=== PATIENT | male | born 1955 | race Caucasian/White ===

== ENCOUNTER 2019-10-18 07:51 | Outpatient (CLI) | payer OTHER, SELFPAY ==
--- NOTE | 2019-10-18 08:14 | CT_ITS ---
WS: [id number] CT CHEST TECHNIQUE: Contrast enhanced CT of the chest with coronal and sagittal reformatted images. CLINICAL INFORMATION: RIGHT UPPER LOBE NEOPLASM COMPARISON: Outside CT report August 28, 2019. Images not currently available DLP: 908.[address] scans at [facility] use at least one of these dose optimization techniques: automat ed exposure control; mA and/or kV adjustment per patient size (includes targeted exams where dose is matched to clinical indication); or iterative reconstruction. FINDINGS: Moderate chronic emphysematous changes. No acute pulmonary infiltrates. Slightly spiculated pulmonary nodule in the right upper lobe anteriorly measuring 12 x x 6 x 12 mm not significantly changed from the outside report. 4 mm noncalcified pulmonary nodule right upper lobe increased in size since the p rior report. No other visualized nodules. Advanced calcified atheromatous disease involving the aortic arch and great vessels. Ulcerated athero matous disease involving the aortic arch. Left subclavian artery is occluded at just distal to the or igin and reconstitutes proximally at the level of the vertebral artery. Recommend ultrasound to evalu ate for subclavian steal. Moderate narrowing left common carotid artery which remains patent. Coronary calcification. No medias tinal or hilar lymphadenopathy. No axillary lymphadenopathy. Adrenal glands are normal. CT/CT chest w con* [id number] IMPRESSION: 1. Spiculated right upper lobe anterior nodule is stable in size compared to t he prior report. Recommend 6 month follow-up 2. 4 mm noncalcified nodule right upper lobe increased in size compared to the prior report. Recommend 6 month follow-up. 3. Left subclavian artery is occluded just distal to the origin with reconstit ution at the level of the vertebral artery. Recommend ultrasound to evaluate fo r subclavian steal. 4. Advanced atheromatous disease with coronary calcification.
[2019-10-18] MEDS: iohexol 300 mg/mL 100 mL Btl IV (08:41)
== END 2019-10-18 07:52 | disposition home or self-care (01) ==
PROVIDERS: Family Provider Internal Medicine; PCP Internal Medicine; Visit Provider Internal Medicine
DX: D49.1 Neoplasm of unspecified behavior of respiratory system (principal); R91.8 Other nonspecific abnormal finding of lung field; I77.1 Stricture of artery; I25.10 Atherosclerotic heart disease of native coronary artery without angina pectoris
CPT/HCPCS: 71260; Q9967

== ENCOUNTER 2020-01-27 19:57 | Emergency (ER) | payer OTHER, SELFPAY ==
[2020-01-27 20:04] VITALS: BP 177/84; PULSE 91; RESP 20; TEMP 36.6; O2SAT 92; BMI 24.9
[2020-01-27 20:14] VITALS: BMI 21.7
--- NOTE | 2020-01-27 20:17 | ED_ITS ---
HPI - Wound/Laceration General: Chief Complaint: Wound/Laceration Stated Complaint: hand lac Time Seen by Provider: 01/27/20 20:06 History of Present Illness: HPI narrative: Patient is a 64-year-old male who comes to the ED with a laceration on his left hand. An injury occurred just prior to arrival. Patient says he was opening a wine bottle and he used his pocket knife and accidentally cut his left hand. Laceration is in the webspace between thumb and index finger. Initially said there is a lot of bleeding but he was able to put pressure and place a bandage and bleeding stopped. Patient's last tetanus was a year ago. Associated symptoms: Denies chills, fever(s), nausea or vomiting Review of Systems Const: Denies: fever, chills or fatigue Eyes: Denies: change in vision or eye discomfort ENMT: Denies: throat pain, painful swallowing, nasal discharge or nasal congestion Card: Denies: chest pain, palpitations, edema, swelling of feet/ankles, shortness of breath on exertion or shortness of breath when lying down Resp: Denies: shortness of breath, productive cough or non-productive cough GI: Denies: abdominal pain, nausea, vomiting, diarrhea, constipation or blood in stool : Denies: flank pain, difficulty urinating, painful urination or blood in urine Musc: Denies: neck pain, back pain or extremity swelling Skin/Breast: Reports: new lesion (laceration on left hand.); Denies: rash Neuro: Denies: headache, numbness in extremities or weakness in extremities [facility] ED PFSH: Social History Smoking and tobacco status: unknown if ever smoked Physical Exam Const: COMMON NORMALS: no apparent distress, oriented x3 and alert GENERAL APPEARANCE: cooperative and comfortable HENMT: COMMON NORMALS: normocephalic HEAD & SCALP: normocephalic MOUTH: oral and palatal mucosa normal THROAT: posterior oropharynx normal and uvula midline Eye: COMMON NORMALS: PERRL PUPIL: Yes PERRL Neck/C-Spine: COMMON NORMALS: supple GENERAL: Yes normal visual inspection Resp: COMMON NORMALS: normal respiratory effort, no retractions, no use of accessory muscles and clear to auscultation bilaterally AUSCULTATION: clear to auscultation bilaterally Cardio: COMMON NORMALS: regular rate, regular rhythm, S1 normal heart sound, S2 normal heart sound, no gallops, no clicks, no murmurs and peripheral pulses 2+ throughout RATE: regular rate RHYTHM: regular rhythm HEART SOUNDS: S1 normal and S2 normal PERIPHERAL PULSES: pulses 2+ throughout GI: COMMON NORMALS: normal to inspection, nondistended, normoactive bowel sounds, soft to palpation, non-tender and no masses PALPATION: Yes soft : COMMON NORMALS: Yes no CVA tenderness BLADDER/KIDNEY EXAM: Yes no CVA tenderness Back/Pelvis: COMMON NORMALS: no CVA tenderness Extremity: COMMON NORMALS: normal capillary refill GENERAL: Yes normal exam except as noted LEFT UPPER EXTREMITY: Yes hand & digits (Laceration is in the webspace between index and thumb.) Left hand and digits: Yes inspection (1 cm linear laceration, no active bleeding. No erythema, swelling or warmth.), Yes palpation (mild tenderness over laceration), Yes ROM (Full), Yes neurovascular exam (intact) and Yes tendon exam (intact) Neuro: COMMON NORMALS: oriented x3 and moves all extremities SENSORIUM/OR IENTATION: Yes alert Skin: TRAUMA: laceration (1 cm linear laceration on webspace between thumb and index finger left hand.) linear, motor nerve function intact and sensation intact; not actively bleeding Procedures Laceration Laceration 1: Site: hand (web space between thumb and index) Side (If applicable): left Size (cm): 1 Description: linear and clean Depth: simple, single layer Local Anesthetic: other anesthetic (pt refused local anesthetic--he stated he doesn't need.) Pre-repair: irrigated extensively (with NS and peroxide) Skin layer closed with: nylon Size (cm): 4-0 Number of sutures: 3 Technique: simple, interrupted Course Vital Signs: Vital signs: Vital Signs Temperature 98.1 F 01/27/20 20:20 Pulse Rate 88 01/27/20 21:22 Respiratory Rate 16 01/27/20 21:22 Blood Pressure 200/87 01/27/20 21:22 Pulse Oximetry 93 01/27/20 21:22 MDM - Wound/Laceration MDM Narrative: Medical decision making narrative: Patient is a 64-year-old male who comes to the ED with a laceration on left hand. Patient said last tetanus shot was a year ago. Laceration was closed with 3 sutures (see procedure notes). Patient was instructed to follow-up with PCP or ED to have sutures removed in 7 to 10 days. Patient was put on a prophylactic dose of cephalexin. He was told to keep laceration site dry and clean for the next 48 hours and then after that he can clean site and apply new dressing daily. Patient told to look for signs of infection, such as warmth, erythema, drainage and tenderness around the laceration site and if he sees signs of infection to return to the ED for reevaluation. Patient understood and agreed with plan. Discharge Plan Discharge Patient Disposition: Home, Self-Care Clinical Impression: Laceration Condition: Stable Prescriptions: New cephalexin 500 mg capsule 500 mg PO BID 5 Days Qty: 10 RF: 0 No Action Unable to Assess RF: 0 Discharge Orders: Discharge Order (Routine); Ordered 01/27/20 Ordered By: Ezra Liz Referrals: Florentino Tamayo [Primary Care Provider] - Discharge Diet: Regular Discharge Activity: Resume usual activity Patient Instructions: Laceration Activity Restrictions/Additional Instructions: Follow-up with your PCP to have sutures removed in 7 to 10 days. Take full course of antibiotics as prescribed. Keep laceration clean and dry for the next 48 hours. After 48 hours you can clean and re-bandage daily. Look for signs of infection such as warmth, redness, drainage and tenderness around laceration site. If you notice any of those symptoms you can return to the ED for reevaluation. Discharge Date/Time: 01/27/20 21:20 Coding Level of Care Code ED Principal Ios Developer for Brianda Paul Exam Comprehensive
[2020-01-27 20:20] VITALS: BP 190/88; PULSE 68; RESP 18; TEMP 36.7; O2SAT 97
--- NOTE | 2020-01-27 20:25 | PC.NURSE ---
Triage entered in by Britney, RN was entered in by error
[2020-01-27] MEDS: cephALEXin 500 mg Capsule PO (21:09)
[2020-01-27 21:22] VITALS: BP 200/87; PULSE 88; RESP 16; O2SAT 93
== END 2020-01-27 21:20 | disposition home or self-care (01) ==
PROVIDERS: Emergency Provider Physician Assistant; Family Provider Internal Medicine; PCP Internal Medicine
DX: S61.412A Laceration without foreign body of left hand, initial encounter (principal); W26.0XXA Contact with knife, initial encounter
CPT/HCPCS: 12001; 12345; 99283

== ENCOUNTER → 2020-09-28 13:06 | Outpatient (BNVA) | payer OTHER, SELFPAY | PROVIDERS: Family Provider Internal Medicine; PCP Internal Medicine; Visit Provider Internal Medicine | DX: Z11.59 Encounter for screening for other viral diseases (principal) | CPT/HCPCS: 87635 ==

== ENCOUNTER 2021-01-08 07:48 | Outpatient (CLI) | payer OTHER, SELFPAY ==
--- NOTE | 2021-01-08 08:05 | CT_ITS ---
WS: [id number] CTA HEAD AND NECK TECHNIQUE: Contrast enhanced CTA of the head and neck with coronal and sagittal reformatted images an d maximum intensity projection (MIP) images. NASCET criteria utilized. CLINICAL INFORMATION: CAROTID STENOSIS, BILATERAL COMPARISON: December 27, 2018 DLP: 2233.[address] scans at [facility] use at least one of these dose optimization techniques: automat ed exposure control; mA and/or kV adjustment per patient size (includes targeted exams where dose is matched to clinical indication); or iterative reconstruction. FINDINGS: Noncontrast CT demonstrates no evidence of intracranial hemorrhage or mass effect. Moderate small vessel changes with moderate parenchymal volume loss. Chronic lacunar infarcts right caudate. Opacification left maxillary sinus consistent with sinusitis. Mastoid air cells well aerated. RIGHT: Stenosis right common carotid artery origin measuring approximately 50%. Right internal caroti d artery is occluded at the origin. Right ECA is patent. Right ICA remains occluded to the skull base . Dense vascular calcification are not bulb. This appears new from previous. LEFT: Moderate stenosis left common carotid artery origin measuring 69%. Stenosis left proximal commo n carotid artery measuring approximately 60%. Mild atheromatous plaque left carotid bulb. Less than 5 0% left ICA stenosis. Left ICA is patent to the skull base. Tortuous left ICA. Left subclavian artery is occluded at the origin. Left subclavian steal with filling of the left subc lavian artery. Right vertebral artery is patent. Proximal basilar artery is patent. INTRACRANIAL CTA: Proximal basilar artery is patent. Normal vascularity to the WEB DEVELOPMENT DIRECTOR territory bilatera lly. Right ICA is occluded at the skull base. Tortuous left ICA at the skull base which remains patent. Mo derate to severe stenosis left proximal cavernous carotid artery which remains patent. Patent anterio r communicating artery. Azygos ALEXIS with normal filling of the ALEXIS and MCA territories bilaterally. No evidence of high-grade proximal stenosis or aneurysm. Chronic emphysematous changes in the lung apic es. Aortic arch calcification. CT/CT angio headneck* [id number] IMPRESSION: 1. Right ICA is occluded at the origin and remains occluded to the skull base. This is new since 2019. 2. Left common carotid artery stenosis at the origin measuring approximately 6 9%. Less than 50% left ICA stenosis at the bifurcation. Left ICA remains patent to the skull base. 3. Moderate to severe stenosis intracranial ICA proximal cavernous carotid art yoli. Cavernous carotid artery remains patent. 4. Left subclavian artery is occluded with subclavian steal and filling via th e left vertebral artery. 5. Right vertebral artery is patent. 6. Normal vascularity to the ALEXIS MCA territory bilaterally part. Patent anteri or connecting artery. 7. Basilar artery is patent with normal vascularity to the WEB DEVELOPMENT DIRECTOR territory makayla vaca. 8. Left maxillary sinusitis..
[2021-01-08 08:31] LABS: Blood Urea Nitrogen 7 mg/dL (8-23); Glomerular Filtration Rate 136.1 mL/min (90-130)
[2021-01-08] MEDS: iohexol 350 mg/mL 100 mL Btl IV (08:45)
== END 2021-01-08 07:49 | disposition home or self-care (01) ==
PROVIDERS: PCP Family Medicine; Visit Provider Surgery
DX: I65.23 Occlusion and stenosis of bilateral carotid arteries (principal)
CPT/HCPCS: 70496; 70498; 82565; 84520; Q9967

== ENCOUNTER 2021-03-17 07:47 | Outpatient (CLI) | payer OTHER, SELFPAY ==
--- NOTE | 2021-03-17 08:04 | CT_ITS ---
WS: [id number] CTA ABDOMEN TECHNIQUE: Noncontrast plus contrast enhanced CTA of the abdominal aorta with coronal and sagittal re formatted images and additional MIP Images. CLINICAL INFORMATION: ABDOMINAL AORTIC ANEURYSM WITHOUT RUPTURE COMPARISON: None. DLP: 1493.[address] scans at [facility] use at least one of these dose optimization techniques: automat ed exposure control; mA and/or kV adjustment per patient size (includes targeted exams where dose is matched to clinical indication); or iterative reconstruction. FINDINGS: Moderate aortic atheromatous disease. Infrarenal abdominal aortic aneurysm measuring 2.9 x 3.5 cm AP by transverse. Densely calcified atheromatous disease. Celiac is patent. SMA is patent. Mild stenosis at the SMA origin. Mild stenosis at the left renal artery origin. 2 small right renal arteries which are patent. Densely calcified common iliac arteries. 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 Recommend correlation for recent vascular access. This can be further sally luated with ultrasound. This originates from the right common femoral artery and appears to communica te with the common femoral vein compatible with pseudoaneurysm. Lung bases are well aerated. Mild hepatomegaly. Diffuse fatty infiltration liver. Normal spleen. Norm al GE junction. Adrenal glands are normal. Normal renal parenchymal enhancement. No hydronephrosis. M ild prominence of the common bile duct. Normal sigmoid colon. No evidence of small or large bowel obstruction. Tiny fat-containing umbilical hernia. CT/CT angio abdomen pelvis [id number] IMPRESSION: 1. Small infrarenal abdominal aortic aneurysm measuring 2.9 x 3.5 cm AP by tra nsverse. 2. 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 Recommend correlation with recent endovascu lar intervention. This can be further evaluated with ultrasound. Recommend vas ular surgery/endovascular surgery consultation. 3. Celiac and SMA are patent with calcified atheromatous disease at the origin s. 4. Single left and 2 right renal arteries are patent with mild calcification o f the origins. 5. Other nonvascular findings described above.
[2021-03-17 08:31] LABS: Blood Urea Nitrogen 10 mg/dL (8-23); Glomerular Filtration Rate 97.6 mL/min (90-130)
[2021-03-17] MEDS: iohexol 350 mg/mL 100 mL Btl IV (08:53)
== END 2021-03-17 07:48 | disposition home or self-care (01) ==
PROVIDERS: Radiology Neuroradiology; PCP Family Medicine; Visit Provider Surgery Vascular Surgery
DX: I71.4 Abdominal aortic aneurysm, without rupture (principal)
CPT/HCPCS: 74174; 82565; 84520; Q9967

== ENCOUNTER 2022-06-17 22:14 | Inpatient (IN) | payer OTHER, SELFPAY ==
[2022-06-17 22:15] VITALS: BP 198/98; PULSE 69; RESP 24; TEMP 36.4; O2SAT 92; BMI 22.4
--- NOTE | 2022-06-17 22:25 | XRR_ITS ---
PROCEDURE INFORMATION: Exam: XR Chest Exam date and time: 06/17/2022 10:38 PM Age: 66 years old Clinical indication: Shortness of breath; Patient HX: SOB with diaphoresis and hypertension TECHNIQUE: Imaging protocol: Radiologic exam of the chest. Views: 1 view. COMPARISON: CT chest w con* [id number] 10/18/2019 8:30 AM FINDINGS: Lungs: Right lower lobe developing pneumonia suspected. Emphysematous changes. Pleural spaces: Unremarkable. No pleural effusion. No pneumothorax. Heart/Mediastinum: Cardiomegaly. Bones/joints: Unremarkable. XR/XR chest 1V portable [id number] IMPRESSION: 1. Right lower lobe developing pneumonia suspected. 2. Cardiomegaly. 3. Emphysematous changes.
--- NOTE | 2022-06-17 22:25 | ECG_ITS ---
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 Measurements Intervals [place] Rate: 67 P: 69 MN: 197 QRS: -49 QRSD: 153 T: 81 QT: 478 QTc: 508 Interpretive Statements SINUS RHYTHM WITH OCCASIONAL SUPRAVENTRICULAR PREMATURE COMPLEXES RIGHT BUNDLE BRANCH BLOCK [120+ ms QRS DURATION, UPRIGHT V1, 40+ ms S IN I/aVL/V4/V5/V6] LEFT ANTERIOR FASCICULAR BLOCK [QRS AXIS <= -45, QR IN I, RS IN II] Compared to ECG 12/27/2018 20:38:48 Left anterior fascicular block now present Electronically Signed On 06-18-2022 16:25:50 CDT by Elidia Simpson M.D. [id number] f
[2022-06-17 22:39] LABS: Basophils # 0.1 10^3/uL (0.0-0.1); Basophils % 0.6 %; Eosinophils # 0.2 10^3/uL (0.0-0.8); Eosinophils % 1.8 %; Hematocrit 44.8 % (42.0-52.0); Hemoglobin 14.5 g/dL (11.7-16.6); Lymphocytes # 1.7 10^3/uL (0.8-4.8); Lymphocytes % 18.4 %; Mean Corpuscular HGB Conc 32.4 g/dL (30.0-36.0); Mean Corpuscular Hemoglobin 29.5 pg (28.0-34.0); Mean Corpuscular Volume 91.1 fl (80-94); Mean Platelet Volume 10.9 fL (7.4-10.4); Monocytes # 0.5 10^3/uL (0.2-0.9); Monocytes % 5.6 %; Neutrophils # 6.82 10^3/uL (1.8-7.7); Neutrophils % 73.2 %; Nucleated Red Blood Cells % 0 %; Platelet Count 320 10^3/cmm (130-400); Red Blood Count 4.92 10^6/uL (4.1-5.3); Red Cell Distribution Width 13.9 % (12.1-15.1); White Blood Count 9.3 10^3/uL (4.0-10.0)
--- NOTE | 2022-06-17 22:40 | CTR_ITS ---
PROCEDURE INFORMATION: Exam: CTA Chest With Contrast Exam date and time: 06/17/2022 11:31 PM Age: 66 years old Clinical indication: Abnormal findings; Abnormal diagnostic tests; Elevated d-dimer; Cough and shortness of breath; Prior surgery; Surgery type: Subclavian stent. Aaa endograft. Patient HX: Cough with SOB. Elevated d dimer. History of lung cancer and prior pe. ; Additional info: SOB, history or pe, cancer TECHNIQUE: Imaging protocol: Computed tomographic angiography of the chest with contrast. 3D rendering (Not supervised by radiologist): MIP and/or 3D reconstructed images were created by the technologist. Radiation optimization: All CT scans at this facility use at least one of these dose optimization techniques: automated exposure control; mA and/or kV adjustment per patient size (includes targeted exams where dose is matched to clinical indication); or iterative reconstruction. Contrast material: OMNI 350; Contrast volume: 95 ml; Contrast route: INTRAVENOUS (IV); COMPARISON: CT chest w con* [id number] 10/18/2019 8:30 AM RADIATION DOSE METRICS: Total DLP (mGy-cm): 410.31 FINDINGS: Pulmonary arteries: Normal. No pulmonary emboli. Aorta: Unremarkable. No aortic aneurysm. No aortic dissection. Lungs: Emphysematous changes suspected. Pleural spaces: Small bilateral pleural effusions. Right middle to upper lobe 4 cm mass contacting the anterior pleura of the lung and mediastinum, concerning for underlying malignancy as in provided history. Heart: Coronary artery atherosclerotic calcifications. Cardiomegaly. Lymph nodes: Scattered prominent mediastinal lymph nodes measuring up to 18 mm, nonspecific. Bones/joints: Unremarkable. No acute fracture. Soft tissues: Unremarkable. CT/CT angio chest PE protcl [id number] IMPRESSION: 1. Negative for pulmonary embolus. 2. Scattered prominent mediastinal lymph nodes measuring up to 18 mm, nonspecific. 3. Coronary artery atherosclerotic calcifications. 4. Cardiomegaly. 5. Small bilateral pleural effusions. 6. Emphysematous changes suspected. 7. Right middle to upper lobe 4 cm mass contacting the anterior pleura of the lung and mediastinum, concerning for underlying malignancy as in provided history.
[2022-06-17 22:48] VITALS: PULSE 62; RESP 20; O2SAT 93
[2022-06-17] MEDS: ipratropium-albuterol 3 mL Neb INHALATION (22:48)
[2022-06-17 22:49] VITALS: BP 194/101; PULSE 64; RESP 25; O2SAT 92
[2022-06-17 22:51] VITALS: PULSE 61
[2022-06-17 22:52] LABS: D Dimer 1.91 ug/mIFEU (0-0.59)
[2022-06-17 23:00] LABS: Alanine Aminotransferase 17 U/L (0-41); Albumin Level 3.4 g/dL (3.5-5.2); Alkaline Phosphatase 95 U/L (40-130); Anion Gap 17.1 (5-19); Aspartate Amino Transferase 24 U/L (0-40); Blood Urea Nitrogen 17 mg/dL (8-23); Calcium 8.9 mg/dL (8.5-10.5); Carbon Dioxide 23 mmol/L (22-29); Chloride 102 mmol/L (98-107); Globulin 3.8 g/dL (1.3-4.6); Glomerular Filtration Rate 55.6 mL/min (90-130); Glucose 202 mg/dL (65-115); Osmolality Calculated 293 mOsm/kg (285-295); Potassium 4.1 mmol/L (3.5-5.1); Sodium 138 mmol/L (136-145); Total Bilirubin 0.2 mg/dL (0.15-1.2); Total Protein 7.2 g/dL (6.6-8.7)
--- NOTE | 2022-06-17 23:01 | ED_ITS ---
HPI - Dizziness General: Chief Complaint: Dizziness Stated Complaint: HTN URGENCY Time Seen by Provider: 06/17/22 22:15 History of Present Illness: HPI Narrative: . 66-year-old male presenting today with shortness of breath. Patient is a poor historian. But appears to have had shortness of breath for least 3 days. Shortness of breath is getting gradually worse. Has a distant history of COPD and lung cancer. Has not had any evaluation or treatment for his lung cancer. Told he was supposed to have a biopsy. Which he never received. He denies fevers. He denies pain or swelling in his lower extremities. He does have a history of blood clots. Review of Systems General: Reports: 10 or more systems reviewed and unremarkable except in HPI and below PFSH ED PFSH: Medical History (Updated 06/18/22 @ 03:54 by David Welsh MD) GERD (gastroesophageal reflux disease) History of aortic aneurysm History of blood clots History of COPD History of CVA (cerebrovascular accident) History of lung cancer Hypertension Surgical History (Updated 06/18/22 @ 03:53 by David Welsh MD) History of heart artery stent Social History (Updated 07/21/21 @ 10:36 by Corinna Castaneda) Smoking and tobacco status: current every day smoker service: Yes History of recent travel: No Course Vital Signs: Vital signs: Vital Signs Temperature 97.8 F 06/18/22 04:41 Pulse Rate 63 06/18/22 04:53 Respiratory Rate 18 06/18/22 04:53 Blood Pressure 162/94 06/18/22 04:41 Pulse Oximetry 93 06/18/22 04:53 Oxygen Delivery Dc thod 06/18/22 04:53 Oxygen Flow Rate 2 06/18/22 04:53 MDM - Dizziness Medical Decision Making 66-year-old male presenting today with shortness of breath. Diffuse expiratory wheezing in all earl. Chest x-ray with evidence of right lower lobe pneumonia. Patient started on ceftriaxone azithromycin blood cultures drawn. In addition patient was given Solu-Medrol, duo nebs. For suspected COPD. CTA without significant other abnormality. Does have a lung cancer. Which is known to the patient. Given increased work of breathing, pneumonia, and COPD with new oxygen requirement will admit to the hospital for further observation and management. Lab Data : 06/17/22 22:06/17/22: Radiology Impressions Chest X-Ray 06/17/22 22:25 IMPRESSION: 1. Right lower lobe developing pneumonia suspected. 2. Cardiomegaly. 3. Emphysematous changes. Chest CTA 06/17/22 22:40 IMPRESSION: 1. Negative for pulmonary embolus. 2. Scattered prominent mediastinal lymph nodes measuring up to 18 mm, nonspecific. 3. Coronary artery atherosclerotic calcifications. 4. Cardiomegaly. 5. Small bilateral pleural effusions. 6. Emphysematous changes suspected. 7. Right middle to upper lobe 4 cm mass contacting the anterior pleura of the lung and mediastinum, concerning for underlying malignancy as in provided history. Laboratory Results WBC 9.3 10^3/uL (4.0-10.0) 06/17/22: RBC 4.92 10^6/uL (4.1-5.3) 06/17/22: Hgb 14.5 g/dL (11.7-16.6) 06/17/22: Hct 44.8 % (42.0-52.0) 06/17/22: MCV 91.1 fl (80-94) 06/17/22: MCH 29.5 pg (28.0-34.0) 06/17/22: MCHC 32.4 g/dL (30.0-36.0) 06/17/22: RDW 13.9 % (12.1-15.1) 06/17/22: Plt Count 320 10^3/cmm (130-400) 06/17/22: MPV 10.9 fL (7.4-10.4) H 06/17/22: Neut % (Auto) 73.2 % 06/17/22: Lymph % (Auto) 18.4 % 06/17/22: Sequoyah % (Auto) 5.6 % 06/17/22 Eos % (Auto) 1.8 % 06/17/22 Baso % (Auto) 0.6 % 06/17/22 Neut # (Auto) 6.82 10^3/uL (1.8-7.7) 09/22/22 22:29 Lymph # (Auto) 1.7 10^3/uL (0.8-4.8) 06/17/22 22:29 Sequoyah # (Auto) 0.5 10^3/uL (0.2-0.9) 06/17/22 22:29 Eos # (Auto) 0.2 10^3/uL (0.0-0.8) 06/17/22 22:29 Baso # (Auto) 0.1 10^3/uL (0.0-0.1) 06/17/22 22: Nucleated RBC % (auto) 0 % 06/17/22 22: Nucleated RBCs # 0.0 /100WBC 06/17/22 22: D-Dimer 1.91 ug/mIFEU (0-0.59) H 06/17/22 22:29 Specimen Type Venous 06/18/22 01:15 Sample Site Not specified 06/18/22 01:15 Josh Test N/a 06/18/22 01:15 VBG pH 7.38 (7.32-7.42) 06/18/22 01:15 VBG pCO2 42.5 mmHg (41-51) 06/18/22 01:15 VBG pO2 < 30.1 mmHg (25-40) 06/18/22 01:15 VBG HCO3 25.0 mmol/L (24-28) 06/18/22 01:15 VBG Base Excess -0.3 mmol/L (-3.0-3.0) 06/18/22 01:15 VBG Hematocrit 41.1 % (42-52) L 06/18/22 01:15 O2 Delivery Device None 06/18/22 01:15 Brickmason Apprentice ID [place] 06/18/22 01:15 Sodium 138 mmol/L (136-145) 06/17/22 22:29 Potassium 4.1 mmol/L (3.5-5.1) 06/17/22 22: Chloride 102 mmol/L (98-107) 06/17/22 22: Carbon Dioxide 23 mmol/L (22-29) 06/17/22 22:29 Anion Gap 17.1 (5-19) 06/17/22 22:29 BUN 17 mg/dL (8-23) 06/17/22 22:29 Creatinine 1.3 mg/dL (0.7-1.2) H 06/17/22 22:29 GFR Calculation 55.6 mL/min (90-130) L 06/17/22 22:29 Glucose 202 mg/dL (65-115) H 06/17/22 22:29 Calculated Osmolality 293 mOsm/kg (285-295) 06/17/22 22:29 Calcium 8.9 mg/dL (8.5-10.5) 06/17/22 22:29 Total Bilirubin 0.2 mg/dL (0.15-1.2) 06/17/22 22:29 AST 24 U/L (0-40) 06/17/22 22:29 ALT 17 U/L (0-41) 06/17/22 22:29 Alkaline Phosphatase 95 U/L (40-130) 06/17/22 22:29 Troponin T Baseline 69 ng/L (0-15) H 06/17/22 22:29 Troponin T 120 Minute 86.23 ng/L (0-15) H 06/18/22 01:00 Delta Troponin T 17.23 ABS# (0-10) H* 06/18/22 01:00 Total Protein 7.2 g/dL (6.6-8.7) 06/17/22 22: Albumin 3.4 g/dL (3.5-5.2) L 06/17/22 22: Globulin 3.8 g/dL (1.3-4.6) 06/17/22 22:29 Discharge Plan Discharge Patient Disposition: Admitted As Inpatient Admit Provider: David Welsh Clinical Impression: Pneumonia, COPD (chronic obstructive pulmonary disease), Lung cancer Condition: Stable Coding Level of Care Code ED French Folder for Brianda Paul
[2022-06-17 23:03] LABS: Troponin(5th) Baseline 69 ng/L (0-15)
[2022-06-17 23:04] VITALS: BP 187/90; PULSE 61; RESP 18; O2SAT 91
[2022-06-17 23:19] VITALS: BP 183/84; PULSE 60; RESP 22; O2SAT 91
[2022-06-17] MEDS: iohexol 350 mg/mL 100 mL Btl IV (23:43)
[2022-06-18] VITALS (17 sets, daily range): BP systolic 146–185; BP diastolic 83–103; PULSE 61–73; RESP 16–28; TEMP 36.6; O2SAT 91–93
[2022-06-18] MEDS: cefTRIAXone 2,000 MG in sodium chloride 0.9% (plus) 50 ML 100 MG IV (00:20)
[2022-06-18] MEDS: azithromycin 500 MG in sodium chloride 0.9% 250 ML 250 MG IV (00:20)
--- NOTE | 2022-06-18 00:25 | ECG_ITS ---
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 Measurements Intervals [place] Rate: 62 P: 48 [place]: 194 QRS: -38 QRSD: 150 T: 94 QT: 487 QTc: 498 Interpretive Statements SINUS RHYTHM LEFT AXIS DEVIATION [QRS AXIS < -30] RIGHT BUNDLE BRANCH BLOCK [120+ ms QRS DURATION, UPRIGHT V1, 40+ ms S IN I/aVL/V4/V5/V6] Compared to ECG 06/17/2022 22:28:57 Left-axis deviation now present Left anterior fascicular block no longer present Electronically Signed On 06-18-2022 16:31:40 CDT by Elidia Simpson M.D. [email or web address] Mediaparkwood behavioral health [email or web address] Cloudmiami valley [email or web address].[id number]
[2022-06-18 01:31] LABS: Troponin 5 2HR 86.23 ng/L (0-15)
[2022-06-18 01:54] LABS: Troponin 5 2HR Delta 17.23 ABS# (0-10)
[2022-06-18 03:38] LABS: Base Excess VBG -0.3 mmol/L (-3.0-3.0); Blood Gas Operator Identificat WALCI; Blood Gas Sample Site Not specified; Blood Gas Sample Type Venous; PCO2 VBG 42.5 mmHg (41-51); PO2 VBG < 30.1 mmHg (25-40); Venous Blood Gas Hematocrit 41.1 % (42-52); pH VBG 7.38 (7.32-7.42)
--- NOTE | 2022-06-18 03:45 | P.HP_ITS ---
Providers/Chief Complaint Admitting Physician: David Welsh MD Primary Care Provider: Cathy Trevizo MD Chief Complaint: HTN URGENCY History of Present Illness Randolph Salomon is a 66 year old male with a past medical history of CVA status post tPA, history of type 2 diabetes mellitus, history of GERD, history of hypertension history of left subclavian artery occlusion, mild pulm hy pertension, grade 1 diastolic dysfunction, aortic valve calcification, history of pulmonary embolism, history of aortic aneurysm history of hypertension, GERD, history of known for centimeter mass contacting the anterior pleura of the lung in the mediastinum, concerning for malignancy, lost to follow-up emphysema, COPD who presents [facility] for concerns for shortness of breath. Patie nt tells me that he has been feeling short of breath for the last few days, shortness of breath with exertion, reports smoking, history of COPD, denies any calf pain or calf swelling, no hemoptysis. He does report a history of blood clots in the past, sounds a lot like pulmonary embolism from what he describes. He he denies any chest pain, denies any palpitations. He is not exactly sure why he is on aspirin and Plavix, [facility] In terms of his lung mass, he followed up with a lung physician that comes to [facility] every month or so, he was supposed to have a lung biopsy of the mass, but it never got scheduled and he never saw the physician again the commodity specialist. He is hyper tensive blood pressure at 185/103, does not take any blood pressure medications at home. Currently on 3 L, does not use oxygen at home Review of Systems Const: Denies: fever(s) Card: Denies: chest pain Resp: Reports: dyspnea and non-productive cough GI: Denies: abdominal pain Neuro: Denies: headache(s), numbness in extremities or weakness in extremities Medications/Allergies Home Medications Medication Instructions Recorded Confirmed Last Taken Type aspirin 81 mg tablet,delayed 81 mg PO DAILY 07/21/21 07/21/21 Unknown History release cholecalciferol (vitamin D3) 50 50 mcg PO BID 07/21/21 07/21/21 Unknown History mcg (2,000 unit) capsule clopidogrel 75 mg tablet (Plavix) 75 mg PO DAILY 07/21/21 07/21/21 Unknown History multivitamin 1 tab PO DAILY 07/21/21 07/21/21 Unknown History omega-3 fatty acids 1,000 mg 1,000 mg PO BID 07/21/21 07/21/21 Unknown History capsule (Fish Oil Concentrate) pantoprazole 40 mg tablet,delayed 40 mg PO DAILY 07/21/21 07/21/21 Unknown History release Allergies Allergy/AdvReac Type Severity Reaction Status Date / Time No Known Allergies Allergy Verified 07/21/21 10:18 PFSH Acute PFSH: Medical History (Updated 06/18/22 @ 03:54 by David Welsh MD) GERD (gastroesophageal reflux disease) History of aortic aneurysm History of blood clots History of COPD History of CVA (cerebrovascular accident) History of lung cancer Hypertension Surgical History (Updated 06/18/22 @ 03:53 by David Welsh MD) History of heart artery stent Social History (Updated 07/21/21 @ 10:36 by Corinna Castaneda) Smoking and tobacco status: current every day smoker service: Yes History of recent travel: No Vitals/I&O/Wt Last Vital Signs Temp 97.5 F L 06/17/22 22:15 Pulse 64 06/18/22 03:00 Resp 27 H 06/18/22 03:00 BP 185/103 06/18/22 03:00 Pulse Ox 93 06/18/22 03:00 O2 Del Method 06/18/22 03:00 O2 Flow Rate 2.5 06/18/22 03:00 06/17/22 06/17/22 06/18/22 14:59 22:59 06:59 Intake Total 300 / 300 Balance 300 / 300 Weight last 48 hrs Weight 79.379 kg Physical Exam Const: COMMON NORMALS: no acute distress and patient oriented x3 HENMT: COMMON NORMALS: normocephalic HEAD & SCALP: normocephalic Eye: COMMON NORMALS: Equal, round and reactive pupils present and EOMs intact bilaterally Neck/C-Spine: COMMON NORMALS: no JVD Resp: COMMON NORMALS: normal respiratory effort, No retractions, No use of accessory muscles and clear to auscultation bilaterally AUSCULTATION: clear to auscultation bilaterally Cardio: COMMON NORMALS: no JVD, regular rate, regular rhythm, S1 normal heart sound present and S2 normal heart sound present RATE: regular rate RHYTHM: regular rhythm HEART SOUNDS: S1 normal heart sound present and S2 normal heart sound present GI: COMMON NORMALS: Normal to inspection, nondistended, normoactive bowel sounds present, Soft to palpation, non-tender, No hepatosplenomegaly present, no masses and no bruits PALPATION: Yes Soft to palpation and Yes No hepatosplenomegaly present Extremity: COMMON NORMALS: no pedal edema Neuro: COMMON NORMALS: patient oriented x3, CN's II-XII intact bilaterally, moves all extremities and no focal motor deficits Psych: COMMON NORMALS: mental status grossly normal Data : 06/17/22 22:29 06/17/22 22:29 Micro: Microbiology 06/18/22 00:15 Blood Culture - Preliminary Blood SPECIMEN COLLECTED 06/18/22 00:15 Blood Culture - Preliminary Blood SPECIMEN COLLECTED A&P Assessment and plan (1) Acute respiratory failure with hypoxia: Status: Acute (2) Pneumonia: Status: Acute (3) COPD (chronic obstructive pulmonary disease): Status: Acute (4) Lung cancer: Status: Acute (5) Hypertensive urgency: Status: Acute (6) NSTEMI (non-ST elevated myocardial infarction): Status: Acute Plan Randolph Salomon is a 66 year old male with a past medical history of CVA status post tPA, history of type 2 diabetes mellitus, history of GERD, history of hypertension history of left subclavian artery occlusion, mild pulm hypertension, grade 1 diastolic dysfunction, aortic valve calcification, history of pulmonary embolism, history of aortic aneurysm history of hypertension, GERD, history of known for centimeter mass contacting the anterior pleura of the lung in the mediastinum, concerning for malignancy, lost to follow-up emphysema, COPD who presents [facility] for concerns for shortness of breath. Acute hypoxic respiratory failure -Concerning for acute COPD exacerbation -Possibly pneumonia, continue Rocephin and azithromycin follow blood cultures -Continue Solu-Medrol, budesonide, ipratropium -We will obtain a BNP -Obtain cardiac echo, venous ultrasound for DVT -Full code -Lovenox for DVT prophylaxis History of right middle to upper lobe 4 cm lung mass -?Right middle to upper lobe 4 cm mass contacting the anterior pleura of the lung and mediastinum, concerning for underlying malignancy as in provided history. -We will need to follow-up with pulmonary for bronchoscopy or biopsy NSTEMI -EKG shows ST depressions in anterior leads, 120-minute 86.2, delta 17.23 -Serial EKGs serial troponins telemetry monitoring -Aspirin, statin, Plavix, Coreg -No chest pain complaints -Cardiac echo Type 2 diabetes mellitus, not on insulin, not on any diabetic medication, check A1c Hypertensive urgency -Coreg 3.125 twice daily History of CVA History of pulmonary hypertension History of COPD, emphysema Attestations Medical Necessity Statement*: Patient requires hospitalization, inpatient, greater than 2 midnights for acute respiratory failure, NSTEMI, hypertensive urgency, Coding Level of Care Code 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
--- NOTE | 2022-06-18 04:25 | ECG_ITS ---
[facility] Test Date: 2022-06-18 Pat Name: Randolph Salomon Department: Room: 262 Gender: Male Second Operator: : 1955 Requested By: Shimon Servin Order Number: [id number] Mikki MD: Elidia Simpson M.D. Measurements Intervals [place] Rate: 64 P: 47 MD: 194 QRS: -33 QRSD: 148 T: 67 QT: 477 QTc: 494 Interpretive Statements SINUS RHYTHM LEFT AXIS DEVIATION [QRS AXIS < -30] RIGHT BUNDLE BRANCH BLOCK [120+ ms QRS DURATION, UPRIGHT V1, 40+ ms S IN I/aVL/V4/V5/V6] Compared to ECG 06/18/2022 00:35:06 No significant changes Electronically Signed On 06-18-2022 16:31:02 CDT by Elidia Simpson M.D. [email or web address]
--- NOTE | 2022-06-18 04:41 | USCV_ITS ---
Randolph Salomon Age: 66 Gender: M : 1955 Exam Date: 06/18/2022 08:05 Ordering Phys: David Welsh MD Technologist: Tl Betancourt Exam Location: [facility] [place] Indication: nstemi BP: 185 / 103 HR: 67 Rhythm: Sinus Technical Quality: Adequate MEASUREMENTS (Male / Female) Normal Values 2D ECHO LV Diastolic Diameter PLAX 5.3 cm 4.2 - 5.9 / 3.9 - 5.3 cm LV Systolic Diameter PLAX 3.3 cm IVS Diastolic Thickness 1.1 cm 0.6 - 1.0 / 0.6 - 0.9 cm IVS Systolic Thickness 1.4 cm LVPW Diastolic Thickness 1.2 cm 0.6 - 1.0 / 0.6 - 0.9 cm LVPW Systolic Thickness 1.4 cm LVOT Diameter 2.0 cm LV Ejection Fraction 2D Teich 67.3 % LV Ejection Fraction MOD 2C 56.5 % LV Ejection Fraction 2C AL 60.1 % LA Diameter 4.6 cm Aorta at Sinotubular Diameter 4.0 cm IVC Diameter 2.1 cm DOPPLER AV Peak Velocity 120.0 cm/s LVOT Peak Velocity 111.0 cm/s AV Area Cont Eq vti 2.8 cm squared AV Area Cont Eq pk 3.0 cm squared MV Area PHT 5.0 cm squared Mitral E to A Ratio 1.3 MV E' Velocity 39.0 cm/s Mitral E to MV E' Ratio 7.5 Mitral E to LV E' Lateral Ratio 5.4 Mitral E to LV E' Septal Ratio 12.7 TR Peak Velocity 272.3 cm/s TR Peak Gradient 29.6 mmHg TV Peak E Velocity 64.0 cm/s Right Atrial Pressure 8.0 mmHg Pulmonary Artery Systolic Pressu 37.6 mmHg FINDINGS Left Ventricle Mild biatrial enlargement normal left ventricular size and systolic function, EF 61 %. No regional wall motion abnormalities. Right Ventricle The right ventricle is normal in size and function. Right Atrium Mildly increased right atrial size. Left Atrium Mildly increased left atrial size. Mitral Valve Thickened mitral valve. Aortic Valve Thickened aortic valve. Moderate aortic valve calcification. Tricuspid Valve Trace tricuspid valve regurgitation. Estimated pulmonary artery peak systolic pressure 38 mmHg Pulmonic Valve Pulmonic valve not well visualized. Pericardium Normal pericardium without effusion. Aorta Normal ascending aorta dimension. IVC Dilated IVC with normal respiratory variation. CONCLUSIONS Normal left ventricular size and systolic function, EF 61 %. No regional wall motion abnormalities. Mild biatrial enlargement Thickened aortic and mitral valves. Moderate calcification of the aortic valve Trace tricuspid valve regurgitation. Estimated pulmonary artery peak systolic pressure 38 mmHg. There is no pericardial effusion. There are no intracardiac masses. Compared to the study from 12/28/2018, there may not be a significant change Dr Lela Ramirez MD FAC (Electronically Signed) Final Date: 18 June 2022 19:50 S
--- NOTE | 2022-06-18 04:41 | USCV_ITS ---
Randolph Salomon Age: 66 Gender: M : 1955 Exam Date: 06/18/2022 08:21 Ordering Phys: David Welsh MD Technologist: Tl Betancourt [place] [facility] [place]: rt leg swelling PROCEDURES: The venous duplex Doppler examination of both lower extremities was performed in the standard fashion. The following venous structures were evaluated: common femoral vein, profunda vein, proximal portion of the greater saphenous vein, superficial femoral vein, and the popliteal vein. In addition, the posterior tibial and peroneal trunk were evaluated. Bilaterally, the common femoral, superficial femoral, profunda femoral, popliteal, posterior tibial, greater saphenous veins, and the peroneal trunk were identified and interrogated in the standard fashion. These veins were found to be easily compressible with spontaneous blood flow. No evidence of insufficiency or thrombus noted. FINDINGS: Normal 2-D Doppler and augmentation and compressibility throughout the lower extremity venous structures. Additional imaging through the proximal calf veins also reveals no thrombus. Limited evaluation of the greater saphenous vein is patent with no thrombus.. CONCLUSIONS No evidence of right lower extremity DVT. No evidence of left lower extremity DVT. Adis Mares MD (Electronically Signed) Final Date: 18 June 2022 11:52 S
[2022-06-18 05:08] LABS: NT Pro B Type Natriuretic Pept 21140 pg/mL (0-125); Procalcitonin 0.03 ng/mL (0-0.5); Thyroid Stimulating Hormone 3.39 uIU/mL (0.27-4.20)
[2022-06-18 05:19] LABS: Chol HDL Ratio 4.68 mg/dL (1.0-5.00); Cholesterol 178 mg/dL (0-200); HDL Cholesterol 38 mg/dL (60-100); LDL Cholesterol Calculated 127 mg/dL (50-129); LDL HDL Ratio 3.34 RATIO (0.00-3.22); Triglycerides 63 mg/dL (0-150)
[2022-06-18] MEDS: enoxaparin 40 mg/0.4 mL Syringe SUBCUT (05:39)
[2022-06-18] MEDS: carvedilol 3.125 mg Tablet PO (05:39)
[2022-06-18] MEDS: spironolactone 25 mg Tablet PO (05:39)
[2022-06-18 05:49] LABS: Troponin 5 6HR 85.71 ng/L (0-15)
[2022-06-18 05:54] LABS: Lactic Sepsis W/Reflex 1.2 mmol/L (0.5-2.2)
[2022-06-18] MEDS: FUROsemide 10 mg/mL SDV 4mL 40 MG IVP (05:55)
[2022-06-18 05:59] LABS: Adenovirus Not Detected (NOT DETECT); Chlamydia Pneumoniae Not Detected (NOT DETECT); Coronavirus 229E,HKU1,NL63,OC4 Not Detected (NOT DETECT); Human Metapneumovirus Not Detected (NOT DETECT); Human Rhinovirus/Enterovirus Not Detected (NOT DETECT); Influenza A Not Detected (NOT DETECT); Influenza A H1 Not Detected (NOT DETECT); Influenza A H1-2009 Not Detected (NOT DETECT); Influenza A H3 Not Detected (NOT DETECT); Influenza B Not Detected (NOT DETECT); Mycoplasma Pneumoniae Not Detected (NOT DETECT); Parainfluenza Virus Type 1 Not Detected (NOT DETECT); Parainfluenza Virus Type 2 Not Detected (NOT DETECT); Parainfluenza Virus Type 3 Not Detected (NOT DETECT); Parainfluenza Virus Type 4 Not Detected (NOT DETECT); Respiratory Syncytial Virus A Not Detected (NOT DETECT); Respiratory Syncytial Virus B Not Detected (NOT DETECT); SARS-COV-2 Not Detected (NOT DETECT)
[2022-06-18 06:03] LABS: Estmated Average Glucose 134; Hemoglobin A1C 6.3 % (4.0-6.0)
[2022-06-18 06:42] LABS: Troponin 5 6HR Delta 16.71 ng/L (0-12)
[2022-06-18] MEDS: ipratropium-albuterol 3 mL Neb INHALATION ×2 (07:49→11:22)
[2022-06-18] MEDS: budesonide 0.5 mg/2 mL Neb INHALATION (07:49)
--- NOTE | 2022-06-18 09:41 | PC.PHAR ---
[facility] CON[facility] AMLODIPINE 10MG PO DAILY AND LOSARTAN 25MG PO DAILY - PT STS HE STOPPED TAKING THESE MEDICATIONS BECAUSE THEY MAKE HIM DIZZY.
[2022-06-18] MEDS: aspirin 81 mg EC Tablet PO (09:59)
[2022-06-18] MEDS: clopidogrel 75 mg Tablet PO (10:00)
--- NOTE | 2022-06-18 10:46 | PC.CHAP ---
Pastoral Care Encounter/Spiritual Assessment Type of Contact [] Declined surgical instrument mechanic visit [] Patient/Family/Request visit [] Outpatient visit [] Follow-up visit [] Physician referral [] Code/Alert [x] Routine visit [] Staff referral [] Actively dying [] Patient sleeping [] Family support [] [] Out of room [] Palliative care [] [] Receiving care in room [] Pre-surgical visit [] Trauma [] Long length of stay [] ICU visit [] Other: Relational/Emotional Strength [] Patient feels connected with others/family/visitors/staff [] Distress [] Loneliness/isolation [] Abandonment Spirituality of Patient [x] Person of Mary [] Attends Roman Catholic of their Mary [] Believes in Prayer [] Reads Bible or Scientology materials [] There are Spiritual issues to be addressed Uptwister Tender Interventions [x] Prayer [] Active listening [x] Non-anxious presence [] Spiritual/emotional support [] Crisis/trauma care [] Spiritual counseling [] Bereavement support [] Provided bereavement packet [] Provided Bible/devotional materials [] Provided toy/stuffed animal, coloring book to patient or family member [] Provided Communion [] Anointing/[place] [] Salvation [] Completed spiritual assessment [] Other: Impact on Illness or Injury [] Angry [] Fearful [] Anxious [] Often cries [] Exhaustion [] Unable to work [] Unable to attend denominational [] Unable to walk/stand [] Unable to read [] Unable to drive [] Unable to eat/drink [] Unable to sleep [] Unable to be with family [] Patient intubated [] Other: Summary Time spent with patient 5 min
== END 2022-06-18 15:19 | disposition left against medical advice (07) | DRG 193 ==
LOC: ER 06-18 03:06 → MEDSURG 06-18 03:30
PROVIDERS: Admitting Provider Family Medicine; Emergency Provider Emergency Medicine; PCP Family Medicine; Visit Provider Student in an Organized Health Care Education/Training Program
DX: J18.9 Pneumonia, unspecified organism (principal); I21.4 Non-ST elevation (NSTEMI) myocardial infarction; J96.01 Acute respiratory failure with hypoxia; C34.90 Malignant neoplasm of unspecified part of unspecified bronchus or lung; I50.30 Unspecified diastolic (congestive) heart failure; J43.9 Emphysema, unspecified; K21.9 Gastro-esophageal reflux disease without esophagitis; Z86.73 Personal history of transient ischemic attack (TIA), and cerebral infarction without residual deficits; I11.0 Hypertensive heart disease with heart failure; I25.10 Atherosclerotic heart disease of native coronary artery without angina pectoris; Z95.5 Presence of coronary angioplasty implant and graft; F17.200 Nicotine dependence, unspecified, uncomplicated; E11.9 Type 2 diabetes mellitus without complications; I27.20 Pulmonary hypertension, unspecified; Z86.711 Personal history of pulmonary embolism; I16.0 Hypertensive urgency; Z53.29 Procedure and treatment not carried out because of patient's decision for other reasons
CPT/HCPCS: 36415; 71045; 71275; 80053; 80061; 82803; 83036; 83605; 83880; 84145; 84443; 84484; 85025; 85378; 87040; 87635; 93005; 93306; 93970; 94640; 94664; 96365; 96367; 96372; 96375; 99285; J0456; J0696; J1650; J1940; J2920; J2930; J7050; J7626; Q9967

== ENCOUNTER 2022-11-11 10:16 | Day surgery (SDC) | payer OTHER, SELFPAY ==
[2022-11-10 13:11] VITALS: BMI 22.9
[2022-11-11 11:03] VITALS: BP 143/87; PULSE 59; RESP 18; TEMP 36.7; O2SAT 97
--- NOTE | 2022-11-11 11:27 | W.PM.OPSUD ---
Surgery/Procedure H&P Update DATE OF PROCEDURE: November 11, 2022 DATE H&P PERFORMED: 11/03/22 H&P UPDATE INFORMATION: I have reviewed H&P completed within last 30 days, I have examined patient prior to procedure and No changes to prior documentation PREOP DIAGNOSIS: Squamous cell carcinoma right lung PLANNED PROCEDURE: Operation Date: 11/11/22 12:15 Proposed Procedures p [id number] port placement C34.11(Not Applicable) - Sim Johnson DO
[2022-11-11] MEDS: sodium chloride 0.9% 1,000 ML 30 ML IV (11:45)
--- NOTE | 2022-11-11 12:29 | SC_ITS ---
WS: [id number] C-arm fluoroscopy of the chest for port insertion, 11/11/2022 Clinical Data: Mediport insertion Comparison: None. Findings: There is a left port which is been inserted through the left subclavian vein and ends in the midporti on of the superior vena cava. SC/C-arm FL for CVA [id number] Impression: Insertion of left infusion port.
[2022-11-11] MEDS: ceFAZolin 2,000 MG in sodium chloride 0.9% (plus) 50 ML 100 MG IV (12:58)
[2022-11-11] MEDS: heparin, porcine 1,000 unit/mL INJ 10 mL 10000 UNIT IRRIGATION (13:00)
--- NOTE | 2022-11-11 13:13 | P.ANESASSM_ITS ---
Pre-Anesthetic Assessment Height/Weight: Height 1.88 m Weight 81.193 kg Temp Pulse Resp BP Pulse Ox O2 Del Method 98.0 F 59 L 18 143/87 97 11/11/22 11:03 11/11/22 11:03 11/11/22 11:03 11/11/22 11:03 11/11/22 11:03 11/11/22 11:03 Preop Diagnosis: Squamous cell carcinoma right lung Operation Date: 11/11/22 12:15 Proposed Procedures p [id number] port placement C34.11(Not Applicable) - Sim Johnson DO Familial anesthetic complications: none Was Beta Josy taken within 24 hours: N/A Was Clonidine taken within 24 hours: N/A Last intake: Intake Last Liquid Date 11/10/22 Last Liquid Time 20:00 Last Solid Date 11/10/22 Last Solid Time 17:00 Social No alcohol and No tobacco Exam alert, oriented x 3, clear to auscultation bilaterally and regular rate & rhythm Airway Submandibular: within normal limits Cervical ROM: within normal limits Mallampati: Class II Dentition: chipped Pulmonary Chronic Obstructive Pulmonary Disease Lung CA CV/HEM Coronary Artery Disease and Myocardial Infarction anticoagulated GI Gastroesophageal Reflux Disease Anesthetic Plan ASA status: 3 Anesthesia: Choice Medications/Allergies Home Medications Medication Instructions Recorded Confirmed Last Taken Type aspirin 81 mg tablet,delayed 81 mg PO DAILY 07/21/21 11/11/22 11/10/22 History release clopidogrel 75 mg tablet (Plavix) 75 mg PO DAILY 07/21/21 11/11/22 11/05/22 History multivitamin 1 tab PO EVERY OTHER DAY 07/21/21 11/11/22 11/09/22 History pantoprazole 40 mg tablet,delayed 40 mg PO DAILY 07/21/21 11/11/22 11/10/22 History release acetaminophen 325 mg capsule 325 mg PO QID PRN Pain 06/18/22 11/11/22 11/10/22 History (Tylenol) carboxymethylcellulose sodium 1 % 2 drp ophthalmic (eye) BID 06/18/22 11/11/22 11/09/22 History eye drops (Artificial Tears (carboxymethylcellulose)) omega [id number]-[id number]-fish oil 300 1 cap PO BID 06/18/22 11/11/22 11/10/22 History mg-1,000 mg capsule (Fish Oil) cholecalciferol (vitamin D3) 50 50 mcg PO DAILY 11/03/22 11/11/22 11/10/22 History mcg (2,000 unit) capsule Allergies Allergy/AdvReac Type Severity Reaction Status Date / Time loratadine Allergy Unknown Verified 11/11/22 11:01 rosuvastatin [From Crestor] Allergy Unknown Verified 11/11/22 11:01 simvastatin Allergy Unknown Verified 11/11/22 11:01 [facility] Anesthesia Medical History GERD (gastroesophageal reflux disease) History of aortic aneurysm History of blood clots History of COPD History of CVA (cerebrovascular accident) History of lung cancer Hx of cataract bilateral Hypertension 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 Surgical History History of esophagogastroduodenoscopy (EGD) History of heart artery stent Hx of colonoscopy with polypectomy Family History Other CAD (coronary artery disease) Cancer Clotting disorder Dementia Diabetes Hypertension Lung disease Stroke Denies family history of Hyperlipidemia Psychiatric illness Chronic kidney disease (CKD) Suicide Anesthesia complication Bleeding disorder Social History Smoking and tobacco status: former smoker Quit status (tobacco): has quit using tobacco Year quit tobacco: 2021 Former quit date comment: smoked x 15 service: Yes History of recent travel: No Data Anesthesia Cardiac Studies: Echocardiogram 06/18/22
--- NOTE | 2022-11-11 13:29 | P.OP_ITS ---
Operative Report Date of procedure: November 11, 2022 Pre-op diagnosis: Preop Diagnosis Squamous cell carcinoma right lung Post-op diagnosis: same Procedure done: Mediport insertion Implants: PowerPort Specimens removed/disposition: None Surgeon: Dr. Sim Johnson, DO Anesthesia: MAC Estimated blood loss (mL): 5 Complications: None apparent Brief History: This very pleasant 67-year-old gentleman with squamous cell carcinoma of his right lung. Mediport insertion is appropriate for chemotherapy. The risks and benefits were explained and documented. Procedure: They put another order I will do right now things the patient was taken to the operating room and placed supine on the operating room table. All bony prominences were padded. She was given IV sedation and monitored throughout the case by the anesthesia personnel. SCDs were placed and turned on. The arms were tucked to the side. Patient received Ancef 2 g preoperatively IV. The bilateral chest wall was prepped and draped in usual sterile fashion using chlorhexidine base prep. Sterile drapes were applied. We did procedure pause prior to beginning. An 18 gauge needle was placed in the left subclavian vein. Dark, nonpulsatile blood was aspirated. A guidewire was placed through the needle centrally toward the atrial/vena caval junction. Fluoroscopy visualized good placement. The needle was removed and the guidewire was clipped to the drape with a hemostat. Further local anesthetic was infiltrated in the soft tissues of the left chest wall and a #15 blade was used to make a horizontal skin incision. A subcutaneous Mediport pocket was created using Bovie cautery, dissecting down through the skin and subcutaneous tissues. Meticulous hemostasis was achieved. The Mediport was sutured in position using 3-0 vicryl suture x2 stitches. A #15 blade was used to make a small skin jay jay around the guidewire insertion area. The Mediport tubing was tunneled through the subcutaneous tissues up to the needle insertion location. A dilator with a peel-away sheath was placed over the guidewire and placed centrally. After measuring the Mediport tubing was cut to length so that the tip would end at the atrial/vena caval junction. The inner cannula and the guidewire were removed, leaving the dilator sheath in place. The Mediport was flushed. The tip of the catheter was inserted through the peel-away sheath and the peel-away sheath removed in the standard fashion. The Mediport was accessed with a straight Kraft needle and dark, nonpulsatile blood was aspirated and flushed us ing heparinized saline to hep-lock the Mediport. Final fluoroscopy visualization showed no kink in the catheter and the tip of the Mediport tubing near the atrial/vena caval junction. Both skin incisions were thoroughly irrigated and suctioned dry. Meticulous hemostasis noted. The dermis was approximated with 3-0 Vicryl in an interrupted fashion. Skin was closed with Dermabond. Patient was awakened from anesthesia and transferred via her cart to the recovery room in stable condition. All needle, sponge, and instrument counts were correct per the operating personnel x2 counts.
[2022-11-11 13:36] VITALS: BP 128/72; PULSE 56; RESP 14; TEMP 36.3; O2SAT 95
[2022-11-11 13:47] VITALS: BP 119/70; PULSE 54; RESP 14; TEMP 36.1; O2SAT 94
[2022-11-11 14:17] VITALS: BP 165/85; PULSE 96; RESP 16; TEMP 36.6; O2SAT 96
--- NOTE | 2022-11-11 18:08 | ANE.PACU2 ---
Inpatient post-anesthesia follow up: Airway intact: Yes Vital signs: Temperature 97.9 F Pulse Rate 96 Respiratory Rate 16 Blood Pressure 165/85 Pulse Oximetry 96 Oxygen Delivery Me thod Room Air Oxygen Flow Rate Fraction of Inspir ed Oxygen Hydration adequate: Yes Nausea and vomiting: No Pain level: 2 Mental status: Baseline
== END 2022-11-11 14:25 | disposition home or self-care (01) ==
PROVIDERS: Visit Provider Surgery
PROC: (CPT 36561; principal; 2022-11-11 12:15)
DX: C34.91 Malignant neoplasm of unspecified part of right bronchus or lung (principal); J44.9 Chronic obstructive pulmonary disease, unspecified; I25.10 Atherosclerotic heart disease of native coronary artery without angina pectoris; I25.2 Old myocardial infarction; Z79.01 Long term (current) use of anticoagulants; K21.9 Gastro-esophageal reflux disease without esophagitis; Z79.82 Long term (current) use of aspirin; Z87.891 Personal history of nicotine dependence
CPT/HCPCS: 36561; 76000; 77001; C1788; J0690; J1644; J2704; J3010; J7030

== ENCOUNTER → 2022-11-22 09:30 | Outpatient (BNVA) | payer OTHER, SELFPAY | PROVIDERS: PCP Family Medicine; Visit Provider Nurse Practitioner | DX: C34.11 Malignant neoplasm of upper lobe, right bronchus or lung (principal) | CPT/HCPCS: 99214 ==

== ENCOUNTER 2022-11-23 10:35 | Oncology outpatient (recurring) (ONCR) | payer OTHER, SELFPAY ==
--- NOTE | 2022-11-17 | CT_ITS ---
Radiation Therapy Planning CT images; total exam DLP: 480.40 mGy-cm MTDD
--- NOTE | 2022-11-17 15:13 | N.ONRAD NP_ITS ---
Radiation Oncology New Patient Visit Patient: Randolph Salomon MR#: [id number] : 1955> Age: 67> Sex: Male> Dictated by: Yosef Duron Date of Service: 11/17/2022 Referring Physician(s) : Jak Rodriguez Diagnosis: Lung, right, squamous cell carcinoma, stage T4N2M0, 3B Radiotherapy to date: Summary > 3 treatments at [facility] utilizing VMAT with 1 course of concomitant chemotherapy. Chief Complaint / History of Present Illness: Mr. Salomon is a 67-year-old man who states that he has known of a mass in his right lung for the past 4 to 5 years. However, he does not provide any details of that when questioned. His record indicates that he had a CT of the chest 04/21/2022 that showed a 4 cm right upper lobe mass and possible mild mediastinal lymphadenopathy. Further imaging showed progression and he subsequently underwent endoscopy with the pulmonary mass biopsy showing moderately differentiated squamous cell carcinoma. EBUS revealed suspicious nodes but all biopsies were negative. He has had further imaging including 2 PET scans and an MRI of the chest. The MRI of the chest showed the mass to invade the anterior mediastinum and the anterior pulmonary pleura. Also had a very suspicious precarinal node on the study. His first PET scan revealed questionable mediastinal and bilateral lymphadenopathy. However, he had had pneumonia and the findings were nonspecific. A second PET scan showed uptake in the known primary cancer and a precarinal node, consistent with the findings on MRI of the chest. His case was discussed at [facility] tumor board. Because of the anterior mediastinal invasion and the enlarged 1.3 cm precarinal lymph node, he was not considered a good surgical candidate. It was recommended that he undergo concomitant chemotherapy and radiation. He started that process in [place]. However, he found the bed in the [facility] to be unacceptable. He decided to transfer his care to [place] so that he can live in his own home while undergoing treatment. He is referred for evaluation and the initiation of the treatment planning process. His treatment plan has been transferred electronically. It appears to be a VMAT plan targeting the known primary cancer and a suspicious precarinal lymph node. He has had 3 radiation treatments and 1 course of chemotherapy. Pulmonary function studies were reviewed at the [facility] tumor board and the FEV1 was noted to be 78% and the DLCO 47%, suboptimal but satisfactory for chemo RT, utilizing a conservative RT volume. Current Medications: Medications listed to 823 acetaminophen, 81 mg aspirin, artificial tears, vitamin D3, Plavix, multivitamin, omega-3 fish oil, and pantoprazole. Allergies: Loratadine, Crestor, simvastatin, pneumonia shot according to the patient. Medical History: No history of collagen vascular disease. No previous radiation therapy. Coronary artery disease with 35% ejection fraction stroke with some difficulty ambulating since that event about 5 years ago. He has also had some dizziness for several years. Also a history of hypertension, diabetes, dementia, and clotting disorder. Surgical History: Coronary stent, polypectomy of the colon Family History: Social History: Lives alone with a small dog. Prior [employer] service. 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 Current Complaints / Review of Systems: . He has chronic dizziness and some instability of gait following a stroke 5 years ago. However he does not appear to be a significant fall risk. He has no troublesome pulmonary symptoms such as dyspnea, cough, sputum production, or hemoptysis. Though he has a history of heart disease, he does not admit to having any dyspnea on exertion or chest pain. He feels his nutrition is good. He has lost 15 pounds or so over the past several months but has gained most of that back. No dysphagia. He does have reflux. No change in bowel habits, bleeding, or or unusual constipation. He has a slow urinary stream. No urgency, dysuria, pyuria, hematuria. He has no new bone pain. He has chronic aches in joints that are suggestive of generalized arthritis. Vital Signs: Performed on 11/17/2022 1:02 PM BMI - 22.726 kg/m2, Height - 74 in, Weight - 177 lbs, Temperature - 97.1 f, Pulse - 53 /min (low), Respiration - 18 /min, O2 Sat - 96 %, Pain - 0, Fatigue - 0 and BP - 174/ 84 mm(hg)(high/). Physical Exam: Alert, oriented, no acute distress. He appears healthy. He ambulates slowly due to the sequelae of a previous stroke. No one symmetrical weakness. No cervical or supraclavicular lymphadenopathy. Lungs clear to percussion. On auscultation no rales rhonchi or wheezes. Heart rhythm regular. No murmur, gallop, or rub. Abdomen is without distention. No organomegaly or mass or tenderness. Bowel sounds normal. His musculoskeletal exam reveals no bone tenderness. Performance Status: ECOG 2 Pathology: Moderately differentiated squamous cell carcinoma Lab: Imaging: See HPI Impression: 67-year-old man with squamous cell carcinoma of the right lung. He is a poor candidate for surgical resection based on mediastinal invasion and a very suspicious precarinal lymph node. He had started chemoRT at [facility], receiving 3 radiation treatments and 1 chemotherapy session. He decided to get treatment closer to home and discontinued his treatments in [place]. I reviewed the potential side effects and long-term complications of radiation with Salomon. He acknowledged understanding the discussion and recalled having a similar discussion with Dr. Salazar. He wishes to proceed with treatment planning so that he can continue to continue on with radiation. I have reviewed the treatment plan which appears to treat a conservative volume which includes the known primary cancer and the suspicious precarinal node. I will plan to proceed with a similar plan. Plan: Simulation performed. Signed by: 11/17/2022 3:12:48 PM <<Signature on File>> Time spent with patient: CPT Code: CPT Code:
[2022-11-22 10:05] LABS: Basophils # 0.1 10^3/uL (0.0-0.1); Basophils % 0.9 %; Eosinophils # 0.2 10^3/uL (0.0-0.8); Eosinophils % 2.1 %; Hematocrit 39.8 % (42.0-52.0); Hemoglobin 13.2 g/dL (11.7-16.6); Lymphocytes # 1.6 10^3/uL (0.8-4.8); Lymphocytes % 20.8 %; Mean Corpuscular HGB Conc 33.2 g/dL (30.0-36.0); Mean Corpuscular Hemoglobin 29.1 pg (28.0-34.0); Mean Corpuscular Volume 87.9 fl (80-94); Mean Platelet Volume 10.3 fL (7.4-10.4); Monocytes # 0.5 10^3/uL (0.2-0.9); Neutrophils # 5.33 10^3/uL (1.8-7.7); Neutrophils % 68.7 %; Nucleated Red Blood Cells % 0 %; Platelet Count 262 10^3/cmm (130-400); Red Blood Count 4.53 10^6/uL (4.1-5.3); Red Cell Distribution Width 13.1 % (12.1-15.1); White Blood Count 7.8 10^3/uL (4.0-10.0)
[2022-11-22 10:28] LABS: Alanine Aminotransferase 7 U/L (0-41); Albumin Level 3.5 g/dL (3.5-5.2); Alkaline Phosphatase 107 U/L (40-130); Anion Gap 14.2 (5-19); Aspartate Amino Transferase 9 U/L (0-40); Blood Urea Nitrogen 21 mg/dL (8-23); Carbon Dioxide 24 mmol/L (22-29); Chloride 101 mmol/L (98-107); Globulin 3.5 g/dL (1.3-4.6); Glomerular Filtration Rate 67.2 mL/min (90-130); Glucose 92 mg/dL (65-115); Osmolality Calculated 283 mOsm/kg (285-295); Potassium 4.2 mmol/L (3.5-5.1); Sodium 135 mmol/L (136-145); Total Bilirubin 0.3 mg/dL (0.15-1.2)
[2022-11-22] MEDS: sodium chloride 0.9% 250 ML 100 ML IV (12:26)
[2022-11-22] MEDS: diphenhydrAMINE 50 mg/mL SDV 1mL 25 MG IVP (12:27)
[2022-11-22] MEDS: acetaminophen 325 mg Tablet 650 MG PO (12:27)
[2022-11-22] MEDS: palonosetron 0.25 mg/5 mL SDV IVP (12:28)
[2022-11-22] MEDS: famotidine 20 mg/2 mL INJ IVP (12:28)
[2022-11-22] MEDS: dexamethasone 20 MG in sodium chloride 0.9% 50 ML 188 MG IV (12:46)
[2022-11-22] MEDS: PACLitaxeL 100 MG in sodium chloride 0.9%(non-DEHP) 250 ML 266.67 MG IV (13:12)
[2022-11-22 13:26] VITALS: BP 212/89; PULSE 60; TEMP 37.5; O2SAT 95
[2022-11-22 13:28] VITALS: BP 215/94; PULSE 56; TEMP 37.3
[2022-11-22] MEDS: CARBOplatin 200 MG in sodium chloride 0.9% 500 ML 520 MG IV (14:27)
[2022-11-22 15:49] VITALS: BP 193/83; PULSE 63; TEMP 37.3; O2SAT 97
--- NOTE | 2022-11-23 11:07 | ONCRAD TMN_ITS ---
Radiation Oncology Treatment Management Note Patient Name: Randolph Salomon Date of : 1955 Date of Service: 11/23/2022 Attending Physician: Estevan Agrawal M.D. Randolph Salomon is a 67 year-old white male recently diagnosed with a clinical stage IIIA (T4N0) vs stage IIIB (T4N2) non-small cell lung cancer. A CT angiogram completed on June 20, 2022 described a 3.2 cm x 4.2 cm x 3.6 cm mass in the medial aspect of the right upper-lobe of the lung and a pretracheal lymph node measuring 1.5 cm. A bronchoscopy with endobronchial ultrasound-guided biopsy performed on June 25, 2022 diagnosed a moderately differentiated squamous cell carcinoma from the right upper-lobe mass. Biopsies of lymph node stations 4L, 7, 11, and 12 did not identify lymphoid tissue. A PET scan ordered on July 17, 2022 confirmed hypermetabolic mass with central necrosis in the right upper lobe (SUV 15.1) and hypermetabolic mediastinal and bilateral hilar lymph nodes which were indeterminate. An MRI of the brain did not reveal metastatic disease. He was evaluated by cardiothoracic surgery at [facility] in [place], [place]. A thoracic MRI obtained on August 26, 2022 reported a 4.6 cm x 3 cm right upper-lobe mass that extended pleura involved the anterior mediastinal fat and a 1.3 cm precarinal lymph node. A restaging PET scan completed on October 14, 2022 not show evidence of disease progression nor metastatic disease. He was prescribed concurrent chemoradiotherapy at [facility]. The first cycle of carboplatin and paclitaxel was administered on October 25, 2022 in conjunction with daily radiotherapy (3 fractions). He has been prescribed carboplatin (AUC 2) and paclitaxel (50 mg/m???) weekly during therapy. The patient has received 4 Gy of a prescribed 54 Hernandez with an intensity modulated radiotherapy plan utilizing a step and shoot treatment technique. Upon review of systems, he denied any new pulmonary symptoms. On physical examination, the patient weighed 180 lbs. His temperature was 97.9 ???F and the blood pressure was 163/78 mmHg. The pulse was 57 bpm and his respiratory rate was 16. Oxygen saturation while breathing room air was 95%. Continue thoracic radiotherapy as prescribed. Signed by: Estevan Agrawal 11/23/2022 11:05:33 AM
== END 2022-11-23 23:59 | disposition home or self-care (01) ==
PROVIDERS: Nurse Practitioner; PCP Family Medicine; Visit Provider Radiology Radiation Oncology
DX: Z51.0 Encounter for antineoplastic radiation therapy (principal); C34.01 Malignant neoplasm of right main bronchus; C78.1 Secondary malignant neoplasm of mediastinum; C77.2 Secondary and unspecified malignant neoplasm of intra-abdominal lymph nodes; Z79.899 Other long term (current) drug therapy; Z87.891 Personal history of nicotine dependence
CPT/HCPCS: 77300; 77301; 77334; 77338; 77386; 77470; 80053; 85025; 96360; 96375; 96413; 96417; 99024; 99203; 99204; 99205; J1100; J1200; J2469; J3490; J7040; J7050; J9045; J9267

== ENCOUNTER → 2022-12-13 09:13 | Outpatient (BNVA) | payer OTHER, SELFPAY | PROVIDERS: PCP Family Medicine; Visit Provider Internal Medicine Hematology & Oncology | DX: Z51.0 Encounter for antineoplastic radiation therapy (principal); C34.11 Malignant neoplasm of upper lobe, right bronchus or lung; J43.9 Emphysema, unspecified; R59.0 Localized enlarged lymph nodes; Z79.899 Other long term (current) drug therapy; Z87.891 Personal history of nicotine dependence | CPT/HCPCS: 77014; 77386; 99214 ==

== ENCOUNTER → 2022-12-22 08:57 | Outpatient (BNVA) | payer OTHER, SELFPAY | PROVIDERS: PCP Family Medicine; Visit Provider Internal Medicine Hematology & Oncology | DX: C34.11 Malignant neoplasm of upper lobe, right bronchus or lung (principal) | CPT/HCPCS: 99214 ==

== ENCOUNTER 2022-12-24 09:14 | Oncology outpatient (recurring) (ONCR) | payer OTHER, SELFPAY ==
[2022-11-29 10:39] LABS: Basophils # 0.1 10^3/uL (0.0-0.1); Basophils % 0.9 %; Eosinophils # 0.2 10^3/uL (0.0-0.8); Eosinophils % 3.3 %; Hematocrit 38.6 % (42.0-52.0); Hemoglobin 12.7 g/dL (11.7-16.6); Lymphocytes % 18.5 %; Mean Corpuscular HGB Conc 32.9 g/dL (30.0-36.0); Mean Corpuscular Hemoglobin 28.3 pg (28.0-34.0); Mean Corpuscular Volume 86.2 fl (80-94); Mean Platelet Volume 10.4 fL (7.4-10.4); Monocytes # 0.4 10^3/uL (0.2-0.9); Monocytes % 6.4 %; Neutrophils # 3.84 10^3/uL (1.8-7.7); Neutrophils % 70.4 %; Nucleated Red Blood Cells % 0 %; Platelet Count 269 10^3/cmm (130-400); Red Blood Count 4.48 10^6/uL (4.1-5.3); Red Cell Distribution Width 13.2 % (12.1-15.1); White Blood Count 5.5 10^3/uL (4.0-10.0)
[2022-11-29 10:56] LABS: Alanine Aminotransferase 8 U/L (0-41); Albumin Level 3.5 g/dL (3.5-5.2); Alkaline Phosphatase 97 U/L (40-130); Anion Gap 14.9 (5-19); Aspartate Amino Transferase 10 U/L (0-40); Blood Urea Nitrogen 19 mg/dL (8-23); Calcium 8.8 mg/dL (8.5-10.5); Carbon Dioxide 25 mmol/L (22-29); Chloride 101 mmol/L (98-107); Globulin 3.4 g/dL (1.3-4.6); Glomerular Filtration Rate 67.2 mL/min (90-130); Glucose 83 mg/dL (65-115); Osmolality Calculated 285 mOsm/kg (285-295); Potassium 3.9 mmol/L (3.5-5.1); Sodium 137 mmol/L (136-145); Total Bilirubin 0.4 mg/dL (0.15-1.2); Total Protein 6.9 g/dL (6.6-8.7)
--- NOTE | 2022-11-29 11:15 | ONCRAD TMN_ITS ---
Radiation Oncology Treatment Management Note Patient Name: Randolph Salomon Date of : 1955 Date of Service: 11/29/2022 Attending Physician: Estevan Agrawal M.D. Randolph Salomon is a 67 year-old white male recently diagnosed with a clinical stage IIIA (T4N0) vs stage IIIB (T4N2) non-small cell lung cancer. A CT angiogram completed on June 20, 2022 described a 3.2 cm x 4.2 cm x 3.6 cm mass in the medial aspect of the right upper-lobe of the lung and a pretracheal lymph node measuring 1.5 cm. A bronchoscopy with endobronchial ultrasound-guided biopsy performed on June 25, 2022 diagnosed a moderately differentiated squamous cell carcinoma from the right upper-lobe mass. Biopsies of lymph node stations 4L, 7, 11, and 12 did not identify lymphoid tissue. A PET scan ordered on July 17, 2022 confirmed hypermetabolic mass with central necrosis in the right upper lobe (SUV 15.1) and hypermetabolic mediastinal and bilateral hilar lymph nodes which were indeterminate. An MRI of the brain did not reveal metastatic disease. He was evaluated by cardiothoracic surgery at [facility] in [place], [place]. A thoracic MRI obtained on August 26, 2022 reported a 4.6 cm x 3 cm right upper-lobe mass that extended pleura involved the anterior mediastinal fat and a 1.3 cm precarinal lymph node. A restaging PET scan completed on October 14, 2022 not show evidence of disease progression nor metastatic disease. He was prescribed concurrent chemoradiotherapy at [facility]. The first cycle of carboplatin and paclitaxel was administered on October 25, 2022 in conjunction with daily radiotherapy (3 fractions). He has been prescribed carboplatin (AUC 2) and paclitaxel (50 mg/m???) weekly during therapy. The patient has received 12 Gy of a prescribed 54 Hernandez with an intensity modulated radiotherapy plan utilizing a step and shoot treatment technique. Upon review of systems, he denied any new pulmonary symptoms. On physical examination, the patient weighed 176 lbs. His temperature was 98 ???F and the blood pressure was 139/82 mmHg. The pulse was 62 bpm and his respiratory rate was 16. Oxygen saturation while breathing room air was 95%. Intermittent rales were present upon auscultation. Continue thoracic radiotherapy as planned. Signed by: Estevan Agrawal 11/29/2022 11:14:32 AM
[2022-11-29] MEDS: acetaminophen 325 mg Tablet PO (11:24)
[2022-11-29] MEDS: sodium chloride 0.9% 250 ML 75 ML IV (12:24)
[2022-11-29] MEDS: palonosetron 0.25 mg/5 mL SDV IVP (12:25)
[2022-11-29] MEDS: diphenhydrAMINE 50 mg/mL SDV 1mL 25 MG IVP (12:29)
[2022-11-29] MEDS: famotidine 20 mg/2 mL INJ IVP (12:31)
[2022-11-29] MEDS: dexamethasone 20 MG in sodium chloride 0.9% 50 ML 188 MG IV (12:32)
--- NOTE | 2022-11-29 12:41 | PC.PHAR ---
PATIENT REQUESTED ONLY 325MG OF TYLENOL TODAY. UPDATED THE ORDER PER TELEPHONE ORDER CHANNING.
[2022-11-29] MEDS: PACLitaxeL 100 MG in sodium chloride 0.9%(non-DEHP) 250 ML 266.67 MG IV (12:54)
[2022-11-29] MEDS: CARBOplatin 200 MG in sodium chloride 0.9% 500 ML 520 MG IV (13:56)
[2022-11-29 15:08] VITALS: BP 167/78; PULSE 59; RESP 16; TEMP 37.3; O2SAT 94
[2022-12-06 10:25] LABS: Basophils # 0.1 10^3/uL (0.0-0.1); Eosinophils # 0.1 10^3/uL (0.0-0.8); Eosinophils % 2.4 %; Hematocrit 37.4 % (42.0-52.0); Hemoglobin 12.3 g/dL (11.7-16.6); Lymphocytes # 0.8 10^3/uL (0.8-4.8); Lymphocytes % 16.6 %; Mean Corpuscular HGB Conc 32.9 g/dL (30.0-36.0); Mean Corpuscular Hemoglobin 28.8 pg (28.0-34.0); Mean Corpuscular Volume 87.6 fl (80-94); Mean Platelet Volume 10.1 fL (7.4-10.4); Monocytes # 0.4 10^3/uL (0.2-0.9); Neutrophils # 3.62 10^3/uL (1.8-7.7); Neutrophils % 72.6 %; Nucleated Red Blood Cells % 0 %; Platelet Count 311 10^3/cmm (130-400); Red Blood Count 4.27 10^6/uL (4.1-5.3); Red Cell Distribution Width 14.3 % (12.1-15.1)
[2022-12-06 10:49] LABS: Alanine Aminotransferase 8 U/L (0-41); Albumin Level 3.5 g/dL (3.5-5.2); Alkaline Phosphatase 96 U/L (40-130); Anion Gap 16.3 (5-19); Aspartate Amino Transferase 9 U/L (0-40); Blood Urea Nitrogen 18 mg/dL (8-23); Calcium 8.6 mg/dL (8.5-10.5); Carbon Dioxide 23 mmol/L (22-29); Chloride 103 mmol/L (98-107); Globulin 3.3 g/dL (1.3-4.6); Glucose 86 mg/dL (65-115); Osmolality Calculated 287 mOsm/kg (285-295); Potassium 4.3 mmol/L (3.5-5.1); Sodium 138 mmol/L (136-145); Total Bilirubin 0.4 mg/dL (0.15-1.2); Total Protein 6.8 g/dL (6.6-8.7)
[2022-12-06] MEDS: sodium chloride 0.9% 250 ML 75 ML IV (12:14)
[2022-12-06] MEDS: acetaminophen 325 mg Tablet 650 MG PO (12:15)
[2022-12-06] MEDS: palonosetron 0.25 mg/5 mL SDV IVP (12:18)
[2022-12-06] MEDS: famotidine 20 mg/2 mL INJ IVP (12:19)
[2022-12-06] MEDS: diphenhydrAMINE 50 mg/mL SDV 1mL 25 MG IVP (12:20)
[2022-12-06] MEDS: dexamethasone 20 MG in sodium chloride 0.9% 50 ML 188 MG IV (12:26)
[2022-12-06] MEDS: PACLitaxeL 100 MG in sodium chloride 0.9%(non-DEHP) 250 ML 266.67 MG IV (12:53)
[2022-12-06] MEDS: CARBOplatin 220 MG in sodium chloride 0.9% 500 ML 522 MG IV (13:53)
[2022-12-06 15:00] VITALS: BP 143/87; PULSE 76; RESP 16; TEMP 36.7; O2SAT 98
--- NOTE | 2022-12-07 11:16 | ONCRAD TMN_ITS ---
Radiation Oncology Weekly Treatment Management Patient: Aime Dickson> MR#: [id number] : 1955> Attending Physician: Donnie Wu DO Date of Service: 12/07/2022 Referring Physician(s) : Jak Rodriguez Diagnosis: Radiotherapy to date: Course: SCL Lung Ca R, Treatment Site: SCL Lung Ca R, Ref. ID: [id number], Energy: 6X, Dose/Fx (cGy): 200, #Fx: , Dose Correction (cGy): 0, Total Dose (cGy): 2,400, Start Date: 11/22/2022, Elapsed Days: 15 Reason for visit: The patient is being seen today as part of their regularly scheduled weekly on treatment visits to assess for acute toxicities from radiotherapy. Review of Systems: Patient denies hemoptysis, productive cough, or sputum. He reports he has no difficulty swallowing and is eating well. He denies excessive fatigue. Vital Signs: Performed on 12/07/2022 10:22 AM BMI - 23.239 kg/m2 (high), Height - 74 in, Weight - 181 lbs, Temperature - 98.1 f, Pulse - 69 /min, Respiration - 18 /min, O2 Sat - 95 % (low), Pain - 5, Fatigue - 2 and BP - 152/ 86 mm(hg)(high/). Physical Exam: Patient is alert and oriented male appearing his stated age. Speech intact. Skin in the treatment area is intact without erythema or desquamation. Lungs clear to auscultation bilaterally. Patient ambulatory without assistance. Imaging: Radiation therapy imaging related to accurate target localization (i.e. KV, MV and CBCT) was reviewed. Appropriate changes, if any, were made to ensure treatment accuracy. Plan: Continue prescribed radiation therapy to the thorax for treatment of his lung carcinoma. Signed by: Donnie Wu DO 12/07/2022 11:15:30 AM
--- NOTE | 2022-12-13 10:02 | ONCRAD TMN_ITS ---
Radiation Oncology Treatment Management Note Patient Name: Randolph Salomon Date of : 1955 Date of Service: 12/13/2022 Attending Physician: Estevan Agrawal M.D. Randolph Salomon is a 67 year-old white male recently diagnosed with a clinical stage IIIA (T4N0) vs stage IIIB (T4N2) non-small cell lung cancer. A CT angiogram completed on June 20, 2022 described a 3.2 cm x 4.2 cm x 3.6 cm mass in the medial aspect of the right upper-lobe of the lung and a pretracheal lymph node measuring 1.5 cm. A bronchoscopy with endobronchial ultrasound-guided biopsy performed on June 25, 2022 diagnosed a moderately differentiated squamous cell carcinoma from the right upper-lobe mass. Biopsies of lymph node stations 4L, 7, 11, and 12 did not identify lymphoid tissue. A PET scan ordered on July 17, 2022 confirmed hypermetabolic mass with central necrosis in the right upper lobe (SUV 15.1) and hypermetabolic mediastinal and bilateral hilar lymph nodes which were indeterminate. An MRI of the brain did not reveal metastatic disease. He was evaluated by cardiothoracic surgery at [facility] in [place], [place]. A thoracic MRI obtained on August 26, 2022 reported a 4.6 cm x 3 cm right upper-lobe mass that extended pleura involved the anterior mediastinal fat and a 1.3 cm precarinal lymph node. A restaging PET scan completed on October 14, 2022 not show evidence of disease progression nor metastatic disease. He was prescribed concurrent chemoradiotherapy at [facility]. The first cycle of carboplatin and paclitaxel was administered on October 25, 2022 in conjunction with daily radiotherapy (3 fractions). He has been prescribed carboplatin (AUC 2) and paclitaxel (50 mg/m???) weekly during therapy. The patient has received 30 Gy of a prescribed 54 Hernandez with an intensity modulated radiotherapy plan utilizing a step and shoot treatment technique. Upon review of systems, he denied any new pulmonary symptoms. On physical examination, the patient weighed 179 lbs. His temperature was 97.9 ???F and the blood pressure was 166/82 mmHg. The pulse was 70 bpm and his respiratory rate was 18. Oxygen saturation while breathing room air was 97%. rales were present upon auscultation. Continue thoracic radiotherapy as prescribed. Signed by: Estevan Agrawal 12/13/2022 10:00:57 AM
[2022-12-13 10:06] LABS: Basophils # 0.1 10^3/uL (0.0-0.1); Basophils % 1.4 %; Eosinophils # 0.1 10^3/uL (0.0-0.8); Eosinophils % 1.2 %; Hematocrit 35.8 % (42.0-52.0); Hemoglobin 11.9 g/dL (11.7-16.6); Lymphocytes # 0.8 10^3/uL (0.8-4.8); Lymphocytes % 15.1 %; Mean Corpuscular HGB Conc 33.2 g/dL (30.0-36.0); Mean Corpuscular Volume 87.1 fl (80-94); Mean Platelet Volume 10.4 fL (7.4-10.4); Monocytes # 0.5 10^3/uL (0.2-0.9); Monocytes % 9.7 %; Neutrophils # 3.64 10^3/uL (1.8-7.7); Neutrophils % 72.2 %; Nucleated Red Blood Cells % 0 %; Platelet Count 288 10^3/cmm (130-400); Red Blood Count 4.11 10^6/uL (4.1-5.3)
[2022-12-13 10:25] LABS: Alanine Aminotransferase 10 U/L (0-41); Albumin Level 3.5 g/dL (3.5-5.2); Alkaline Phosphatase 72 U/L (40-130); Anion Gap 13.3 (5-19); Aspartate Amino Transferase 10 U/L (0-40); Blood Urea Nitrogen 16 mg/dL (8-23); Calcium 8.6 mg/dL (8.5-10.5); Carbon Dioxide 24 mmol/L (22-29); Chloride 108 mmol/L (98-107); Globulin 3.3 g/dL (1.3-4.6); Glucose 86 mg/dL (65-115); Osmolality Calculated 292 mOsm/kg (285-295); Potassium 4.3 mmol/L (3.5-5.1); Sodium 141 mmol/L (136-145); Total Bilirubin 0.4 mg/dL (0.15-1.2); Total Protein 6.8 g/dL (6.6-8.7)
[2022-12-13] MEDS: sodium chloride 0.9% 250 ML 75 ML IV (11:41)
[2022-12-13] MEDS: acetaminophen 325 mg Tablet 650 MG PO (11:42)
[2022-12-13] MEDS: palonosetron 0.25 mg/5 mL SDV IVP (11:43)
[2022-12-13] MEDS: famotidine 20 mg/2 mL INJ IVP (11:44)
[2022-12-13] MEDS: diphenhydrAMINE 50 mg/mL SDV 1mL 25 MG IVP (11:48)
[2022-12-13] MEDS: dexamethasone 20 MG in sodium chloride 0.9% 50 ML 188 MG IV (11:50)
[2022-12-13] MEDS: PACLitaxeL 100 MG in sodium chloride 0.9%(non-DEHP) 250 ML 266.67 MG IV (12:20)
[2022-12-13] MEDS: loperamide 2 mg Capsule PO (12:26)
[2022-12-13] MEDS: CARBOplatin 220 MG in sodium chloride 0.9% 500 ML 522 MG IV (13:22)
[2022-12-13 14:37] VITALS: BP 169/81; PULSE 59; RESP 16; TEMP 36.9; O2SAT 92
--- NOTE | 2022-12-20 10:15 | ONCRAD TMN_ITS ---
Radiation Oncology Treatment Management Note Patient Name: Randolph Salomon Date of : 1955 Date of Service: 12/20/2022 Attending Physician: Estevan Agrawal M.D. Randolph Salomon is a 67 year-old white male recently diagnosed with a clinical stage IIIA (T4N0) vs stage IIIB (T4N2) non-small cell lung cancer. A CT angiogram completed on June 20, 2022 described a 3.2 cm x 4.2 cm x 3.6 cm mass in the medial aspect of the right upper-lobe of the lung and a pretracheal lymph node measuring 1.5 cm. A bronchoscopy with endobronchial ultrasound-guided biopsy performed on June 25, 2022 diagnosed a moderately differentiated squamous cell carcinoma from the right upper-lobe mass. Biopsies of lymph node stations 4L, 7, 11, and 12 did not identify lymphoid tissue. A PET scan ordered on July 17, 2022 confirmed hypermetabolic mass with central necrosis in the right upper lobe (SUV 15.1) and hypermetabolic mediastinal and bilateral hilar lymph nodes which were indeterminate. An MRI of the brain did not reveal metastatic disease. He was evaluated by cardiothoracic surgery at [facility] in [place], [place]. A thoracic MRI obtained on August 26, 2022 reported a 4.6 cm x 3 cm right upper-lobe mass that extended pleura involved the anterior mediastinal fat and a 1.3 cm precarinal lymph node. A restaging PET scan completed on October 14, 2022 not show evidence of disease progression nor metastatic disease. He was prescribed concurrent chemoradiotherapy at [facility]. The first cycle of carboplatin and paclitaxel was administered on October 25, 2022 in conjunction with daily radiotherapy (3 fractions). He has been prescribed carboplatin (AUC 2) and paclitaxel (50 mg/m???) weekly during therapy. The patient has received 40 Gy of a prescribed 54 Hernandez with an intensity modulated radiotherapy plan utilizing a step and shoot treatment technique. Upon review of systems, he denied any new pulmonary symptoms. On physical examination, the patient weighed 180 lbs. His temperature was 98.4 ???F and the blood pressure was 141/78 mmHg. The pulse was 63 bpm and his respiratory rate was 18. Oxygen saturation while breathing room air was 97%. Course breath sounds were auscultated. Continue thoracic radiotherapy as planned. Signed by: Estevan Agrawal 12/20/2022 10:13:52 AM
[2022-12-22 10:00] LABS: Basophils % 0.9 %; Eosinophils % 0.7 %; Hematocrit 33.2 % (42.0-52.0); Hemoglobin 11.1 g/dL (11.7-16.6); Lymphocytes # 0.5 10^3/uL (0.8-4.8); Lymphocytes % 11.9 %; Mean Corpuscular HGB Conc 33.4 g/dL (30.0-36.0); Mean Corpuscular Hemoglobin 29.1 pg (28.0-34.0); Mean Corpuscular Volume 87.1 fl (80-94); Mean Platelet Volume 9.7 fL (7.4-10.4); Monocytes # 0.5 10^3/uL (0.2-0.9); Monocytes % 10.3 %; Neutrophils # 3.28 10^3/uL (1.8-7.7); Neutrophils % 75.3 %; Nucleated Red Blood Cells % 0 %; Platelet Count 191 10^3/cmm (130-400); Red Blood Count 3.81 10^6/uL (4.1-5.3); Red Cell Distribution Width 16.3 % (12.1-15.1); White Blood Count 4.4 10^3/uL (4.0-10.0)
[2022-12-22 10:15] LABS: Alanine Aminotransferase 9 U/L (0-41); Albumin Level 3.6 g/dL (3.5-5.2); Alkaline Phosphatase 83 U/L (40-130); Aspartate Amino Transferase 9 U/L (0-40); Blood Urea Nitrogen 17 mg/dL (8-23); Calcium 8.4 mg/dL (8.5-10.5); Carbon Dioxide 24 mmol/L (22-29); Chloride 99 mmol/L (98-107); Globulin 3.1 g/dL (1.3-4.6); Glucose 99 mg/dL (65-115); Osmolality Calculated 280 mOsm/kg (285-295); Sodium 134 mmol/L (136-145); Total Bilirubin 0.3 mg/dL (0.15-1.2); Total Protein 6.7 g/dL (6.6-8.7)
[2022-12-22] MEDS: sodium chloride 0.9% 250 ML 75 ML IV (12:00)
[2022-12-22] MEDS: acetaminophen 325 mg Tablet 650 MG PO (12:03)
[2022-12-22] MEDS: famotidine 20 mg/2 mL INJ IVP (12:04)
[2022-12-22] MEDS: diphenhydrAMINE 50 mg/mL SDV 1mL 25 MG IVP (12:06)
[2022-12-22] MEDS: palonosetron 0.25 mg/5 mL SDV IVP (12:12)
[2022-12-22] MEDS: dexamethasone 20 MG in sodium chloride 0.9% 50 ML 188 MG IV (12:13)
[2022-12-22] MEDS: PACLitaxeL 100 MG in sodium chloride 0.9%(non-DEHP) 250 ML 266.67 MG IV (12:38)
[2022-12-22] MEDS: CARBOplatin 220 MG in sodium chloride 0.9% 500 ML 522 MG IV (13:42)
[2022-12-22 15:20] VITALS: BP 112/78; BP 149/81; PULSE 67; PULSE 78; RESP 18; TEMP 36.4; TEMP 36.8; O2SAT 94; O2SAT 98
== END 2022-12-24 23:59 | disposition home or self-care (01) ==
PROVIDERS: Internal Medicine Hematology & Oncology; Nurse Practitioner; PCP Family Medicine; Visit Provider Radiology Radiation Oncology
DX: Z51.0 Encounter for antineoplastic radiation therapy (principal); C34.11 Malignant neoplasm of upper lobe, right bronchus or lung; J43.9 Emphysema, unspecified; Z79.899 Other long term (current) drug therapy; Z87.891 Personal history of nicotine dependence
CPT/HCPCS: 77014; 77336; 77386; 80053; 85025; 96361; 96367; 96375; 96413; 96417; 99024; 99213; 99214; J1100; J1200; J2469; J3490; J7040; J7050; J9045; J9267

== ENCOUNTER 2022-12-29 08:25 | Oncology outpatient (recurring) (ONCR) | payer OTHER, SELFPAY ==
--- NOTE | 2022-12-27 10:02 | ONCRAD TMN_ITS ---
Radiation Oncology Treatment Management Note Patient Name: Randolph Salomon Date of : 1955 Date of Service: 12/27/2022 Attending Physician: Estevan Agrawal M.D. Randolph Salomon is a 67 year-old white male recently diagnosed with a clinical stage IIIA (T4N0) vs stage IIIB (T4N2) non-small cell lung cancer. A CT angiogram completed on June 20, 2022 described a 3.2 cm x 4.2 cm x 3.6 cm mass in the medial aspect of the right upper-lobe of the lung and a pre-tracheal lymph node measuring 1.5 cm. A bronchoscopy with endobronchial ultrasound-guided biopsy performed on June 25, 2022 diagnosed a moderately differentiated squamous cell carcinoma from the right upper-lobe mass. Biopsies of lymph node stations 4L, 7, 11, and 12 did not identify lymphoid tissue. A PET scan ordered on July 17, 2022 confirmed hypermetabolic mass with central necrosis in the right upper lobe (SUV 15.1) and hypermetabolic mediastinal and bilateral hilar lymph nodes which were indeterminate. An MRI of the brain did not reveal metastatic disease. He was evaluated by cardiothoracic surgery at [facility] in [place], [place]. A thoracic MRI obtained on August 26, 2022 reported a 4.6 cm x 3 cm right upper-lobe mass that extended pleura involved the anterior mediastinal fat and a 1.3 cm precarinal lymph node. A restaging PET scan completed on October 14, 2022 not show evidence of disease progression nor metastatic disease. He was prescribed concurrent chemoradiotherapy at [facility]. The first cycle of carboplatin and paclitaxel was administered on October 25, 2022 in conjunction with daily radiotherapy (3 fractions). He has been prescribed carboplatin (AUC 2) and paclitaxel (50 mg/m???) weekly during therapy. The patient has received 50 Gy of a prescribed 54 Hernandez with an intensity modulated radiotherapy plan utilizing a step and shoot treatment technique. Upon review of systems, he denied any new pulmonary symptoms. On physical examination, the patient weighed 177 lbs. His temperature was 97.2 ???F and the blood pressure was 128/90 mmHg. The pulse was 66 bpm and his respiratory rate was 16. Oxygen saturation while breathing room air was 96%. Continue thoracic radiotherapy as planned. Signed by: Estevan Agrawal 12/27/2022 10:00:57 AM
[2022-12-29 08:34] VITALS: BP 148/86; PULSE 71; RESP 16; TEMP 37.1; O2SAT 96
[2022-12-29 08:52] LABS: Basophils # 0.1 10^3/uL (0.0-0.1); Basophils % 1.5 %; Eosinophils # 0.1 10^3/uL (0.0-0.8); Eosinophils % 2.4 %; Hematocrit 34.6 % (42.0-52.0); Hemoglobin 11.7 g/dL (11.7-16.6); Lymphocytes # 0.6 10^3/uL (0.8-4.8); Mean Corpuscular HGB Conc 33.8 g/dL (30.0-36.0); Mean Corpuscular Hemoglobin 29.6 pg (28.0-34.0); Mean Corpuscular Volume 87.6 fl (80-94); Mean Platelet Volume 9.9 fL (7.4-10.4); Monocytes # 0.2 10^3/uL (0.2-0.9); Neutrophils # 2.35 10^3/uL (1.8-7.7); Neutrophils % 70.8 %; Nucleated Red Blood Cells % 0 %; Platelet Count 206 10^3/cmm (130-400); Red Blood Count 3.95 10^6/uL (4.1-5.3); Red Cell Distribution Width 17.4 % (12.1-15.1); White Blood Count 3.3 10^3/uL (4.0-10.0)
[2022-12-29 09:13] LABS: Alanine Aminotransferase 12 U/L (0-41); Albumin Level 3.7 g/dL (3.5-5.2); Alkaline Phosphatase 79 U/L (40-130); Anion Gap 13.2 (5-19); Aspartate Amino Transferase 12 U/L (0-40); Blood Urea Nitrogen 14 mg/dL (8-23); Calcium 8.8 mg/dL (8.5-10.5); Carbon Dioxide 25 mmol/L (22-29); Chloride 103 mmol/L (98-107); Globulin 3.5 g/dL (1.3-4.6); Glomerular Filtration Rate 67.2 mL/min (90-130); Glucose 98 mg/dL (65-115); Osmolality Calculated 284 mOsm/kg (285-295); Potassium 4.2 mmol/L (3.5-5.1); Sodium 137 mmol/L (136-145); Total Bilirubin 0.6 mg/dL (0.15-1.2); Total Protein 7.2 g/dL (6.6-8.7)
== END 2023-01-23 23:59 | disposition home or self-care (01) ==
PROVIDERS: Internal Medicine Hematology & Oncology; PCP Family Medicine; Visit Provider Radiology Radiation Oncology
DX: C34.11 Malignant neoplasm of upper lobe, right bronchus or lung (principal); J43.9 Emphysema, unspecified; Z79.899 Other long term (current) drug therapy; Z51.0 Encounter for antineoplastic radiation therapy; Z87.891 Personal history of nicotine dependence; Z51.11 Encounter for antineoplastic chemotherapy
CPT/HCPCS: 77336; 77386; 80053; 85025; 99024; 99214

== ENCOUNTER 2023-01-20 08:24 | Outpatient (CLI) | payer OTHER, SELFPAY ==
--- NOTE | 2023-01-20 08:00 | CT_ITS ---
WS: [id number] CT chest w con* [id number] HISTORY: post chemo/radiation, lung cancer. TECHNIQUE: Axial imaging performed through the thorax. Coronal and sagittal reformats are submitted. All CT scans at [facility] use at least one of these dose optimization techniques: automated exposure control; mA and/or kV adjustment per patient size (includes targeted exams where dose is mat ched to clinical indication); or iterative reconstruction. CONTRAST: Omnipaque 350; 100 mL IV. DLP: 302.39 mGy.cm COMPARISON: PET/CT 10/13/2022, prior chest CT 06/20/2022 Lungs and central airway: Marked centrilobular emphysema. Additional component of paraseptal emphysem a. Neoplastic mass in the medial RIGHT upper lobe extending along the fissure has nearly completely r esolved. Mass measures 2.3 x 1.3 cm and is less masslike and more scarlike in formation. No new or ad ditional nodules. Pleura: Normal. No pleural effusion. Heart and pericardium: Normal size heart. LEFT ventricular hypertrophy. Severe [place] coronary athero sclerotic disease. Mediastinum and lina: Decrease in size of the mediastinal and hilar lymph nodes. Precarinal lymph nod e that was described as FDG-positive has decreased in size now measuring less than 1 cm in diameter. No new lymph nodes. Vessels: Extensive atherosclerotic plaque within the aorta. Calcified plaque with intimal thickening. Normal size pulmonary artery. Chest wall and lower neck: LEFT subclavian Port-A-Cath. Upper abdomen: Extensive atherosclerotic plaque and intimal thickening continues into the suprarenal aorta. Heavy calcification in the mesenteric arteries. Partially visualized abdominal aortic stent gr aft. No adrenal mass. No liver lesions. Osseous structures: Increase in thoracic kyphosis. CT/CT chest w con* [id number] IMPRESSION: 1. Significant decrease in size of the medial RIGHT upper lobe neoplasm. There is residual scarlike tissue now present measuring 2.3 x 1.3 cm. Recommend cont inued serial follow-up to ensure stability. 2. Decrease in size of the precarinal lymph node. Lymph node now measures less than a centimeter. 3. No adrenal adenopathy. 4. Severe atherosclerotic disease within the aorta, great vessels and coronary arteries. 5. Chronic emphysema.
[2023-01-20] MEDS: iohexol 350 mg/mL 500 mL Btl (per mL) IV (08:51)
== END 2023-01-20 08:25 | disposition home or self-care (01) ==
PROVIDERS: PCP Family Medicine; Visit Provider Nurse Practitioner Family
DX: C34.11 Malignant neoplasm of upper lobe, right bronchus or lung (principal); I25.10 Atherosclerotic heart disease of native coronary artery without angina pectoris; J43.9 Emphysema, unspecified
CPT/HCPCS: 71260; Q9967

== ENCOUNTER 2023-02-17 08:00 | Oncology outpatient (recurring) (ONCR) | payer OTHER, SELFPAY ==
[2023-01-26 13:47] LABS: Basophils # 0.1 10^3/uL (0.0-0.1); Basophils % 1.1 %; Eosinophils # 0.2 10^3/uL (0.0-0.8); Eosinophils % 2.9 %; Hemoglobin 12.4 g/dL (11.7-16.6); Lymphocytes % 14.6 %; Mean Corpuscular HGB Conc 33.5 g/dL (30.0-36.0); Mean Corpuscular Hemoglobin 30.4 pg (28.0-34.0); Mean Corpuscular Volume 90.7 fl (80-94); Mean Platelet Volume 9.6 fL (7.4-10.4); Monocytes # 0.6 10^3/uL (0.2-0.9); Monocytes % 8.9 %; Neutrophils # 4.69 10^3/uL (1.8-7.7); Neutrophils % 71.9 %; Nucleated Red Blood Cells % 0 %; Platelet Count 330 10^3/cmm (130-400); Red Blood Count 4.08 10^6/uL (4.1-5.3); Red Cell Distribution Width 19.2 % (12.1-15.1); White Blood Count 6.5 10^3/uL (4.0-10.0)
[2023-01-26 14:08] LABS: Alanine Aminotransferase 9 U/L (0-41); Albumin Level 3.7 g/dL (3.5-5.2); Alkaline Phosphatase 96 U/L (40-130); Blood Urea Nitrogen 15 mg/dL (8-23); Calcium 8.7 mg/dL (8.5-10.5); Carbon Dioxide 23 mmol/L (22-29); Chloride 103 mmol/L (98-107); Globulin 3.3 g/dL (1.3-4.6); Glomerular Filtration Rate 67.2 mL/min (90-130); Glucose 111 mg/dL (65-115); Osmolality Calculated 286 mOsm/kg (285-295); Sodium 137 mmol/L (136-145); Total Bilirubin 0.2 mg/dL (0.15-1.2)
[2023-01-26 14:13] LABS: Anion Gap 14.8 (5-19); Aspartate Amino Transferase 12 U/L (0-40); Potassium 3.8 mmol/L (3.5-5.1)
[2023-02-01 09:48] VITALS: BMI 22.6
[2023-02-01 10:00] VITALS: BP 169/76; PULSE 62; RESP 18; TEMP 36.4; O2SAT 96
[2023-02-01] MEDS: sodium chloride 0.9% 250 ML 75 ML IV (11:52)
[2023-02-01 13:16] VITALS: BP 144/87; PULSE 18; RESP 64; TEMP 529.4; TEMP 985; O2SAT 96
[2023-02-17 10:25] VITALS: BP 117/67; PULSE 67; RESP 18; TEMP 36.1; O2SAT 99
[2023-02-17 10:38] LABS: Basophils # 0.1 10^3/uL (0.0-0.1); Basophils % 1.1 %; Eosinophils # 0.3 10^3/uL (0.0-0.8); Eosinophils % 3.7 %; Hematocrit 38.1 % (42.0-52.0); Hemoglobin 12.7 g/dL (11.7-16.6); Lymphocytes % 14.5 %; Mean Corpuscular HGB Conc 33.3 g/dL (30.0-36.0); Mean Corpuscular Hemoglobin 30.8 pg (28.0-34.0); Mean Corpuscular Volume 92.5 fl (80-94); Mean Platelet Volume 10.2 fL (7.4-10.4); Monocytes # 0.7 10^3/uL (0.2-0.9); Monocytes % 9.7 %; Neutrophils # 4.98 10^3/uL (1.8-7.7); Neutrophils % 70.7 %; Nucleated Red Blood Cells % 0 %; Platelet Count 263 10^3/cmm (130-400); Red Blood Count 4.12 10^6/uL (4.1-5.3); Red Cell Distribution Width 16.2 % (12.1-15.1)
[2023-02-17 11:12] LABS: Alanine Aminotransferase 8 U/L (0-41); Albumin Level 3.7 g/dL (3.5-5.2); Alkaline Phosphatase 87 U/L (40-130); Anion Gap 13.2 (5-19); Aspartate Amino Transferase 11 U/L (0-40); Blood Urea Nitrogen 18 mg/dL (8-23); Calcium 9.2 mg/dL (8.5-10.5); Carbon Dioxide 25 mmol/L (22-29); Chloride 103 mmol/L (98-107); Creatinine Clr Calc Pharmacy 70.8469; Globulin 3.3 g/dL (1.3-4.6); Glomerular Filtration Rate 60.8 mL/min (90-130); Glucose 93 mg/dL (65-115); Osmolality Calculated 286 mOsm/kg (285-295); Potassium 4.2 mmol/L (3.5-5.1); Sodium 137 mmol/L (136-145); Total Bilirubin 0.3 mg/dL (0.15-1.2)
[2023-02-17 12:40] VITALS: BP 133/75; PULSE 66; RESP 18; TEMP 36.6; O2SAT 98
== END 2023-02-17 23:59 | disposition home or self-care (01) ==
PROVIDERS: PCP Family Medicine; Visit Provider Internal Medicine Hematology & Oncology
DX: Z51.11 Encounter for antineoplastic chemotherapy; C34.11 Malignant neoplasm of upper lobe, right bronchus or lung; J43.9 Emphysema, unspecified; Z79.899 Other long term (current) drug therapy; C77.8 Secondary and unspecified malignant neoplasm of lymph nodes of multiple regions; F17.210 Nicotine dependence, cigarettes, uncomplicated; I25.10 Atherosclerotic heart disease of native coronary artery without angina pectoris; R19.7 Diarrhea, unspecified
CPT/HCPCS: 80053; 84443; 85025; 96413; 99214; J1642; J7050; J9173

== ENCOUNTER 2023-03-17 10:00 | Oncology outpatient (recurring) (ONCR) | payer OTHER, SELFPAY ==
[2023-03-03 08:04] VITALS: BP 160/73; PULSE 58; RESP 16; TEMP 36.5; O2SAT 95; BMI 22.6
[2023-03-03 08:18] LABS: Basophils # 0.1 10^3/uL (0.0-0.1); Basophils % 0.9 %; Eosinophils # 0.2 10^3/uL (0.0-0.8); Eosinophils % 3.1 %; Hematocrit 39.1 % (42.0-52.0); Hemoglobin 12.8 g/dL (11.7-16.6); Lymphocytes % 14.9 %; Mean Corpuscular HGB Conc 32.7 g/dL (30.0-36.0); Mean Corpuscular Hemoglobin 30.6 pg (28.0-34.0); Mean Corpuscular Volume 93.5 fl (80-94); Mean Platelet Volume 9.8 fL (7.4-10.4); Monocytes # 0.6 10^3/uL (0.2-0.9); Monocytes % 8.6 %; Neutrophils # 4.68 10^3/uL (1.8-7.7); Neutrophils % 71.9 %; Nucleated Red Blood Cells % 0 %; Platelet Count 262 10^3/cmm (130-400); Red Blood Count 4.18 10^6/uL (4.1-5.3); Red Cell Distribution Width 14.5 % (12.1-15.1); White Blood Count 6.5 10^3/uL (4.0-10.0)
[2023-03-03 08:54] LABS: Alanine Aminotransferase 11 U/L (0-41); Albumin Level 3.8 g/dL (3.5-5.2); Alkaline Phosphatase 91 U/L (40-130); Anion Gap 14.1 (5-19); Aspartate Amino Transferase 12 U/L (0-40); Blood Urea Nitrogen 17 mg/dL (8-23); Carbon Dioxide 25 mmol/L (22-29); Chloride 103 mmol/L (98-107); Globulin 3.3 g/dL (1.3-4.6); Glomerular Filtration Rate 60.8 mL/min (90-130); Glucose 111 mg/dL (65-115); Osmolality Calculated 288 mOsm/kg (285-295); Potassium 4.1 mmol/L (3.5-5.1); Sodium 138 mmol/L (136-145); Thyroid Stimulating Hormone 1.47 uIU/mL (0.27-4.20); Total Bilirubin 0.3 mg/dL (0.15-1.2); Total Protein 7.1 g/dL (6.6-8.7)
[2023-03-03 10:57] VITALS: BP 128/74; PULSE 53; RESP 18; TEMP 36.9; O2SAT 96
[2023-03-17 10:14] VITALS: BP 123/78; PULSE 55; RESP 16; TEMP 36.9; O2SAT 97
[2023-03-17 10:26] LABS: Basophils # 0.1 10^3/uL (0.0-0.1); Basophils % 0.9 %; Eosinophils # 0.1 10^3/uL (0.0-0.8); Eosinophils % 1.7 %; Hematocrit 39.5 % (42.0-52.0); Hemoglobin 13.1 g/dL (11.7-16.6); Lymphocytes # 1.2 10^3/uL (0.8-4.8); Lymphocytes % 14.1 %; Mean Corpuscular HGB Conc 33.2 g/dL (30.0-36.0); Mean Corpuscular Hemoglobin 31.2 pg (28.0-34.0); Mean Platelet Volume 9.8 fL (7.4-10.4); Monocytes # 0.7 10^3/uL (0.2-0.9); Monocytes % 8.5 %; Neutrophils # 6.08 10^3/uL (1.8-7.7); Neutrophils % 74.6 %; Nucleated Red Blood Cells % 0 %; Platelet Count 247 10^3/cmm (130-400); Red Cell Distribution Width 13.4 % (12.1-15.1); White Blood Count 8.2 10^3/uL (4.0-10.0)
[2023-03-17 11:41] LABS: Alanine Aminotransferase 9 U/L (0-41); Albumin Level 3.7 g/dL (3.5-5.2); Alkaline Phosphatase 95 U/L (40-130); Anion Gap 16.3 (5-19); Aspartate Amino Transferase 12 U/L (0-40); Blood Urea Nitrogen 15 mg/dL (8-23); Calcium 8.8 mg/dL (8.5-10.5); Carbon Dioxide 23 mmol/L (22-29); Chloride 99 mmol/L (98-107); Globulin 3.3 g/dL (1.3-4.6); Glomerular Filtration Rate 60.8 mL/min (90-130); Glucose 90 mg/dL (65-115); Osmolality Calculated 278 mOsm/kg (285-295); Potassium 4.3 mmol/L (3.5-5.1); Sodium 134 mmol/L (136-145); Thyroid Stimulating Hormone 1.68 uIU/mL (0.27-4.20); Total Bilirubin 0.3 mg/dL (0.15-1.2)
[2023-03-17] MEDS: sodium chloride 0.9% 250 ML 75 ML IV (11:47)
[2023-03-17 13:25] VITALS: BP 189/77; PULSE 61; RESP 16; TEMP 36.5; O2SAT 94
== END 2023-03-17 23:59 | disposition home or self-care (01) ==
PROVIDERS: Nurse Practitioner Family; PCP Family Medicine; Visit Provider Internal Medicine Hematology & Oncology
DX: Z51.11 Encounter for antineoplastic chemotherapy; C34.11 Malignant neoplasm of upper lobe, right bronchus or lung; J43.9 Emphysema, unspecified; Z79.899 Other long term (current) drug therapy; Z87.891 Personal history of nicotine dependence
CPT/HCPCS: 80053; 84443; 85025; 96413; 99214; J1642; J7050; J9173

== ENCOUNTER 2023-04-14 09:30 | Oncology outpatient (recurring) (ONCR) | payer OTHER, SELFPAY ==
[2023-03-31 08:14] VITALS: BP 100/66; PULSE 62; RESP 18; TEMP 37; O2SAT 93
[2023-03-31 08:24] LABS: Basophils # 0.1 10^3/uL (0.0-0.1); Basophils % 0.9 %; Eosinophils # 0.1 10^3/uL (0.0-0.8); Eosinophils % 1.5 %; Hematocrit 40.5 % (42.0-52.0); Hemoglobin 13.5 g/dL (11.7-16.6); Lymphocytes % 11.9 %; Mean Corpuscular HGB Conc 33.3 g/dL (30.0-36.0); Mean Corpuscular Hemoglobin 30.7 pg (28.0-34.0); Mean Platelet Volume 9.9 fL (7.4-10.4); Monocytes # 0.5 10^3/uL (0.2-0.9); Monocytes % 6.6 %; Neutrophils # 6.35 10^3/uL (1.8-7.7); Neutrophils % 78.9 %; Nucleated Red Blood Cells % 0 %; Platelet Count 304 10^3/cmm (130-400); Red Cell Distribution Width 12.7 % (12.1-15.1); White Blood Count 8.1 10^3/uL (4.0-10.0)
[2023-03-31 08:52] LABS: Alanine Aminotransferase 11 U/L (0-41); Albumin Level 3.7 g/dL (3.5-5.2); Alkaline Phosphatase 85 U/L (40-130); Anion Gap 15.2 (5-19); Aspartate Amino Transferase 13 U/L (0-40); Blood Urea Nitrogen 15 mg/dL (8-23); Calcium 8.9 mg/dL (8.5-10.5); Carbon Dioxide 24 mmol/L (22-29); Chloride 101 mmol/L (98-107); Globulin 3.4 g/dL (1.3-4.6); Glomerular Filtration Rate 67.2 mL/min (90-130); Glucose 131 mg/dL (65-115); Osmolality Calculated 285 mOsm/kg (285-295); Potassium 4.2 mmol/L (3.5-5.1); Sodium 136 mmol/L (136-145); Thyroid Stimulating Hormone 1.81 uIU/mL (0.27-4.20); Total Bilirubin 0.4 mg/dL (0.15-1.2); Total Protein 7.1 g/dL (6.6-8.7)
[2023-03-31 12:25] VITALS: BP 140/84; PULSE 59; RESP 18; TEMP 35.8; O2SAT 92
[2023-04-14 08:55] VITALS: BMI 22.4
[2023-04-14 09:03] VITALS: BP 101/64; PULSE 62; RESP 18; TEMP 36.9; O2SAT 93
[2023-04-14 09:12] LABS: Basophils # 0.1 10^3/uL (0.0-0.1); Basophils % 0.7 %; Eosinophils # 0.2 10^3/uL (0.0-0.8); Eosinophils % 2.2 %; Hematocrit 39.5 % (42.0-52.0); Hemoglobin 13.1 g/dL (11.7-16.6); Lymphocytes % 12.9 %; Mean Corpuscular HGB Conc 33.2 g/dL (30.0-36.0); Mean Corpuscular Hemoglobin 30.3 pg (28.0-34.0); Mean Corpuscular Volume 91.4 fl (80-94); Mean Platelet Volume 9.6 fL (7.4-10.4); Monocytes # 0.6 10^3/uL (0.2-0.9); Monocytes % 7.7 %; Neutrophils # 5.64 10^3/uL (1.8-7.7); Neutrophils % 76.2 %; Nucleated Red Blood Cells % 0 %; Platelet Count 287 10^3/cmm (130-400); Red Blood Count 4.32 10^6/uL (4.1-5.3); Red Cell Distribution Width 12.5 % (12.1-15.1); White Blood Count 7.4 10^3/uL (4.0-10.0)
[2023-04-14 09:40] LABS: Alanine Aminotransferase 11 U/L (0-41); Albumin Level 3.5 g/dL (3.5-5.2); Alkaline Phosphatase 81 U/L (40-130); Anion Gap 13.3 (5-19); Aspartate Amino Transferase 11 U/L (0-40); Blood Urea Nitrogen 15 mg/dL (8-23); Calcium 8.7 mg/dL (8.5-10.5); Carbon Dioxide 25 mmol/L (22-29); Chloride 101 mmol/L (98-107); Globulin 3.4 g/dL (1.3-4.6); Glomerular Filtration Rate 60.8 mL/min (90-130); Glucose 108 mg/dL (65-115); Osmolality Calculated 281 mOsm/kg (285-295); Potassium 4.3 mmol/L (3.5-5.1); Sodium 135 mmol/L (136-145); Total Bilirubin 0.3 mg/dL (0.15-1.2); Total Protein 6.9 g/dL (6.6-8.7)
[2023-04-14] MEDS: sodium chloride 0.9% 250 ML 75 ML IV (11:16)
[2023-04-14 12:35] VITALS: BP 172/85; PULSE 58; RESP 18; TEMP 36.2; O2SAT 96
== END 2023-04-14 23:59 | disposition home or self-care (01) ==
PROVIDERS: Nurse Practitioner Family; PCP Family Medicine; Visit Provider Internal Medicine Hematology & Oncology
DX: Z51.11 Encounter for antineoplastic chemotherapy; C34.11 Malignant neoplasm of upper lobe, right bronchus or lung; J43.9 Emphysema, unspecified; Z79.899 Other long term (current) drug therapy; Z51.0 Encounter for antineoplastic radiation therapy
CPT/HCPCS: 80053; 83735; 84443; 85025; 96413; 99214; J1642; J7050; J9173

== ENCOUNTER 2023-04-15 09:37 | Oncology outpatient (recurring) (ONCR) | payer OTHER, SELFPAY ==
--- NOTE | 2023-04-15 12:11 | PC.NURSE ---
Pt in CTC for dressing change to port site. Pt had bleeding yesterday and did not want to change dressing himself. Bandage was removed and replaced with gauze and tegaderm. No bleeding to site noted. JW
== END 2023-04-25 23:59 | disposition home or self-care (01) ==
LOC: ONCMED 09:39
PROVIDERS: PCP Family Medicine; Visit Provider Internal Medicine Hematology & Oncology
DX: Z45.2 Encounter for adjustment and management of vascular access device (principal)

== ENCOUNTER 2023-05-16 08:15 | Oncology outpatient (recurring) (ONCR) | payer OTHER, SELFPAY ==
[2023-04-28 10:03] VITALS: BP 101/70; PULSE 57; TEMP 36.6; O2SAT 95
[2023-04-28 10:19] LABS: Basophils # 0.1 10^3/uL (0.0-0.1); Basophils % 0.7 %; Eosinophils # 0.2 10^3/uL (0.0-0.8); Eosinophils % 2.1 %; Hematocrit 37.9 % (42.0-52.0); Hemoglobin 12.7 g/dL (11.7-16.6); Lymphocytes # 1.1 10^3/uL (0.8-4.8); Lymphocytes % 14.1 %; Mean Corpuscular HGB Conc 33.5 g/dL (30.0-36.0); Mean Corpuscular Hemoglobin 30.2 pg (28.0-34.0); Mean Corpuscular Volume 90.2 fl (80-94); Mean Platelet Volume 9.6 fL (7.4-10.4); Monocytes # 0.7 10^3/uL (0.2-0.9); Neutrophils # 5.49 10^3/uL (1.8-7.7); Neutrophils % 73.7 %; Nucleated Red Blood Cells % 0 %; Platelet Count 276 10^3/cmm (130-400); Red Cell Distribution Width 12.7 % (12.1-15.1); White Blood Count 7.5 10^3/uL (4.0-10.0)
[2023-04-28 10:52] LABS: Alanine Aminotransferase 13 U/L (0-41); Albumin Level 3.5 g/dL (3.5-5.2); Alkaline Phosphatase 85 U/L (40-130); Anion Gap 13.1 (5-19); Aspartate Amino Transferase 13 U/L (0-40); Blood Urea Nitrogen 15 mg/dL (8-23); Calcium 8.4 mg/dL (8.5-10.5); Carbon Dioxide 26 mmol/L (22-29); Chloride 101 mmol/L (98-107); Globulin 3.1 g/dL (1.3-4.6); Glomerular Filtration Rate 60.8 mL/min (90-130); Glucose 143 mg/dL (65-115); Osmolality Calculated 285 mOsm/kg (285-295); Potassium 4.1 mmol/L (3.5-5.1); Sodium 136 mmol/L (136-145); Thyroid Stimulating Hormone 1.58 uIU/mL (0.27-4.20); Total Bilirubin 0.2 mg/dL (0.15-1.2); Total Protein 6.6 g/dL (6.6-8.7)
[2023-04-28 13:39] VITALS: BP 184/76; PULSE 64; RESP 18; TEMP 36.8; O2SAT 98
--- NOTE | 2023-04-28 13:40 | PC.NURSE ---
pt didnt take his bp medication, to take when he gets home.
[2023-05-16 08:16] VITALS: BMI 22.3
[2023-05-16 08:17] VITALS: BP 100/66; PULSE 61; RESP 18; TEMP 36.9; O2SAT 94
[2023-05-16 08:38] LABS: Basophils # 0.1 10^3/uL (0.0-0.1); Basophils % 0.9 %; Eosinophils # 0.2 10^3/uL (0.0-0.8); Eosinophils % 2.1 %; Hematocrit 39.6 % (42.0-52.0); Hemoglobin 13.1 g/dL (11.7-16.6); Lymphocytes # 1.1 10^3/uL (0.8-4.8); Mean Corpuscular HGB Conc 33.1 g/dL (30.0-36.0); Mean Corpuscular Hemoglobin 29.3 pg (28.0-34.0); Mean Corpuscular Volume 88.6 fl (80-94); Mean Platelet Volume 9.8 fL (7.4-10.4); Monocytes # 0.6 10^3/uL (0.2-0.9); Monocytes % 8.3 %; Neutrophils # 5.71 10^3/uL (1.8-7.7); Neutrophils % 74.4 %; Nucleated Red Blood Cells % 0 %; Platelet Count 310 10^3/cmm (130-400); Red Blood Count 4.47 10^6/uL (4.1-5.3); Red Cell Distribution Width 13.1 % (12.1-15.1); White Blood Count 7.7 10^3/uL (4.0-10.0)
[2023-05-16 08:56] LABS: Alanine Aminotransferase 10 U/L (0-41); Albumin Level 3.8 g/dL (3.5-5.2); Alkaline Phosphatase 80 U/L (40-130); Anion Gap 12.2 (5-19); Aspartate Amino Transferase 9 U/L (0-40); Blood Urea Nitrogen 17 mg/dL (8-23); Calcium 8.8 mg/dL (8.5-10.5); Carbon Dioxide 26 mmol/L (22-29); Chloride 104 mmol/L (98-107); Globulin 3.1 g/dL (1.3-4.6); Glomerular Filtration Rate 60.8 mL/min (90-130); Glucose 108 mg/dL (65-115); Osmolality Calculated 288 mOsm/kg (285-295); Potassium 4.2 mmol/L (3.5-5.1); Sodium 138 mmol/L (136-145); Thyroid Stimulating Hormone 1.28 uIU/mL (0.27-4.20); Total Bilirubin 0.3 mg/dL (0.15-1.2); Total Protein 6.9 g/dL (6.6-8.7)
[2023-05-16 12:56] VITALS: BP 145/79; PULSE 60; TEMP 36.7; O2SAT 95
== END 2023-05-16 23:59 | disposition home or self-care (01) ==
PROVIDERS: Nurse Practitioner Family; PCP Family Medicine; Visit Provider Internal Medicine Medical Oncology
DX: Z51.11 Encounter for antineoplastic chemotherapy; C34.11 Malignant neoplasm of upper lobe, right bronchus or lung; J43.9 Emphysema, unspecified; Z79.899 Other long term (current) drug therapy; Z87.891 Personal history of nicotine dependence
CPT/HCPCS: 80053; 84443; 85025; 96413; 99214; J1642; J7050; J9173

== ENCOUNTER 2023-06-10 10:35 | Outpatient (CLI) | payer OTHER, SELFPAY ==
[2023-06-10] MEDS: iohexol 350 mg/mL 500 mL Btl (per mL) PO (11:03)
[2023-06-10] MEDS: iohexol 350 mg/mL 500 mL Btl (per mL) IV (12:00)
--- NOTE | 2023-06-10 12:15 | CTR_ITS ---
PROCEDURE INFORMATION: Exam: CT Chest With Contrast; Diagnostic Exam date and time: 06/10/2023 11:58 AM Age: 67 years old Clinical indication: Condition or disease; Lung condition and disease; Cancer of the lung; Lobe, upper; Primary cancer: RT lung; Follow-up oncological assessment; Prior surgery; Surgery date: 6+ months; Surgery type: Port. Aaa endograft, subclavian stent; Patient HX: Follow up of lung cancer and aaa. 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 Radiation optimization: All CT scans at this facility use at least one of these dose optimization techniques: automated exposure control; mA and/or kV adjustment per patient size (includes targeted exams where dose is matched to clinical indication); or iterative reconstruction. Contrast material: OMNI 350; Contrast volume: 100 ml; Contrast route: INTRAVENOUS (IV); REPORTING DATA: Count of CT and Cardiac NM exams in prior 12 months: This patient has received 6 known CTs and 0 known cardiac nuclear medicine studies in the 12 months prior to the current study. COMPARISON: CT chest w con* [id number] 01/20/2023 8:36 AM RADIATION DOSE METRICS: Total DLP (mGy-cm): 818.57 FINDINGS: Tubes, catheters and devices: Left chest port terminates in the distal SVC. Lungs: Scarring again noted at the area of right upper lobe neoplasm. There is a more conspicuous nodular area of soft tissue seen in this region compared to prior study measuring 2.0 x 1.5 cm as best seen on series 3 image 33. Mild paraseptal emphysematous changes at the lung apices. No consolidation. Pleural spaces: No pneumothorax. No pleural effusion. Heart: Coronary artery calcifications noted. No cardiomegaly. No pericardial effusion. Lymph nodes: No enlarged lymph nodes. Vasculature: No aortic aneurysm. Bones/joints: No acute fracture. No aggressive lytic or blastic osseous lesions. Soft tissues: Unremarkable. COMMENTS: In the absence of a history or active diagnosis of lung cancer, it is recommended that this patient with emphysema be evaluated for enrollment in a low dose CT lung cancer screening program. PROCEDURE INFORMATION: Exam: CT Abdomen And Pelvis With Contrast Exam date and time: 06/10/2023 11:58 AM Age: 67 years old Clinical indication: Condition or disease; Lung condition and disease; Cancer of the lung; Lobe, upper; Primary cancer: RT lung; Follow-up oncological assessment; Prior surgery; Surgery date: 6+ months; Surgery type: Port. Aaa endograft, subclavian stent; Patient HX: Follow up of lung cancer and aaa. 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 Radiation optimization: All CT scans at this facility use at least one of these dose optimization techniques: automated exposure control; mA and/or kV adjustment per patient size (includes targeted exams where dose is matched to clinical indication); or iterative reconstruction. Contrast material: OMNI 350; Contrast volume: 100 ml; Contrast route: INTRAVENOUS (IV); REPORTING DATA: Count of CT and Cardiac NM exams in prior 12 months: This patient has received 6 known CTs and 0 known cardiac nuclear medicine studies in the 12 months prior to the current study. COMPARISON: CT angio abdomen pelvis [id number] 03/17/2021 8:37 AM RADIATION DOSE METRICS: Total DLP (mGy-cm): 818.57 FINDINGS: Liver: Normal. No mass. Gallbladder and bile ducts: Normal. No calcified stones. No ductal dilation. Pancreas: Normal. No ductal dilation. Spleen: Normal. No splenomegaly. Adrenal glands: Normal. No mass. Kidneys and ureters: Normal. No hydronephrosis. Stomach and bowel: Unremarkable. No obstruction. No mucosal thickening. Appendix: No evidence of appendicitis. Intraperitoneal space: Unremarkable. No free air. No significant fluid collection. Vasculature: There is a 3.5 cm abdominal aortic aneurysm with a patent aorto bi-iliac endovascular stent. No evidence of endoleak. 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 Lymph nodes: Unremarkable. No enlarged lymph nodes. Urinary bladder: Unremarkable as visualized. Reproductive: Unremarkable as visualized. Bones/joints: No acute fracture. No aggressive lytic or blastic osseous lesions. Soft tissues: Unremarkable. CT/CT chest abdpel w/*[id number] IMPRESSION: 1. There is a more conspicuous/enlarging nodular area of soft tissue in the region of the previously treated right upper lobe neoplasm measuring 2.0 x 1.5 cm compared to 01/20/2023 study. This raises concern for residual/recurrent disease and close interval follow-up is recommended. 2. No evidence of metastatic disease elsewhere within the chest. IMPRESSION: 1. No evidence of metastatic disease in the abdomen/pelvis. 2. Patent aorto bi-iliac endovascular stent with no evidence of endoleak.
== END 2023-06-10 10:36 | disposition home or self-care (01) ==
PROVIDERS: PCP Family Medicine; Visit Provider Internal Medicine Medical Oncology
DX: C34.11 Malignant neoplasm of upper lobe, right bronchus or lung (principal); Z95.828 Presence of other vascular implants and grafts
CPT/HCPCS: 71260; 74177; Q9967

== ENCOUNTER 2023-06-14 09:00 | Oncology outpatient (recurring) (ONCR) | payer OTHER, SELFPAY ==
[2023-05-31 09:21] LABS: Basophils # 0.1 10^3/uL (0.0-0.1); Basophils % 0.8 %; Eosinophils # 0.2 10^3/uL (0.0-0.8); Eosinophils % 2.2 %; Hematocrit 38.8 % (37-53); Lymphocytes # 1.1 10^3/uL (0.8-4.8); Lymphocytes % 13.7 %; Mean Corpuscular HGB Conc 33.2 g/dL (30-55); Mean Corpuscular Hemoglobin 29.5 pg (27-33); Mean Corpuscular Volume 88.6 fl (82-101); Mean Platelet Volume 9.9 fL (7.4-10.4); Monocytes # 0.6 10^3/uL (0.2-0.9); Monocytes % 8.2 %; Neutrophils # 5.79 10^3/uL (1.8-7.7); Neutrophils % 74.8 %; Nucleated Red Blood Cells % 0 %; Platelet Count 241 10^3/cmm (157-399); Red Blood Count 4.38 10^6/uL (3.85-5.65); Red Cell Distribution Width 13.4 % (12.1-15.1); White Blood Count 7.73 10^3/uL (3.29-11.43)
[2023-05-31 09:57] LABS: Alanine Aminotransferase 11 U/L (0-41); Albumin Level 3.8 g/dL (3.5-5.2); Alkaline Phosphatase 87 U/L (40-130); Anion Gap 13.2 (5-19); Aspartate Amino Transferase 11 U/L (0-40); Blood Urea Nitrogen 21 mg/dL (8-23); Calcium 8.4 mg/dL (8.5-10.5); Carbon Dioxide 25 mmol/L (22-29); Chloride 104 mmol/L (98-107); Globulin 3.1 g/dL (1.3-4.6); Glomerular Filtration Rate 50.9 mL/min (90-130); Glucose 108 mg/dL (65-115); Osmolality Calculated 290 mOsm/kg (285-295); Potassium 4.2 mmol/L (3.5-5.1); Sodium 138 mmol/L (136-145); Total Bilirubin 0.3 mg/dL (0.15-1.2); Total Protein 6.9 g/dL (6.6-8.7)
[2023-05-31] MEDS: sodium chloride 0.9% 250 ML 75 ML IV (12:04)
[2023-05-31 13:31] VITALS: BP 135/73; PULSE 63; RESP 18; TEMP 36.3; O2SAT 99
[2023-05-31 13:35] VITALS: BMI 24.0
[2023-06-14 09:13] VITALS: BP 110/69; PULSE 66; RESP 16; TEMP 36.9; O2SAT 94
[2023-06-14 09:30] LABS: Basophils # 0.1 10^3/uL (0.0-0.1); Basophils % 0.8 %; Eosinophils # 0.2 10^3/uL (0.0-0.8); Eosinophils % 2.3 %; Hematocrit 40.2 % (37-53); Lymphocytes % 11.9 %; Mean Corpuscular HGB Conc 33.1 g/dL (30-55); Mean Corpuscular Hemoglobin 29.8 pg (27-33); Mean Corpuscular Volume 90.1 fl (82-101); Mean Platelet Volume 10.1 fL (7.4-10.4); Monocytes # 0.6 10^3/uL (0.2-0.9); Monocytes % 6.9 %; Neutrophils # 6.43 10^3/uL (1.8-7.7); Neutrophils % 77.9 %; Nucleated Red Blood Cells % 0 %; Platelet Count 254 10^3/cmm (157-399); Red Blood Count 4.46 10^6/uL (3.85-5.65); Red Cell Distribution Width 14.4 % (12.1-15.1); White Blood Count 8.26 10^3/uL (3.29-11.43)
[2023-06-14 10:05] LABS: Alanine Aminotransferase 12 U/L (0-41); Albumin Level 3.7 g/dL (3.5-5.2); Alkaline Phosphatase 80 U/L (40-130); Anion Gap 13.9 (5-19); Aspartate Amino Transferase 11 U/L (0-40); Blood Urea Nitrogen 20 mg/dL (8-23); Calcium 8.7 mg/dL (8.5-10.5); Carbon Dioxide 25 mmol/L (22-29); Chloride 105 mmol/L (98-107); Globulin 3.4 g/dL (1.3-4.6); Glomerular Filtration Rate 60.8 mL/min (90-130); Glucose 149 mg/dL (65-115); Osmolality Calculated 295 mOsm/kg (285-295); Potassium 3.9 mmol/L (3.5-5.1); Sodium 140 mmol/L (136-145); Thyroid Stimulating Hormone 2.88 uIU/mL (0.27-4.20); Total Bilirubin 0.5 mg/dL (0.15-1.2); Total Protein 7.1 g/dL (6.6-8.7)
[2023-06-14] MEDS: sodium chloride 0.9% 250 ML 75 ML IV (11:51)
[2023-06-14 13:23] VITALS: BP 124/72; PULSE 57; RESP 18; TEMP 36.6; O2SAT 98
== END 2023-06-14 23:59 | disposition home or self-care (01) ==
PROVIDERS: Nurse Practitioner Family; PCP Family Medicine; Visit Provider Internal Medicine Medical Oncology
DX: Z51.0 Encounter for antineoplastic radiation therapy (principal); Z51.11 Encounter for antineoplastic chemotherapy; C34.11 Malignant neoplasm of upper lobe, right bronchus or lung; J43.9 Emphysema, unspecified; Z79.899 Other long term (current) drug therapy; Z53.9 Procedure and treatment not carried out, unspecified reason
CPT/HCPCS: 80053; 84443; 85025; 96413; 99215; J1642; J7050; J9173

== ENCOUNTER 2023-07-12 16:17 | Outpatient (CLI) | payer OTHER, SELFPAY ==
--- NOTE | 2023-07-12 13:30 | PETR_ITS ---
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 Aaa endograft, subclavian stent LABS AND CLINICAL REPORTS: Glucose: 112 mg/dl Treatment strategy for malignancy (PET staging): Restaging (PS) TECHNIQUE: Imaging protocol: Following at least four-hour fasting and following the injection of radiopharmaceutical, low dose CT images were obtained. Then, PET images were obtained. Attenuation corrected images were constructed using the CT scan. Fused images of PET and CT were reviewed. The standardized uptake values (SUV) reported below are maximum values within a region of interest, expressed in gm/ml. Exam includes orbital meatal line to mid-thigh. Radiopharmaceutical: 12.25 mCi F-18 FDG (Fluorodeoxyglucose), IV. Time of imaging post radiopharmaceutical administration: 1 hour Injection site: site COMPARISON: [facility]. [facility] [id number] 10/13/2022 2:[address] chest abdpel w/*[id number] 06/10/2023 11:58 AM FINDINGS: Tubes, catheters and devices: There is a left chest MediPort with tip near superior cavoatrial junction which is unchanged. Brain: Visualized brain has normal physiologic uptake. Paranasal sinuses: The left maxillary sinus is completely opacified without air-fluid level. There is uptake in the sinus with SUV maximum of 4.1. Pharynx: No abnormal uptake. Larynx: No abnormal uptake. Lungs, pleura and trachea: Anteromedial right upper lobe mass measures 2.0 x 1.5 cm, unchanged with the comparison CT chest. SUV maximum measures 7.5 improved from previous maximum measurement of 8.2. Heart: Stable heart size. Coronary arteries: Stable marked coronary artery atherosclerosis. Mediastinal space: No abnormal uptake. Liver: No abnormal uptake. Gallbladder and bile ducts: No abnormal uptake. Pancreas: No abnormal uptake. Spleen: No abnormal uptake. Adrenal glands: No abnormal uptake. Kidneys and ureters: Normal physiologic uptake. Stomach and bowel: No abnormal uptake. Vasculature: Stable atherosclerotic changes of the vasculature. Aneurysm of the infrarenal abdominal aorta measuring 3.5 cm status post aorto bi-iliac stent graft unchanged. Postsurgical changes right inguinal region are unchanged. Lymph nodes: Precarinal lymph node measuring 9 mm short axis is unchanged without significant uptake SUV max of 1.7 previously 2.3, further decreased. Bones/joints: No abnormal uptake in the visualized axial and appendicular skeleton. Soft tissues: See Vasculature finding. Other findings: There is uptake in the right hilum with SUV maximum of 2.9. No CT correlate. This is new since previous. Mild emphysema is unchanged. PET/[facility] [id number] IMPRESSION: 1. Stable size of the anteromedial right upper lobe mass with comparison CT 06/10/2023. The mass has persistent uptake on PET which is decreased since the prior PET suggesting a partial treatment effect. On today's study there is new mild uptake in the right hilum which is nonspecific but could be metastatic. Continued attention on follow-up recommended. 2. Uptake left maxillary sinus with opacification likely inflammatory.
== END 2023-07-12 16:18 | disposition home or self-care (01) ==
LOC: RAD 16:18
PROVIDERS: PCP Family Medicine; Visit Provider Internal Medicine Medical Oncology
DX: C34.11 Malignant neoplasm of upper lobe, right bronchus or lung (principal)
CPT/HCPCS: 78815; A9552

== ENCOUNTER 2023-07-25 12:14 | Oncology outpatient (recurring) (ONCR) | payer OTHER, SELFPAY ==
[2023-06-28 09:40] VITALS: BP 106/73; PULSE 59; RESP 16; TEMP 37.1; O2SAT 94
[2023-06-28 09:56] LABS: Basophils # 0.1 10^3/uL (0.0-0.1); Eosinophils # 0.2 10^3/uL (0.0-0.8); Eosinophils % 2.8 %; Hematocrit 38.1 % (37-53); Lymphocytes # 0.9 10^3/uL (0.8-4.8); Lymphocytes % 13.5 %; Mean Corpuscular HGB Conc 33.9 g/dL (30-55); Mean Corpuscular Hemoglobin 30.1 pg (27-33); Mean Corpuscular Volume 88.8 fl (82-101); Mean Platelet Volume 9.7 fL (7.4-10.4); Monocytes # 0.5 10^3/uL (0.2-0.9); Monocytes % 7.6 %; Neutrophils # 5.11 10^3/uL (1.8-7.7); Neutrophils % 74.7 %; Nucleated Red Blood Cells % 0 %; Platelet Count 268 10^3/cmm (157-399); Red Blood Count 4.29 10^6/uL (3.85-5.65); Red Cell Distribution Width 14.8 % (12.1-15.1); White Blood Count 6.84 10^3/uL (3.29-11.43)
[2023-06-28 10:26] LABS: Alanine Aminotransferase 10 U/L (0-41); Albumin Level 3.8 g/dL (3.5-5.2); Alkaline Phosphatase 81 U/L (40-130); Anion Gap 13.1 (5-19); Aspartate Amino Transferase 10 U/L (0-40); Blood Urea Nitrogen 20 mg/dL (8-23); Calcium 8.7 mg/dL (8.5-10.5); Carbon Dioxide 26 mmol/L (22-29); Chloride 103 mmol/L (98-107); Globulin 3.3 g/dL (1.3-4.6); Glucose 138 mg/dL (65-115); Osmolality Calculated 291 mOsm/kg (285-295); Potassium 4.1 mmol/L (3.5-5.1); Sodium 138 mmol/L (136-145); Total Bilirubin 0.3 mg/dL (0.15-1.2); Total Protein 7.1 g/dL (6.6-8.7)
[2023-06-28 12:45] VITALS: BP 188/84; PULSE 60; RESP 18; TEMP 36.9; O2SAT 94
== END 2023-07-26 23:59 | disposition home or self-care (01) ==
PROVIDERS: PCP Family Medicine; Visit Provider Internal Medicine Medical Oncology
DX: C34.11 Malignant neoplasm of upper lobe, right bronchus or lung; J43.9 Emphysema, unspecified; Z79.899 Other long term (current) drug therapy; Z87.891 Personal history of nicotine dependence; R25.2 Cramp and spasm; J44.9 Chronic obstructive pulmonary disease, unspecified
CPT/HCPCS: 80053; 84443; 85025; 96413; 99214; 99215; J1642; J7050; J9173

== ENCOUNTER 2023-08-23 08:15 | Oncology outpatient (recurring) (ONCR) | payer OTHER, SELFPAY ==
[2023-08-02 08:54] VITALS: BP 141/67; PULSE 84; RESP 16; TEMP 36.8; O2SAT 96
[2023-08-02 09:15] LABS: Basophils # 0.1 10^3/uL (0.0-0.1); Basophils % 0.9 %; Eosinophils # 0.2 10^3/uL (0.0-0.8); Eosinophils % 2.7 %; Hematocrit 39.8 % (37-53); Lymphocytes # 1.1 10^3/uL (0.8-4.8); Lymphocytes % 13.9 %; Mean Corpuscular HGB Conc 33.4 g/dL (30-55); Mean Corpuscular Hemoglobin 30.4 pg (27-33); Mean Corpuscular Volume 90.9 fl (82-101); Mean Platelet Volume 10.1 fL (7.4-10.4); Monocytes # 0.5 10^3/uL (0.2-0.9); Monocytes % 6.5 %; Neutrophils # 5.78 10^3/uL (1.8-7.7); Neutrophils % 75.6 %; Nucleated Red Blood Cells % 0 %; Platelet Count 271 10^3/cmm (157-399); Red Blood Count 4.38 10^6/uL (3.85-5.65); Red Cell Distribution Width 14.3 % (12.1-15.1); White Blood Count 7.65 10^3/uL (3.29-11.43)
[2023-08-02 09:47] LABS: Alanine Aminotransferase 13 U/L (0-41); Albumin Level 3.8 g/dL (3.5-5.2); Alkaline Phosphatase 86 U/L (40-130); Anion Gap 15.2 (5-19); Aspartate Amino Transferase 12 U/L (0-40); Blood Urea Nitrogen 19 mg/dL (8-23); Calcium 8.6 mg/dL (8.5-10.5); Carbon Dioxide 24 mmol/L (22-29); Chloride 105 mmol/L (98-107); Globulin 3.1 g/dL (1.3-4.6); Glomerular Filtration Rate 55.2 mL/min (90-130); Glucose 135 mg/dL (65-115); Osmolality Calculated 294 mOsm/kg (285-295); Potassium 4.2 mmol/L (3.5-5.1); Sodium 140 mmol/L (136-145); Thyroid Stimulating Hormone 1.44 uIU/mL (0.27-4.20); Total Bilirubin 0.4 mg/dL (0.15-1.2); Total Protein 6.9 g/dL (6.6-8.7)
[2023-08-02] MEDS: sodium chloride 0.9% 500 ML 999 ML IV (10:35)
[2023-08-02 11:45] LABS: Add Urine Microscopic? YES; Bilirubin Urine Neg (Negative); Blood Urine Neg (Negative); Glucose Urine UA Norm (Normal); Ketones Urine Negative (Negative); Leukocyte Esterase Urine Negative (Negative); Nitrate Urine Negative (Negative); Protein Urine 3+ (Negative); Specific Gravity, Urine 1.015 (1.005-1.030); Urine Appearance Clear (CLEAR); Urine Color Yellow (Yellow); Urobilinogen Urine Norm (Negative); pH Urine 6 (5-7)
[2023-08-02 11:48] LABS: Add Urine Culture? No; RBC Urine RARE /hpf (0-2); WBC Urine RARE /hpf (0-5)
[2023-08-02 11:51] VITALS: BP 148/76; PULSE 62; TEMP 36.2; O2SAT 96
[2023-08-02 11:58] LABS: Urine Creatinine 109 mg/dL (39-259)
[2023-08-02 12:10] LABS: Urine Protein Random 247 mg/dL
[2023-08-23 08:57] VITALS: BP 110/64; PULSE 65; RESP 16; TEMP 37.2; O2SAT 95
[2023-08-23 09:53] LABS: Alanine Aminotransferase 14 U/L (0-41); Albumin Level 3.8 g/dL (3.5-5.2); Alkaline Phosphatase 87 U/L (40-130); Anion Gap 14.1 (5-19); Aspartate Amino Transferase 10 U/L (0-40); Blood Urea Nitrogen 17 mg/dL (8-23); Calcium 9.1 mg/dL (8.5-10.5); Carbon Dioxide 26 mmol/L (22-29); Chloride 105 mmol/L (98-107); Globulin 3.2 g/dL (1.3-4.6); Glomerular Filtration Rate 60.6 mL/min (90-130); Glucose 102 mg/dL (65-115); Osmolality Calculated 294 mOsm/kg (285-295); Potassium 4.1 mmol/L (3.5-5.1); Sodium 141 mmol/L (136-145); Thyroid Stimulating Hormone 1.41 uIU/mL (0.27-4.20); Total Bilirubin 0.3 mg/dL (0.15-1.2)
[2023-08-23 09:57] LABS: Basophils # 0.1 10^3/uL (0.0-0.1); Eosinophils # 0.2 10^3/uL (0.0-0.8); Eosinophils % 2.6 %; Hematocrit 39.6 % (37-53); Lymphocytes % 13.8 %; Mean Corpuscular HGB Conc 33.1 g/dL (30-55); Mean Corpuscular Hemoglobin 30.4 pg (27-33); Mean Corpuscular Volume 91.9 fl (82-101); Mean Platelet Volume 10.1 fL (7.4-10.4); Monocytes # 0.5 10^3/uL (0.2-0.9); Monocytes % 7.5 %; Neutrophils # 5.22 10^3/uL (1.8-7.7); Nucleated Red Blood Cells % 0 %; Platelet Count 273 10^3/cmm (157-399); Red Blood Count 4.31 10^6/uL (3.85-5.65); Red Cell Distribution Width 13.8 % (12.1-15.1); White Blood Count 6.96 10^3/uL (3.29-11.43)
[2023-08-23 12:03] VITALS: BP 181/77; PULSE 62; TEMP 36.6; O2SAT 96
== END 2023-08-23 23:59 | disposition home or self-care (01) ==
PROVIDERS: Internal Medicine Medical Oncology; Nurse Practitioner Family; PCP Family Medicine; Visit Provider Internal Medicine Medical Oncology
DX: Z51.0 Encounter for antineoplastic radiation therapy (principal); Z51.11 Encounter for antineoplastic chemotherapy; C34.11 Malignant neoplasm of upper lobe, right bronchus or lung; J43.9 Emphysema, unspecified; Z79.899 Other long term (current) drug therapy; C34.90 Malignant neoplasm of unspecified part of unspecified bronchus or lung; Z53.9 Procedure and treatment not carried out, unspecified reason
CPT/HCPCS: 80053; 81001; 82570; 84156; 84443; 85025; 96413; 99214; J1642; J7040; J7050; J9173

== ENCOUNTER 2023-09-20 09:45 | Oncology outpatient (recurring) (ONCR) | payer OTHER, SELFPAY ==
[2023-09-06 08:55] VITALS: BP 120/73; PULSE 65; RESP 16; TEMP 37; O2SAT 95
[2023-09-06 09:08] LABS: Basophils # 0.1 10^3/uL (0.0-0.1); Basophils % 0.9 %; Eosinophils # 0.2 10^3/uL (0.0-0.8); Eosinophils % 2.4 %; Hematocrit 40.5 % (37-53); Lymphocytes # 0.9 10^3/uL (0.8-4.8); Lymphocytes % 11.5 %; Mean Corpuscular HGB Conc 33.3 g/dL (30-55); Mean Corpuscular Hemoglobin 30.8 pg (27-33); Mean Corpuscular Volume 92.5 fl (82-101); Mean Platelet Volume 9.8 fL (7.4-10.4); Monocytes # 0.6 10^3/uL (0.2-0.9); Monocytes % 8.1 %; Neutrophils # 6.08 10^3/uL (1.8-7.7); Neutrophils % 76.6 %; Nucleated Red Blood Cells % 0 %; Platelet Count 275 10^3/cmm (157-399); Red Blood Count 4.38 10^6/uL (3.85-5.65); Red Cell Distribution Width 13.3 % (12.1-15.1); White Blood Count 7.93 10^3/uL (3.29-11.43)
[2023-09-06 09:52] LABS: Alanine Aminotransferase 12 U/L (0-41); Albumin Level 3.9 g/dL (3.5-5.2); Alkaline Phosphatase 87 U/L (40-130); Anion Gap 12.8 (5-19); Aspartate Amino Transferase 11 U/L (0-40); Blood Urea Nitrogen 19 mg/dL (8-23); Carbon Dioxide 25 mmol/L (22-29); Chloride 105 mmol/L (98-107); Globulin 3.6 g/dL (1.3-4.6); Glomerular Filtration Rate 50.7 mL/min (90-130); Glucose 122 mg/dL (65-115); Osmolality Calculated 292 mOsm/kg (285-295); Potassium 3.8 mmol/L (3.5-5.1); Sodium 139 mmol/L (136-145); Thyroid Stimulating Hormone 1.63 uIU/mL (0.27-4.20); Total Bilirubin 0.3 mg/dL (0.15-1.2); Total Protein 7.5 g/dL (6.6-8.7)
[2023-09-06] MEDS: sodium chloride 0.9% 250 ML 75 ML IV (11:48)
[2023-09-06 13:20] VITALS: BP 169/79; PULSE 68; RESP 18; TEMP 36.6; O2SAT 96
[2023-09-20 09:55] VITALS: BP 123/67; PULSE 64; RESP 16; TEMP 37.1; O2SAT 94
[2023-09-20 10:08] LABS: Basophils # 0.1 10^3/uL (0.0-0.1); Basophils % 0.8 %; Eosinophils # 0.2 10^3/uL (0.0-0.8); Eosinophils % 2.4 %; Hematocrit 38.9 % (37-53); Lymphocytes % 13.5 %; Mean Corpuscular HGB Conc 33.4 g/dL (30-55); Mean Corpuscular Hemoglobin 30.6 pg (27-33); Mean Corpuscular Volume 91.5 fl (82-101); Mean Platelet Volume 9.9 fL (7.4-10.4); Monocytes # 0.6 10^3/uL (0.2-0.9); Monocytes % 8.6 %; Neutrophils # 5.27 10^3/uL (1.8-7.7); Neutrophils % 74.4 %; Nucleated Red Blood Cells % 0 %; Platelet Count 275 10^3/cmm (157-399); Red Blood Count 4.25 10^6/uL (3.85-5.65); White Blood Count 7.09 10^3/uL (3.29-11.43)
[2023-09-20 10:33] LABS: Alanine Aminotransferase 14 U/L (0-41); Alkaline Phosphatase 93 U/L (40-130); Anion Gap 14.1 (5-19); Aspartate Amino Transferase 11 U/L (0-40); Blood Urea Nitrogen 18 mg/dL (8-23); Calcium 9.2 mg/dL (8.5-10.5); Carbon Dioxide 25 mmol/L (22-29); Chloride 104 mmol/L (98-107); Globulin 3.3 g/dL (1.3-4.6); Glomerular Filtration Rate 74.8 mL/min (90-130); Glucose 137 mg/dL (65-115); Osmolality Calculated 292 mOsm/kg (285-295); Potassium 4.1 mmol/L (3.5-5.1); Sodium 139 mmol/L (136-145); Total Bilirubin 0.4 mg/dL (0.15-1.2); Total Protein 7.3 g/dL (6.6-8.7)
[2023-09-20] MEDS: sodium chloride 0.9% 250 ML 150 ML IV (12:27)
[2023-09-20 13:40] VITALS: BP 189/70; PULSE 63; RESP 16; TEMP 36.6; O2SAT 95
== END 2023-09-20 23:59 | disposition home or self-care (01) ==
PROVIDERS: Internal Medicine; Nurse Practitioner Family; PCP Family Medicine; Visit Provider Internal Medicine Medical Oncology
DX: Z51.0 Encounter for antineoplastic radiation therapy; Z51.11 Encounter for antineoplastic chemotherapy; C34.11 Malignant neoplasm of upper lobe, right bronchus or lung; J43.9 Emphysema, unspecified; Z79.899 Other long term (current) drug therapy; C34.90 Malignant neoplasm of unspecified part of unspecified bronchus or lung; Z53.9 Procedure and treatment not carried out, unspecified reason
CPT/HCPCS: 80053; 84443; 85025; 96413; 99214; 99215; J1642; J7050; J9173

== ENCOUNTER 2023-10-18 11:15 | Oncology outpatient (recurring) (ONCR) | payer OTHER, SELFPAY ==
[2023-10-04 11:15] LABS: Basophils # 0.1 10^3/uL (0.0-0.1); Basophils % 0.9 %; Eosinophils # 0.2 10^3/uL (0.0-0.8); Eosinophils % 2.4 %; Hematocrit 38.8 % (37-53); Lymphocytes % 13.3 %; Mean Corpuscular HGB Conc 34.3 g/dL (30-55); Mean Corpuscular Hemoglobin 31.1 pg (27-33); Mean Corpuscular Volume 90.7 fl (82-101); Mean Platelet Volume 10.2 fL (7.4-10.4); Monocytes # 0.5 10^3/uL (0.2-0.9); Neutrophils % 76.3 %; Nucleated Red Blood Cells % 0 %; Platelet Count 291 10^3/cmm (157-399); Red Blood Count 4.28 10^6/uL (3.85-5.65)
[2023-10-04 11:44] LABS: Alanine Aminotransferase 11 U/L (0-41); Albumin Level 3.7 g/dL (3.5-5.2); Alkaline Phosphatase 94 U/L (40-130); Anion Gap 13.3 (5-19); Aspartate Amino Transferase 11 U/L (0-40); Blood Urea Nitrogen 17 mg/dL (8-23); Calcium 9.1 mg/dL (8.5-10.5); Carbon Dioxide 26 mmol/L (22-29); Chloride 104 mmol/L (98-107); Globulin 3.7 g/dL (1.3-4.6); Glucose 121 mg/dL (65-115); Osmolality Calculated 291 mOsm/kg (285-295); Potassium 4.3 mmol/L (3.5-5.1); Sodium 139 mmol/L (136-145); Thyroid Stimulating Hormone 1.59 uIU/mL (0.27-4.20); Total Bilirubin 0.3 mg/dL (0.15-1.2); Total Protein 7.4 g/dL (6.6-8.7)
[2023-10-04] MEDS: sodium chloride 0.9% 250 ML 75 ML IV (12:23)
[2023-10-04 14:15] VITALS: BP 151/70; PULSE 65; RESP 18; TEMP 36.3; O2SAT 93
[2023-10-18 10:30] VITALS: BP 126/77; PULSE 61; RESP 17; TEMP 37; O2SAT 100; BMI 22.5
[2023-10-18 10:54] LABS: Basophils # 0.1 10^3/uL (0.0-0.1); Basophils % 0.8 %; Eosinophils # 0.2 10^3/uL (0.0-0.8); Eosinophils % 2.6 %; Hematocrit 39.1 % (37-53); Lymphocytes % 13.9 %; Mean Corpuscular Hemoglobin 30.1 pg (27-33); Mean Corpuscular Volume 91.4 fl (82-101); Mean Platelet Volume 10.5 fL (7.4-10.4); Monocytes # 0.5 10^3/uL (0.2-0.9); Monocytes % 6.2 %; Neutrophils # 5.64 10^3/uL (1.8-7.7); Neutrophils % 76.2 %; Nucleated Red Blood Cells % 0 %; Platelet Count 254 10^3/cmm (157-399); Red Blood Count 4.28 10^6/uL (3.85-5.65); Red Cell Distribution Width 13.2 % (12.1-15.1)
[2023-10-18 11:13] LABS: Alanine Aminotransferase 12 U/L (0-41); Albumin Level 3.8 g/dL (3.5-5.2); Alkaline Phosphatase 91 U/L (40-130); Anion Gap 11.8 (5-19); Aspartate Amino Transferase 10 U/L (0-40); Blood Urea Nitrogen 21 mg/dL (8-23); Calcium 9.1 mg/dL (8.5-10.5); Carbon Dioxide 27 mmol/L (22-29); Chloride 106 mmol/L (98-107); Globulin 3.6 g/dL (1.3-4.6); Glucose 155 mg/dL (65-115); Osmolality Calculated 298 mOsm/kg (285-295); Potassium 3.8 mmol/L (3.5-5.1); Sodium 141 mmol/L (136-145); Thyroid Stimulating Hormone 1.55 uIU/mL (0.27-4.20); Total Bilirubin 0.3 mg/dL (0.15-1.2); Total Protein 7.4 g/dL (6.6-8.7)
[2023-10-18] MEDS: sodium chloride 0.9% 250 ML 75 ML IV (12:13)
[2023-10-18 14:30] VITALS: BP 126/73; PULSE 60; RESP 16; TEMP 36.7; O2SAT 96
== END 2023-10-18 23:59 | disposition home or self-care (01) ==
PROVIDERS: PCP Family Medicine; Visit Provider Internal Medicine Medical Oncology
DX: C34.11 Malignant neoplasm of upper lobe, right bronchus or lung (principal); J44.9 Chronic obstructive pulmonary disease, unspecified; R25.2 Cramp and spasm; R79.89 Other specified abnormal findings of blood chemistry; Z79.899 Other long term (current) drug therapy; Z51.12 Encounter for antineoplastic immunotherapy; Z53.9 Procedure and treatment not carried out, unspecified reason
CPT/HCPCS: 80053; 84443; 85025; 96413; 96415; 99214; J1642; J7050; J9173

== ENCOUNTER 2023-10-29 06:09 | Emergency (ER) | payer OTHER, SELFPAY ==
[2023-10-29 06:13] VITALS: BP 170/69; PULSE 74; RESP 16; TEMP 36.8; O2SAT 93
--- NOTE | 2023-10-29 06:17 | CTR_ITS ---
PROCEDURE INFORMATION: Exam: CT Cervical Spine Without Contrast Exam date and time: 10/29/2023 6:36 AM Age: 68 years old Clinical indication: Injury or trauma; Fall; Blunt trauma; Additional info: Fall on thinners C/O intermittent pain TECHNIQUE: Imaging protocol: Computed tomography of the cervical spine without contrast. Radiation optimization: All CT scans at this facility use at least one of these dose optimization techniques: automated exposure control; mA and/or kV adjustment per patient size (includes targeted exams where dose is matched to clinical indication); or iterative reconstruction. COMPARISON: PT PET [facility] SUBSEQ [id number] 07/12/2023 2:44 PM RADIATION DOSE METRICS: Total DLP (mGy-cm): 135.57 FINDINGS: Bones/joints: No acute fracture. Normal alignment. No significant disc bulge or herniation. No severe spinal canal stenosis. Uncovertebral joint hypertrophy causing minimal bilateral neural foraminal narrowing at C5-C6 level. Lungs: Emphysematous changes. Soft tissues: Vascular calcifications. CT/CT cervical spin wo con* [id number] IMPRESSION: No acute findings.
--- NOTE | 2023-10-29 06:17 | XRR_ITS ---
PROCEDURE INFORMATION: Exam: XR Left Hip Exam date and time: 10/29/2023 6:25 AM Age: 68 years old Clinical indication: Injury or trauma; Fall; Blunt trauma (contusions or hematomas); Left; Hip; Additional info: Pain S/P fall TECHNIQUE: Imaging protocol: Radiologic exam of the left hip. Views: 2 or 3 views hip with pelvis when performed. COMPARISON: CT chest abdpel w/*[id number] 06/10/2023 11:58 AM FINDINGS: Bones/joints: Mild articular surface narrowing and spurring. No fracture or dislocation. No arterial calcifications. No acute fracture. Soft tissues: Unremarkable. XR/XR hip LT 2-3V wo/w pel* [id number] IMPRESSION: Mild degenerative changes.
--- NOTE | 2023-10-29 06:17 | CTR_ITS ---
PROCEDURE INFORMATION: Exam: CT Head Without Contrast Exam date and time: 10/29/2023 6:34 AM Age: 68 years old Clinical indication: Injury or trauma; Fall; Blunt trauma (contusions or hematomas); Additional info: Fall on thinners TECHNIQUE: Imaging protocol: Computed tomography of the head without contrast. Radiation optimization: All CT scans at this facility use at least one of these dose optimization techniques: automated exposure control; mA and/or kV adjustment per patient size (includes targeted exams where dose is matched to clinical indication); or iterative reconstruction. COMPARISON: MR head wo/w con [id number] 07/19/2022 1:36 PM RADIATION DOSE METRICS: Total DLP (mGy-cm): 1156.48 FINDINGS: Brain: No acute hemorrhage or infarction. Moderate severe periventricular and deep white matter hypodensities suggesting chronic small vessel ischemic changes. Lacunar infarct changes in left lentiform nucleus. Cerebral ventricles: No ventriculomegaly. Paranasal sinuses: Minimal mucosal thickening of bilateral ethmoid air cells. Diffuse mucosal thickening/near complete opacification of left maxillary sinus. Similar findings are seen on previous PET-CT scan. No fluid levels. Mastoid air cells: Visualized mastoid air cells are well aerated. Bones/joints: Unremarkable. No acute fracture. Soft tissues: Unremarkable. CT/CT head wo con* [id number] IMPRESSION: No acute intracranial abnormality.
--- NOTE | 2023-10-29 06:17 | XRR_ITS ---
PROCEDURE INFORMATION: Exam: XR Chest Exam date and time: 10/29/2023 6:29 AM Age: 68 years old Clinical indication: Cough; Additional info: Cough/congestion S/P fall TECHNIQUE: Imaging protocol: Radiologic exam of the chest. Views: 2 views. COMPARISON: CT chest jose w/*[id number] 06/10/2023 11:58 AM FINDINGS: Tubes, catheters and devices: Central line enters from the left and terminates in the SVC. Lungs: Unremarkable. No consolidation. Pleural spaces: Unremarkable. No pleural effusion. No pneumothorax. Heart/Mediastinum: Unremarkable. No cardiomegaly. Bones/joints: Unremarkable. XR/XR chest 2V* [id number] IMPRESSION: No acute findings.
--- NOTE | 2023-10-29 06:17 | ED_ITS ---
HPI - Extremity Problem 2 General: Chief complaint: Extremity Injury, Lower Stated complaint: FALL Time Seen by Provider: 10/29/23 06:10 History of Present Illness: 68-year-old male presents the emergency department chief complaint of recent fall from standing while at home. Patient endorses a prior history of stroke that he is on blood thinners including Plavix patient [place] he did strike his head and was reporting having neck pain prior to arrival by EMS however does not recall any current pain he also endorsed having some left hip pain prior to arrival. Patient does endorse issues with mobility due to prior stroke and deficits in the left side. Patient does not recall any loss of consciousness or any other associated injuries. Patient does endorse having a history of chronic dizziness. Associated symptoms: Deny chest pain, fever(s) or rash Review of Systems 2 General: Reports: 10 or more systems reviewed and unremarkable except in HPI and below Const: Denies: fever(s), chills, fatigue or malaise Eyes: Denies: change in vision or blurry vision Card: Denies: chest pain or palpitations Resp: Denies: dyspnea or productive cough GI: Denies: abdominal pain, nausea or vomiting : Denies: flank pain Musc: Reports: neck pain, extremity pain, joint stiffness and limited range of motion Skin/Breast: Denies: rash or pruritus Neuro: Denies: headache(s) Psych: Denies: anxiety or depression Jhonatan/Lymph: Denies: easy bleeding All/Imm: Denies: urticaria, throat swelling or facial swelling PFSH ED 2 PFSH: Medical History Coronary artery disease NSTEMI (non-ST elevated myocardial infarction) COPD (chronic obstructive pulmonary disease) Non-small cell lung cancer Hx of cataract bilateral History of aortic aneurysm History of blood clots History of CVA (cerebrovascular accident) Hypertension GERD (gastroesophageal reflux disease) Surgical History Port-A-Cath in place Hx of colonoscopy with polypectomy History of esophagogastroduodenoscopy (EGD) History of heart artery stent Family History Other CAD (coronary artery disease) Cancer Clotting disorder Dementia Diabetes Hypertension Lung disease Stroke Denies family history of Hyperlipidemia Psychiatric illness Chronic kidney disease (CKD) Suicide Anesthesia complication Bleeding disorder Social History Smoking and tobacco/nicotine status: former use of tobacco/nicotine Quit status (tobacco/nicotine): has quit using Year quit tobacco: 2020 Former quit date comment: smoked x 15 service: Yes Physical Exam 2 Const: COMMON NORMALS: no acute distress, patient oriented x3 and healthy appearing HENMT: COMMON NORMALS: normocephalic and atraumatic HEAD & SCALP: n ormocephalic and atraumatic Eye: COMMON NORMALS: Equal, round and reactive pupils present and EOMs intact bilaterally PUPIL: Yes Equal, round and reactive pupils present Neck/C-Spine: COMMON NORMALS: supple and no JVD; negative for full ROM (Mild pain to palpation noted paravertebrally no step-offs crepitus or ecchy) Lymph: LYMPHATIC: no lymphadenopathy noted Chest: COMMONS NORMALS: normal inspection of the chest and normal palpation of entire chest wall Resp: COMMON NORMALS: normal respiratory effort and No retractions; negative for clear to auscultation bilaterally (Mild amount of crackles appreciated bilaterally however patient appears in ) EFFORT & INSPECTION: Yes able to speak in complete sentences and Yes symmetric chest movement A USCULTATION: not clear to auscultation bilaterally (Mild amount of crackles appreciated bilaterally however patient appears in ) Cardio: COMMON NORMALS: no JVD, regular rate and regular rhythm RATE: r egular rate RHYTHM: regular rhythm GI: COMMON NORMALS: Normal to inspection, nondistended, normoactive bowel sounds present, Soft to palpation and non-tender INSPECTION: Yes normal to inspection PALPATION: Yes Soft to palpation : COMMON NORMALS: Yes no CVA tenderness BLADDER/KIDNEY EXAM: Yes no CVA tenderness Back/Pelvis: COMMON NORMALS: no CVA tenderness Extremity: COMMON NORMALS: normal to inspection; negative for full ROM (Reduced range of motion appreciated to the left hip no actual shortening or) Neuro: COMMON NORMALS: patient oriented x3, CN's II-XII intact bilaterally, moves all extremities and no focal motor deficits Psych: COMMON NORMALS: mental status grossly normal, Normal thought process present, cooperative and normal affect THOUGHT PROCESS: Normal thought process present Skin: COMMON NORMALS: no rashes or lesions noted GENERAL SKIN EXAM: no rashes or lesions noted Course 2 Vital Signs: Vital signs: Vital Signs Temperature 98.2 F 10/29/23 06:13 Pulse Rate 74 10/29/23 06:13 Respiratory Rate 16 10/29/23 06:13 Blood Pressure 170/69 10/29/23 06:13 Pulse Oximetry 93 10/29/23 06:13 MDM - Extremity (Nontraumatic) Medical Decision Making Due to patient's symptoms and condition basic lab work will be obtained as chest x-ray will be obtained today if his having crackles as well as basic lab work patient's oxygenation is in the mid 90s which patient appears no obvious acute distress. Will continue to follow with additional lab work and imaging. Patient's lab work and imaging came back reassuring no acute fractures or any other concerns were noted patient was subsequent discharged home advised further follow-up with primary care in 3 to 5 days, the patient was started on some Robaxin and as well as some tramadol for any breakthrough pain control patient advised to return the interim if any of his symptoms persist or worse. Lab Data 10/29/23 06:50 10/29/23 06:50 Radiology Impressions Cervical Spine CT 10/29/23 06:17 IMPRESSION: No acute findings. Chest X-Ray 10/29/23 06:17 IMPRESSION: No acute findings. Head CT 10/29/23 06:17 IMPRESSION: No acute intracranial abnormality. Hip/Pelvis X-Ray 10/29/23 06:17 IMPRESSION: Mild degenerative changes. Laboratory Results WBC 10.28 10^3/uL (3.29-11.43) 10/29/23 06:50 RBC 4.05 10^6/uL (3.85-5.65) 10/29/23 06:50 Hgb 12.30 g/dL (11.27-16.99) 10/29/23 06:50 Hct 39.4 % (37-53) 10/29/23 06:50 MCV 97.3 fl (82-101) 10/29/23 06:50 MCH 30.4 pg (27-33) 10/29/23 06:50 MCHC 31.2 g/dL (30-55) 10/29/23 06:50 RDW 13.5 % (12.1-15.1) 10/29/23 06:50 Plt Count 228 10^3/cmm (157-399) 10/29/23 06:50 MPV 10.4 fL (7.4-10.4) 10/29/23 06:50 Neut % (Auto) 79.0 % 10/29/23 06:50 Lymph % (Auto) 10.2 % 10/29/23 06:50 [place] % (Auto) 8.7 % 10/29/23 06:50 Eos % (Auto) 1.3 % 10/29/23 06:50 Baso % (Auto) 0.5 % 10/29/23 06:50 Neut # (Auto) 8.13 10^3/uL (1.8-7.7) H 10/29/23 06:50 Lymph # (Auto) 1.1 10^3/uL (0.8-4.8) 10/29/23 06:50 [place] # (Auto) 0.9 10^3/uL (0.2-0.9) 10/29/23 06:50 Eos # (Auto) 0.1 10^3/uL (0.0-0.8) 10/29/23 06:50 Baso # (Auto) 0.1 10^3/uL (0.0-0.1) 10/29/23 06:50 Nucleated RBC % (auto) 0 % 10/29/23 06:50 Nucleated RBCs # 0.0 /100WBC 10/29/23 06:50 Sodium 141 mmol/L (136-145) 10/29/23 06:50 Potassium 4.2 mmol/L (3.5-5.1) 10/29/23 06:50 Chloride 107 mmol/L (98-107) 10/29/23 06:50 Carbon Dioxide 24 mmol/L (22-29) 10/29/23 06:50 Anion Gap 14.2 (5-19) 10/29/23 06:50 BUN 23 mg/dL (8-23) 10/29/23 06:50 Creatinine 1.2 mg/dL (0.7-1.2) 10/29/23 06:50 GFR Calculation 60.6 mL/min (90-130) L 10/29/23 06:50 Glucose 129 mg/dL (65-115) H 10/29/23 06:50 Calculated Osmolality 297 mOsm/kg (285-295) H 10/29/23 06:50 Calcium 8.8 mg/dL (8.5-10.5) 10/29/23 06:50 Total Bilirubin 0.4 mg/dL (0.15-1.2) 10/29/23 06:50 AST 10 U/L (0-40) 10/29/23 06:50 ALT 12 U/L (0-41) 10/29/23 06:50 Alkaline Phosphatase 92 U/L (40-130) 10/29/23 06:50 C-Reactive Protein 17.9 mg/L (0.0-4.9) H 10/29/23 06:50 Total Protein 7.0 g/dL (6.6-8.7) 10/29/23 06:50 Albumin 3.5 g/dL (3.5-5.2) 10/29/23 06:50 Globulin 3.5 g/dL (1.3-4.6) 10/29/23 06:50 All radiology interpretation(s) finalized by discharge Discharge Plan Discharge Patient Disposition: Home Clinical Impression: Dizziness, nonspecific Fall from standing Qualifiers: Encounter type: initial encounter Qualified Code(s): W19.XXXA - Unspecified fall, initial encounter Strain of left hip Qualifiers: Encounter type: initial encounter Qualified Code(s): S76.012A - Strain of muscle, fascia and tendon of left hip, initial encounter Cervical strain, acute Qualifiers: Encounter type: initial encounter Qualified Code(s): S16.1XXA - Strain of muscle, fascia and tendon at neck level, initial encounter Condition: Stable Prescriptions: New methocarbamol 500 mg tablet 500 mg PO Q8H PRN (Reason: spasms) Qty: 14 0RF tramadol 50 mg tablet 50 mg PO Q8H PRN (Reason: pain) Qty: 14 0RF No Action pantoprazole 40 mg tablet,delayed release (DR/EC) 40 mg PO DAILY aspirin 81 mg tablet,delayed release (DR/EC) 81 mg PO DAILY multivitamin Tablet 1 tab PO EVERY OTHER DAY clopidogrel [Plavix] 75 mg tablet 75 mg PO DAILY Hold Instructions: Resume on 11/14/22. cholecalciferol (vitamin D3) 50 mcg (2,000 unit) capsule 50 mcg PO DAILY carvedilol 12.5 mg tablet 6.25 mg PO BID Rx Instructions: must administer with a meal/food loperamide [Imodium A-D] 2 mg tablet 2 mg PO .COMPLEX Qty: 30 1RF Rx Instructions: administer 2 tabs after first loose stool then 1 tab after each subsequent loose stool, no more than 4 tabs daily fluticasone propionate 50 mcg/actuation spray,suspension 1 spray intranasal BID PRN Rx Instructions: administer into each nostril amlodipine 10 mg tablet 10 mg PO DAILY losartan 25 mg tablet 25 mg PO DAILY ondansetron HCl 8 mg tablet 8 mg PO Q8H PRN pravastatin 20 mg tablet 20 mg PO DAILY Qty: 30 0RF acetaminophen [Tylenol] 325 mg Capsule 325 mg PO QID PRN (Reason: Pain) omega [id number]-[id number]-fish oil [Fish Oil] 300-1,000 mg Capsule 1 cap PO BID Artificial Tears (cmc) 1 % Drops 2 drp OPHTHALMIC (EYE) BID Discharge Orders: Discharge ED (Routine); Ordered 10/29/23 Ordered By: Miguel Carrasquillo Referrals: Cathy Trevizo MD [Primary Care Provider] - 4-7 days Discharge Diet: Advance as tolerated Discharge Activity: Increase activity as tolerated Patient Instructions: Cervical Strain (ED), Hip Sprain (ED), Fall Prevention (ED), Hip Pain (ED), Opioid Safety, Pain Management Activity Restrictions/Additional Instructions: Please further follow-up your primary care doctor in 3 to 5 days, please take medications as prescribed please return in the interim if any of your symptoms persist or worse. 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
[2023-10-29] MEDS: sodium chloride 0.9% 500 ML IV (06:30)
[2023-10-29 07:00] LABS: Basophils # 0.1 10^3/uL (0.0-0.1); Basophils % 0.5 %; Eosinophils # 0.1 10^3/uL (0.0-0.8); Eosinophils % 1.3 %; Hematocrit 39.4 % (37-53); Lymphocytes # 1.1 10^3/uL (0.8-4.8); Lymphocytes % 10.2 %; Mean Corpuscular HGB Conc 31.2 g/dL (30-55); Mean Corpuscular Hemoglobin 30.4 pg (27-33); Mean Corpuscular Volume 97.3 fl (82-101); Mean Platelet Volume 10.4 fL (7.4-10.4); Monocytes # 0.9 10^3/uL (0.2-0.9); Monocytes % 8.7 %; Neutrophils # 8.13 10^3/uL (1.8-7.7); Nucleated Red Blood Cells % 0 %; Platelet Count 228 10^3/cmm (157-399); Red Blood Count 4.05 10^6/uL (3.85-5.65); Red Cell Distribution Width 13.5 % (12.1-15.1); White Blood Count 10.28 10^3/uL (3.29-11.43)
[2023-10-29 07:17] LABS: Alanine Aminotransferase 12 U/L (0-41); Albumin Level 3.5 g/dL (3.5-5.2); Alkaline Phosphatase 92 U/L (40-130); Anion Gap 14.2 (5-19); Aspartate Amino Transferase 10 U/L (0-40); Blood Urea Nitrogen 23 mg/dL (8-23); C Reactive Protein 17.9 mg/L (0.0-4.9); Calcium 8.8 mg/dL (8.5-10.5); Carbon Dioxide 24 mmol/L (22-29); Chloride 107 mmol/L (98-107); Globulin 3.5 g/dL (1.3-4.6); Glomerular Filtration Rate 60.6 mL/min (90-130); Glucose 129 mg/dL (65-115); Osmolality Calculated 297 mOsm/kg (285-295); Potassium 4.2 mmol/L (3.5-5.1); Sodium 141 mmol/L (136-145); Total Bilirubin 0.4 mg/dL (0.15-1.2)
== END 2023-10-29 08:11 | disposition home or self-care (01) ==
PROVIDERS: Emergency Provider Emergency Medicine; PCP Family Medicine
DX: S76.012A Strain of muscle, fascia and tendon of left hip, initial encounter (principal); S16.1XXA Strain of muscle, fascia and tendon at neck level, initial encounter; R42 Dizziness and giddiness; Z79.02 Long term (current) use of antithrombotics/antiplatelets; Z79.82 Long term (current) use of aspirin; Z87.891 Personal history of nicotine dependence; I25.2 Old myocardial infarction; I25.10 Atherosclerotic heart disease of native coronary artery without angina pectoris; J44.9 Chronic obstructive pulmonary disease, unspecified; Z85.118 Personal history of other malignant neoplasm of bronchus and lung; Z86.73 Personal history of transient ischemic attack (TIA), and cerebral infarction without residual deficits; I10 Essential (primary) hypertension; W18.39XA Other fall on same level, initial encounter
CPT/HCPCS: 36415; 70450; 71046; 72125; 73502; 80053; 85025; 86140; 99284; J7040

== ENCOUNTER 2023-11-03 15:02 | Inpatient (IN) | payer OTHER, SELFPAY ==
[2023-11-03] VITALS (18 sets, daily range): BP systolic 100–162; BP diastolic 81–114; PULSE 84–111; RESP 9–21; TEMP 36.6–36.7; O2SAT 90–95; BMI 20.5; BMI 20.7
--- NOTE | 2023-11-03 15:09 | XRR_ITS ---
PROCEDURE INFORMATION: Exam: XR Chest Exam date and time: 11/03/2023 3:27 PM Age: 68 years old Clinical indication: Cough; Additional info: Dyspnea/cough TECHNIQUE: Imaging protocol: Radiologic exam of the chest. Views: 1 view. COMPARISON: CR (CHEST, ) 10/29/2023 6:29 AM FINDINGS: Tubes, catheters and devices: Left subclavian infusion port with its tip in the superior cavoatrial junction. Lungs: Unremarkable. No consolidation. Pleural spaces: Unremarkable. No pleural effusion. No pneumothorax. Heart/Mediastinum: Unremarkable. No cardiomegaly. Vasculature: Vascular stent is seen in the upper abdomen. Bones/joints: Unremarkable. XR/XR chest 1V portable [id number] IMPRESSION: No acute cardiopulmonary process.
--- NOTE | 2023-11-03 15:13 | CTR_ITS ---
PROCEDURE INFORMATION: Exam: CT Head Without Contrast Exam date and time: 11/03/2023 5:49 PM Age: 68 years old Clinical indication: Injury or trauma; Fall; Blunt trauma (contusions or hematomas); Additional info: Loc/fall w prolonged down time TECHNIQUE: Imaging protocol: Computed tomography of the head without contrast. Radiation optimization: All CT scans at this facility use at least one of these dose optimization techniques: automated exposure control; mA and/or kV adjustment per patient size (includes targeted exams where dose is matched to clinical indication); or iterative reconstruction. COMPARISON: CT head wo con* [id number] 10/29/2023 6:34 AM RADIATION DOSE METRICS: Total DLP (mGy-cm): 1206 FINDINGS: Tubes, catheters and devices: ET tube is seen. Brain: There are bilateral periventricular white matter hypodensities consistent with chronic ischemic small vessel disease. There is a left basal ganglia lacunar infarct. Cerebral ventricles: No ventriculomegaly. Paranasal sinuses: There are frothy secretions in the nasopharynx, ethmoid air cells, left maxillary sinus and left frontal sinus. Mastoid air cells: Visualized mastoid air cells are well aerated. Bones/joints: Unremarkable. No acute fracture. Soft tissues: There is left frontal subgaleal hematoma and swelling of the left eyelid. Vasculature: There are calcifications of bilateral cavernous ICAs. There is a partially empty sella. CT/CT head wo con* [id number] IMPRESSION: No intracranial posttraumatic changes.
--- NOTE | 2023-11-03 15:15 | ECG_ITS ---
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 Measurements Intervals [place] Rate: 101 P: 79 ND: 173 QRS: 8 QRSD: 129 T: 82 QT: 389 QTc: 506 Interpretive Statements SINUS TACHYCARDIA WITH OCCASIONAL SUPRAVENTRICULAR PREMATURE COMPLEXES INDETERMINATE AXIS RIGHT BUNDLE BRANCH BLOCK [120+ ms QRS DURATION, UPRIGHT V1, 40+ ms S IN I/aVL/V4/V5/V6] SEPTAL MYOCARDIAL INFARCTION , OF INDETERMINATE AGE [40+ ms Q WAVE IN V1/V2] Compared to ECG 06/18/2022 04:29:42 Indeterminate axis now present Myocardial infarct finding now present Sinus rhythm no longer present Left-axis deviation no longer present Electronically Signed On 11-04-2023 9:29:55 GRADUATE RECRUITER by Fausto Conklin M.D. [id number]
--- NOTE | 2023-11-03 15:22 | W.ED.GENADLT ---
HPI - General Adult General: Chief complaint: Altered Mental Status Stated complaint: found on floor, contusion Time Seen by Provider: 11/03/23 15:09 Source: patient Mode of arrival: EMS History of Present Illness: 68-year-old male presents to the emergency room via EMS. He was found on the floor by a friend. We later put together he had been seen in the emergency room on 2 3 he had talked to his daughter on 2 to suspect he has been down for several days he had significant dependent edema was carpet embedded in the skin. He was found at the bedside facedown on his left side. Initially on arrival he is able to mumble a few answers. He is in severe respiratory distress he indicated he did want to be intubated and his chart was reviewed he is found to be have lung cancer he did have good results from his first round of chemo and radiation which was completed in December 2022 and is currently on maintenance therapy according to oncology notes there is been no sign of recurrence of his cancer. Patient is not able to really give much else in the way of any history. Suspect he has been down on the floor for 2 to 3 days Onset (ago): day(s) (2-3) Associated symptoms: Reports confusion, dyspnea, short of breath and weakness Review of Systems General: Reports: ROS unobtainable due to mental status Resp: Reports: dyspnea Neuro: Reports: confusion CR[facility] ACC[facility] ED PFSH: Medical History Coronary artery disease NSTEMI (non-ST elevated myocardial infarction) COPD (chronic obstructive pulmonary disease) Non-small cell lung cancer Hx of cataract bilateral History of aortic aneurysm History of blood clots History of CVA (cerebrovascular accident) Hypertension GERD (gastroesophageal reflux disease) Surgical History Port-A-Cath in place Hx of colonoscopy with polypectomy History of esophagogastroduodenoscopy (EGD) History of heart artery stent Family History Other CAD (coronary artery disease) Cancer Clotting disorder Dementia Diabetes Hypertension Lung disease Stroke Denies family history of Hyperlipidemia Psychiatric illness Chronic kidney disease (CKD) Suicide Anesthesia complication Bleeding disorder Social History Smoking and tobacco/nicotine status: former use of tobacco/nicotine Quit status (tobacco/nicotine): has quit using Year quit tobacco: 2020 Former quit date comment: smoked x 15 service: Yes Physical Exam Const: GENERAL APPEARANCE: cooperative and lethargic ORIENTATION/CONSCIOUSNESS: Yes confused and Yes lethargic HENMT: COMMON NORMALS: normocephalic HEAD & SCALP: normocephalic OTHER: Intradermal edema from positioning on the left side of the face fragments of carpet embedded in the skin. Resp: EFFORT & INSPECTION: Yes tachypneic, Yes respiratory distress, Yes labored and Yes uses accessory muscles AUSCULTATION: rhonchi, wheezes and diminished lung sounds Cardio: COMMON NORMALS: regular rhythm RATE: tachycardic RHYTHM: regular rhythm GI: COMMON NORMALS: Soft to palpation and No hepatosplenomegaly present AUSCULTATION: Yes normoactive bowel sounds PALPATION: Yes Soft to palpation, No Tenderness to palpation present (GI), No Guarding due to palpation present (GI) and Yes No hepatosplenomegaly present Neuro: SENSORIUM/ORIENTATION: Yes lethargic Skin: OTHER: Pressure ulcers on the left hip and left shoulder dependent edema skin discoloration ecchymosis across the chest and abdomen from positioning. There is also pressure ulcers on the knees and malleolus of the left ankle Procedures Central Line Placement Right IJ: Time Out Performed: Yes Patient Placed on Monitor/Pulse Ox: Yes Prep: mask, gown and gloves Central Line Prep: Chlorhexidine scrub Ultrasound Used for Placement: Yes Central Line Lumen Inserted: triple Post Procedure: sutured in place, good blood return, all ports aspirated, flushed, capped and sterile dressing applied Post Procedure X-Ray: tip of catheter in good position Patient Tolerated Procedure: well Complications: pneumothorax Additional Comments: Initial attempt on the right subclavian is able to cannulate the artery under ultrasound guidance however when we tried to advance the wire the wire would not advance. There appeared to be some debris in the subclavian vein where I could visualize it with the ultrasound. Abandoned subclavian attempt and placed in the right IJ instead. On ultrasound after placement noted small pneumothorax. Thoracic vent placed see below Chest Tube Chest Tube 1: Chest Tube Location: right Chest Tube Prep: Yes sterile drapes applied and other Incision Made With: #11 blade Post Procedure: other (Adhesive thoracic vent to the skin.) Tube Drainage: none Post Procedure CXR?: Yes Patient Tolerated Procedure: Yes Progress: Thoracic vent placed Midclavicular line anteriorly. Was able to use a syringe and withdraw approximately 40 mL of air. Repeat chest x-ray showed near complete resolution of the pneumothorax. Thoracic vent placed to suction since patient is on positive pressure ventilation. Intubation sedative: Etomidate Mg Given: 20 paralytic: Vecuronium Mg Given: 10 Laryngoscope: fiber optic video scope Assist Device Used: fiber optic device ET Tube Size: 8 ET Tube Uncuffed: No Tube Secured Depth (cm): 22 Tube Secured Location: teeth Tube Placement Confirmation: visualized tube passing through cords, equal breath sounds bilaterally and no breath sounds over epigastrium Patient Tolerated Procedure: well Intubation Complications: none Course Vital Signs: Vital signs: Vital Signs Temperature 97.9 F 11/03/23 20:22 Pulse Rate 87 11/04/23 05:43 Respiratory Rate 21 H 11/04/23 04:50 Blood Pressure 100/81 11/03/23 18:15 Pulse Oximetry 92 11/04/23 04:50 Oxygen Delivery Me thod Mechanical Ventil ation 11/03/23 18:55 Fraction of Inspir ed Oxygen 70 11/04/23 04:50 MDM - General Adult Medical Decision Making Patient presents emergency room after extended downtime expected to be around 2 possibly 3 days. Has significant pressure ulcers forming as well as dependent edema on the face and chest from his positioning. He was hypotensive and poorly responsive. Patient did indicate he wanted to be a full code in his chart he is listed as a full code. He has known stage IIIa or B cancer to which she completed treatment in December 2022 and is currently on maintenance therapy every 2 weeks. I was able to talk to his daughter very briefly after he arrived she wished everything to be done patient wished indicated he wishes to be a full code with ventilation if necessary. Was able to also talk to Dr. Hebert his attending oncologist he felt that the patient's response to chemotherapy had been good and had been no significant recurrences that they were aware of the patient should be treated aggressively by this time he had already been intubated. He improved on the ventilator. Central line was placed a difficult time advancing the wire in the right subclavian attempt was abandoned and platelet the central line is placed in the right IJ. Concerned that the patient may have a thrombosis in the right subclavian due to his extended downtime. Small pneumothorax noted after attempted placement in the right subclavian region which was resolved with the thoracic vent that was left to suction. Patient started on Vanco and Zosyn he was initially started on Levophed we did do quite a bit of titration with it at 1 point had off however he had recurrent hypotension and it was restarted a lower dose. Patient given IV fluid boluses. Significant lab abnormalities reviewed as found on the chart. Will admit for likely pneumonia rhabdomyolysis Hypernatremia acute kidney injury and sepsis. Medical Records I reviewed the patient's medical records. Lab Data I reviewed the patient's lab results. 11/04/23 03:45 11/04/23 03:[address] 11/03/23 15:13 IMPRESSION: No intracranial posttraumatic changes. Chest X-Ray 11/04/23 03:08 IMPRESSION: 1. No evidence of residual pneumothorax. 2. Interval placement of enteric tube with side port at the gastroesophageal junction. Recommend advancement. Laboratory Results WBC 10.98 10^3/uL (3.29-11.43) 11/03/23 15:23 RBC 4.90 10^6/uL (3.85-5.65) 11/03/23 15:23 Hgb 14.90 g/dL (11.27-16.99) 11/03/23 15:23 Hct 45.3 % (37-53) 11/03/23 15:23 MCV 92.4 fl (82-101) 11/03/23 15:23 MCH 30.4 pg (27-33) 11/03/23 15:23 MCHC 32.9 g/dL (30-55) 11/03/23 15:23 RDW 13.7 % (12.1-15.1) 11/03/23 15:23 Plt Count 398 10^3/cmm (157-399) 11/03/23 15:23 MPV 10.7 fL (7.4-10.4) H 11/03/23 15:23 Neut % (Auto) 80.2 % 11/03/23 15:23 Lymph % (Auto) 7.6 % 11/03/23 15:23 Hitchcock % (Auto) 11.8 % 11/03/23 15:23 Eos % (Auto) 0.0 % 11/03/23 15:23 Baso % (Auto) 0.1 % 11/03/23 15:23 Neut # (Auto) 8.81 10^3/uL (1.8-7.7) H 11/03/23 15:23 Lymph # (Auto) 0.8 10^3/uL (0.8-4.8) 11/03/23 15:23 Hitchcock # (Auto) 1.3 10^3/uL (0.2-0.9) H 11/03/23 15:23 Eos # (Auto) 0.0 10^3/uL (0.0-0.8) 11/03/23 15:23 Baso # (Auto) 0.0 10^3/uL (0.0-0.1) 11/03/23 15:23 Nucleated RBC % (auto) 0 % 11/03/23 15: Nucleated RBCs # 0.0 /100WBC 11/03/23 15:23 Specimen Type Arterial 11/03/23 16:24 Sample Site Radial, left 11/03/23 16:24 ABG pH 7.28 (7.35-7.45) L 11/03/23 16:24 ABG pCO2 51.3 mmHg (35-45) H 11/03/23 16:24 ABG pO2 339.0 mmHg (80.0-100.0) H 11/03/23 16:24 ABG PO2/FiO2 Ratio 0 11/03/23 16:24 ABG HCO3 24.2 mmol/L (22-26) 11/03/23 16:24 ABG O2 Saturation 99.7 11/03/23 16:24 ABG Base Excess -3.2 mmol/L (-2.0-2.0) L 11/03/23 16:24 Josh Test Pos 11/03/23 16:24 A-a O2 Gradient 39.0 mmHg (5-10) H 11/03/23 16:24 Hematocrit 48.6 % (42-52) 11/03/23 16:24 Hgb O2 Saturation 98.8 % (95-100) 11/03/23 16:24 Carboxyhemoglobin 0.5 %THgb (0.4-20.1) 11/03/23 16:24 Methemoglobin 0.4 % (0.4-1.5) 11/03/23 16:24 Total Hemoglobin 15.9 g/dL (14-18) 11/03/23 16:24 Sodium 159.0 mmol/L (131-143) H 11/03/23 16:24 Potassium 3.6 mmol/L (3.5-5.0) 11/03/23 16:24 Glucose 167.0 mg/dL (70-115) H 11/03/23 16:24 Ionized Calcium 1.2 mmol/L (1.1-1.4) 11/03/23 16:24 O2 Delivery Device Vent 11/03/23 16:24 FiO2 100.0 % 11/03/23 16:24 Tidal Volume 0.50 11/03/23 16:24 PEEP 5.0 cmH20 11/03/23 16:24 Golf Player Assistant ID glc 11/03/23 16:24 Sodium 153 mmol/L (136-145) H 11/03/23 17:27 Potassium 4.0 mmol/L (3.5-5.1) 11/03/23 15:23 Chloride 112 mmol/L (98-107) H 11/03/23 15:23 Carbon Dioxide 20 mmol/L (22-29) L 11/03/23 15:23 Anion Gap 26.0 (5-19) H 11/03/23 15:23 BUN 72 mg/dL (8-23) H 11/03/23 15:23 Creatinine 1.6 mg/dL (0.7-1.2) H 11/03/23 15:23 GFR Calculation 43.5 mL/min (90-130) L 11/03/23 15:23 Glucose 141 mg/dL (65-115) H 11/03/23 15:23 POC Glucose 139 mg/dL (70-110) H 11/03/23 15:26 Estimat Average Glucose 137 11/03/23 15:23 Hemoglobin A1c 6.4 % (4.0-6.0) H 11/03/23 15:23 Calculated Osmolality 342 mOsm/kg (285-295) H 11/03/23 15:23 Lactic Acid 2.3 mmol/L (0.5-2.2) H 11/03/23 15:23 Calcium 8.9 mg/dL (8.5-10.5) 11/03/23 15:23 Total Bilirubin 0.7 mg/dL (0.15-1.2) 11/03/23 15:23 AST 37 U/L (0-40) 11/03/23 15:23 ALT 58 U/L (0-41) H 11/03/23 15:23 Alkaline Phosphatase 90 U/L (40-130) 11/03/23 15:23 Creatine Kinase 1193 U/L (39-308) H* 11/03/23 15:23 Troponin T Baseline 68 ng/L (0-15) H 11/03/23 15:23 Troponin T 120 Minute 77.16 ng/L (0-15) H 11/03/23 17:27 Delta Troponin T 9.16 ABS# (0-10) 11/03/23 17:27 Total Protein 7.7 g/dL (6.6-8.7) 11/03/23 15:23 Albumin 3.5 g/dL (3.5-5.2) 11/03/23 15:23 Globulin 4.2 g/dL (1.3-4.6) 11/03/23 15:23 Vitamin B12 > 2000 pg/mL (232-1245) H 11/03/23 17:27 Procalcitonin 0.20 ng/mL (0-0.5) 11/03/23 17:27 TSH 2.16 uIU/mL (0.27-4.20) 11/03/23 17:27 Urine Color Yellow (Yellow) 11/03/23 17:07 Urine Appearance Clear (CLEAR) 11/03/23 17:07 Urine pH 6 (5-7) 11/03/23 17:07 Ur Specific Purcell 1.020 (1.005-1.030) 11/03/23 17:07 Urine Protein 3+ (Negative) H 11/03/23 17:07 Urine Glucose (UA) Norm (Normal) 11/03/23 17:07 Urine Ketones 1+ (Negative) H 11/03/23 17:07 Urine Blood 3+ (Negative) H 11/03/23 17:07 Urine Nitrate Negative (Negative) 11/03/23 17:07 Urine Bilirubin Neg (Negative) 11/03/23 17:07 Urine Urobilinogen Norm mg/dL (Negative) 11/03/23 17:07 Ur Leukocyte Esterase Negative (Negative) 11/03/23 17:07 Urine RBC 5-10 /hpf (0-2) H 11/03/23 17:07 Urine WBC 0-4 /hpf (0-5) H 11/03/23 17:07 Ur Squamous Epith Cells 0-4 /hpf (0-5) H 11/03/23 17:07 Amorphous Sediment Trace /hpf 11/03/23 17:07 Urine Bacteria Trace /hpf (NONE) 11/03/23 17:07 Hyaline Casts 0-4 /lpf H 11/03/23 17:07 Fine Granular Casts 0-4 /lpf H 11/03/23 17:07 Urine Mucus 1+ /hpf 11/03/23 17:07 Serum Ketones Negative (Negative) 11/03/23 15:23 All radiology interpretation(s) finalized by discharge Critical Care Time Critical Care Time: Critical Care Time: Yes Total Critical Care Time: 70 Attestation: The high probability of a clinically significant, sudden or life threatening deterioration of the patient's cardiovascular respiratory system(s) required my full and direct attention, intervention and personal management. The critical care time is as shown. 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
[2023-11-03 15:31] LABS: Glucose Point of Care 139 mg/dL (70-110)
[2023-11-03] MEDS: norepinephrine 4 MG/250 ML BAG 30 MG IV (15:44)
[2023-11-03] MEDS: vecuronium 10 mg SDV IVP (15:46)
[2023-11-03] MEDS: etomidate 2 mg/mL INJ SDV 10 mL 20 MG IVP (15:46)
[2023-11-03 15:47] LABS: Basophils % 0.1 %; Hematocrit 45.3 % (37-53); Lymphocytes # 0.8 10^3/uL (0.8-4.8); Lymphocytes % 7.6 %; Mean Corpuscular HGB Conc 32.9 g/dL (30-55); Mean Corpuscular Hemoglobin 30.4 pg (27-33); Mean Corpuscular Volume 92.4 fl (82-101); Mean Platelet Volume 10.7 fL (7.4-10.4); Monocytes # 1.3 10^3/uL (0.2-0.9); Monocytes % 11.8 %; Neutrophils # 8.81 10^3/uL (1.8-7.7); Neutrophils % 80.2 %; Nucleated Red Blood Cells % 0 %; Platelet Count 398 10^3/cmm (157-399); Red Cell Distribution Width 13.7 % (12.1-15.1); White Blood Count 10.98 10^3/uL (3.29-11.43)
[2023-11-03 15:56] LABS: Ketone (Acetest) Serum Negative (Negative)
--- NOTE | 2023-11-03 16:11 | XR_ITS ---
WS: [id number] XR chest 1V portable [id number] REASON FOR EXAM: intubation, central line FINDINGS: Chemotherapy infusion port of the left chest with trans left subclavian vein catheter with the tip in the mid superior vena cava. Endotracheal tube at the level of the clavicles. Right internal jugular central venous line with the tip in the distal third of the superior vena cava . Moderately tortuous and ectatic thoracic aorta. Normal heart size. Calcified granulomas disease bilaterally. Overlying skinfold artifact right lung apex. No acute or subacute pulmonary parenchymal or pleural abnormality. 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 IMPRESSION: Right IJ central line placement as above. Endotracheal tube placement as above. No acute chest abnormality.
[2023-11-03 16:12] LABS: Troponin(5th) Baseline 68 ng/L (0-15)
[2023-11-03 16:15] LABS: Alanine Aminotransferase 58 U/L (0-41); Albumin Level 3.5 g/dL (3.5-5.2); Alkaline Phosphatase 90 U/L (40-130); Aspartate Amino Transferase 37 U/L (0-40); Blood Urea Nitrogen 72 mg/dL (8-23); Calcium 8.9 mg/dL (8.5-10.5); Carbon Dioxide 20 mmol/L (22-29); Chloride 112 mmol/L (98-107); Globulin 4.2 g/dL (1.3-4.6); Glomerular Filtration Rate 43.5 mL/min (90-130); Glucose 141 mg/dL (65-115); Osmolality Calculated 342 mOsm/kg (285-295); Sodium 154 mmol/L (136-145); Total Bilirubin 0.7 mg/dL (0.15-1.2); Total Protein 7.7 g/dL (6.6-8.7)
[2023-11-03 16:16] LABS: Lactic Sepsis W/Reflex 2.3 mmol/L (0.5-2.2)
[2023-11-03 16:18] LABS: Creatine Phosphokinase 1193 U/L (39-308)
[2023-11-03] MEDS: fentaNYL 1,000 MCG/100 ML BAG 2.5 MCG IV (16:31)
--- NOTE | 2023-11-03 16:31 | XRR_ITS ---
PROCEDURE INFORMATION: Exam: XR Chest Exam date and time: 11/03/2023 4:32 PM Age: 68 years old Clinical indication: Device placement; Other: Og placement TECHNIQUE: Imaging protocol: Radiologic exam of the chest. Views: 1 view. COMPARISON: CR XR chest 1V portable [id number] 11/03/2023 4:17 PM FINDINGS: Tubes, catheters and devices: Tip of the ET tube is in satisfactory position. Left subclavian infusion port tip is just proximal to the superior cavoatrial junction. The right internal jugular central line tip is seen in the right cavoatrial junction. Lungs: There is a new left lower lobe consolidation collapse with an associated left pleural effusion. Pleural spaces: No right pleural effusion. Heart/Mediastinum: Unremarkable. No cardiomegaly. There is a tiny right apical pneumothorax. Vasculature: There are aortic arch calcifications. Bones/joints: Mild degenerative disease of the right acromioclavicular joint.. XR/XR chest 1V portable [id number] IMPRESSION: 1. ET tube tip is in satisfactory position. 2. No feeding tube is visualized. 3. New left lower lobe consolidation/collapse with left pleural effusion. 4. Tiny right apical pneumothorax.
--- NOTE | 2023-11-03 16:33 | PC.PHAR ---
Addendum entered by Nuria Pagan 11/04/23 10:42: medications entered are from the [facility]ts [facility] that [facility]-previously entered med list had ultram 50mg q8h prn,zofran 8mg q8h prn,methocarbamol 500mg q8h prn,losartan 25mg daily,flonase 1s bid prn,plavix 75mg daily,vitamin d3 2000 units daily,aspirin 81mg daily,artificial tears and tylenol prn all of those listed mediations above have been deleted from med list due to medications not being on current medication list from the va Addendum entered by Nuria Pagan 11/04/23 07:54: still waiting on va to fax med list Original Note: pt is intubated-no meds pull up on ext med history-faxed va for med list-will update med list when va faxes med list
[2023-11-03 16:38] LABS: ABG PCO2 51.3 mmHg (35-45); ABG PH Result 7.28 (7.35-7.45); Arterial Blood Gas Hematocrit 48.6 % (42-52); Base Excess ABG -3.2 mmol/L (-2.0-2.0); Blood Gas Allen Test Pos; Blood Gas Operator Identificat glc; Blood Gas Sample Site Radial, left; Blood Gas Sample Type Arterial; Carboxyhemoglobin 0.5 %THgb (0.4-20.1); HCO3 ABG 24.2 mmol/L (22-26); HGB O2 Sat 98.8 % (95-100); Ionized Calcium Level - ABG 1.2 mmol/L (1.1-1.4); Methemoglobin 0.4 % (0.4-1.5); Oxygen Device VENT; Oxygen Saturation ABG 99.7; PO2 FiO2 Ratio Arterial Blood 0; Potassium Level - ABG 3.6 mmol/L (3.5-5.0); Total Hemoglobin 15.9 g/dL (14-18)
[2023-11-03] MEDS: midazolam hcl 100 MG/100 ML BAG IV (16:40)
--- NOTE | 2023-11-03 17:14 | ECG_ITS ---
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 Measurements Intervals [place] Rate: 101 P: 0 MO: 0 QRS: 64 QRSD: 137 T: 78 QT: 392 QTc: 510 Interpretive Statements SINUS TACHYCARDIA INTRAVENTRICULAR CONDUCTION DELAY [130+ ms QRS DURATION] Compared to ECG 11/03/2023 15:15:49 Intraventricular conduction delay now present Sinus tachycardia no longer present Indeterminate axis no longer present Right bundle-branch block no longer present Myocardial infarct finding no longer present Electronically Signed On 11-04-2023 9:31:30 DESIGN DRAFTER CHIEF by Fausto Conklin M.D. [id number]
[2023-11-03 17:29] LABS: Reflex Lactate Order REFLEX LACTIC ORDERD
[2023-11-03 17:31] LABS: Add Urine Microscopic? YES; Bilirubin Urine Neg (Negative); Blood Urine 3+ (Negative); Glucose Urine UA Norm (Normal); Ketones Urine 1+ (Negative); Leukocyte Esterase Urine Negative (Negative); Nitrate Urine Negative (Negative); Protein Urine 3+ (Negative); Urine Appearance Clear (CLEAR); Urine Color Yellow (Yellow); Urobilinogen Urine Norm (Negative); pH Urine 6 (5-7)
--- NOTE | 2023-11-03 17:35 | ECG_ITS ---
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 Measurements Intervals [place] Rate: 98 P: 80 [place]: 155 QRS: 62 QRSD: 134 T: 81 QT: 390 QTc: 498 Interpretive Statements SINUS RHYTHM INTRAVENTRICULAR CONDUCTION DELAY [130+ ms QRS DURATION] Compared to ECG 11/03/2023 17:14:20 Atrial flutter no longer present Electronically Signed On 11-04-2023 9:29:29 DENTURES LAB TECHNICIAN by Fausto Conklin M.D. [id number]
[2023-11-03 17:49] LABS: Add Urine Culture? No; Amorphous Sediment Urine TRACE /hpf; Bacteria Urine TRACE /hpf; Fine Granular Casts Urine 0-4 /lpf; Hyaline Casts Urine 0-4 /lpf; Mucus Urine 1+ /hpf; Squamous Epithelial Cell Urine 0-4 /hpf (0-5); WBC Urine 0-4 /hpf (0-5)
[2023-11-03 17:56] LABS: Troponin 5 2HR 77.16 ng/L (0-15); Troponin 5 2HR Delta 9.16 ABS# (0-10)
--- NOTE | 2023-11-03 18:00 | XRR_ITS ---
PROCEDURE INFORMATION: Exam: XR Chest Exam date and time: 11/03/2023 6:52 PM Age: 68 years old Clinical indication: Other: Ptx TECHNIQUE: Imaging protocol: Radiologic exam of the chest. Views: 1 view. COMPARISON: CR XR chest 1V portable [id number] 11/03/2023 4:32 PM FINDINGS: Tubes, catheters and devices: ET tube, left subclavian infusion port and right internal jugular central line are in stable positions. Lungs: Similar left lower lobe consolidation/collapse. Pleural spaces: There is near-complete resolution of the right apical pneumothorax. Heart/Mediastinum: Unremarkable. No cardiomegaly. Vasculature: Stent in the upper abdomen. Bones/joints: Unremarkable. XR/XR chest 1V portable [id number] IMPRESSION: Near-complete resolution of the right apical pneumothorax.
--- NOTE | 2023-11-03 18:17 | PM.HP ---
Providers/Chief Complaint Admitting Physician: Ivonne Woody MD Primary Care Provider: Cathy Trevizo MD Chief Complaint: found on floor, contusion History of Present Illness Mr.: 68-year male who lives alone, his friend checks on him, presented to the hospital after sustaining a fall 3 to 4 days ago, patient laid on the carpet until he was found by his friend today, patient was able to talk however he was in respite distress, patient gave consent for intubation to the ER physician, he was intubated and sedated for respiratory distress, he did not lose pulse, at the time of evaluation he is intubated and sedated currently on Levophed Getting IV fluids he does have mild rhabdomyolysis, he is hypernatremic with MOLLY, hypovolemic shock, head CT unremarkable, ER physician placed endotracheal tube size 8, during gentleman placement patient developed pneumothorax apical, Thora vent was placed currently it is attached to the suction Review of Systems General: Reports: ROS unobtainable due to endotracheal tube Medications/Allergies Home Medications Medication Instructions Recorded Confirmed Last Taken Type aspirin 81 mg tablet,delayed 81 mg PO DAILY 07/21/21 10/18/23 11/10/22 History release clopidogrel 75 mg tablet (Plavix) 75 mg PO DAILY 07/21/21 10/18/23 11/05/22 History multivitamin 1 tab PO EVERY OTHER DAY 07/21/21 10/18/23 11/09/22 History pantoprazole 40 mg tablet,delayed 40 mg PO DAILY 07/21/21 10/18/23 11/10/22 History release acetaminophen 325 mg capsule 325 mg PO QID PRN Pain 06/18/22 10/18/23 11/10/22 History (Tylenol) carboxymethylcellulose sodium 1 % 2 drp ophthalmic (eye) BID 06/18/22 10/18/23 11/09/22 History eye drops (Artificial Tears (carboxymethylcellulose)) omega 7-shk-lsr-fish oil 300 1 cap PO BID 06/18/22 10/18/23 11/10/22 History mg-1,000 mg capsule (Fish Oil) cholecalciferol (vitamin D3) 50 50 mcg PO DAILY 11/03/22 10/18/23 11/10/22 History mcg (2,000 unit) capsule carvedilol 12.5 mg tablet 6.25 mg PO BID 11/22/22 10/18/23 Unknown History pravastatin 20 mg tablet 20 mg PO DAILY #30 tabs 11/29/22 10/18/23 Unknown Rx amlodipine 10 mg tablet 10 mg PO DAILY 12/06/22 10/18/23 Unknown History fluticasone propionate 50 1 spray intranasal BID PRN 12/06/22 10/18/23 Unknown History mcg/actuation nasal spray,suspension losartan 25 mg tablet 25 mg PO DAILY 12/06/22 10/18/23 Unknown History ondansetron HCl 8 mg tablet 8 mg PO Q8H PRN 12/06/22 10/18/23 Unknown History loperamide 2 mg tablet (Imodium 2 mg PO .COMPLEX #30 tabs 04/14/23 10/18/23 Unknown Rx A-D) methocarbamol 500 mg tablet 500 mg PO Q8H PRN spasms #14 tabs 10/29/23 Unknown Rx tramadol 50 mg tablet 50 mg PO Q8H PRN pain #14 tabs 10/29/23 Unknown Rx Allergies Allergy/AdvReac Type Severity Reaction Status Date / Time loratadine Allergy Unknown Verified 11/03/23 15:20 rosuvastatin [From Crestor] Allergy Unknown Verified 11/03/23 15:20 simvastatin Allergy Unknown Verified 11/03/23 15:20 influenza vaccine Allergy ALGY-Anaphy Uncoded 11/03/23 15:20 laxis PFSH Acute PFSH: Medical History Coronary artery disease NSTEMI (non-ST elevated myocardial infarction) COPD (chronic obstructive pulmonary disease) Non-small cell lung cancer Hx of cataract bilateral History of aortic aneurysm History of blood clots History of CVA (cerebrovascular accident) Hypertension GERD (gastroesophageal reflux disease) Surgical History Port-A-Cath in place Hx of colonoscopy with polypectomy History of esophagogastroduodenoscopy (EGD) History of heart artery stent Family History Other CAD (coronary artery disease) Cancer Clotting disorder Dementia Diabetes Hypertension Lung disease Stroke Denies family history of Hyperlipidemia Psychiatric illness Chronic kidney disease (CKD) Suicide Anesthesia complication Bleeding disorder Social History Smoking and tobacco/nicotine status: former use of tobacco/nicotine Quit status (tobacco/nicotine): has quit using Year quit tobacco: 2020 Former quit date comment: smoked x 15 service: Yes Vitals/I&O/Wt Last Vital Signs Temp 98.1 F 11/03/23 15:14 Pulse 101 H 11/03/23 15:14 Resp 16 11/03/23 16:01 BP 152/87 11/03/23 15:14 Pulse Ox 95 11/03/23 15:14 O2 Del Method Nasal Cannula 11/03/23 15:14 FiO2 50 11/03/23 16:54 11/03/23 11/03/23 11/03/23 06:59 14:59 22:59 Intake Total 2.308 / 2.308 Balance 2.308 / 2.308 Weight last 48 hrs Weight 72.575 kg Physical Exam Narrative: Thora vent attached to the suction Currently saturating well Currently on Levophed NG tube in place endotracheal tube size 8 at 23 cm Abdomen flat, Petechiae with erythema, contact dermatitis left side of his body Scrotal edema with erythema I do not see any sign of Chiquita's gangrene or cachectic, malnourished no signs of purulent cellulitis Neuroexam is Limited Urinary Catheter Management: Díaz: Cath Placed During This Visit: yes Urinary Catheter Date of Insertion: 11/03/23 Urinary Catheter Time of Insertion: 17:00 Data 11/03/23 15:23 11/03/23 15:23 A&P Assessment and plan (1) History of fall within past 90 days: (2) Port-A-Cath in place: (3) Elevated serum creatinine: (4) Lung cancer: (5) 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: (6) Fall from standing: Qualifiers: Encounter type: initial encounter Qualified Code(s): W19.XXXA - Unspecified fall, initial encounter (7) Pneumonia: (8) COPD (chronic obstructive pulmonary disease): (9) Acute respiratory failure with hypoxia: (10) Respiratory failure requiring intubation: (11) MOLLY (acute kidney injury): (12) Hypernatremia: (13) Dehydration: (14) Malnourished: Plan Generalized weakness and fatigue Failure to thrive Lives alone Rhabdomyolysis MOLLY Pneumothorax Respiratory failure requiring mechanical ventilation Hypernatremia with dehydration Start D5 fluids start sodium every 4-6 hours Continue fentanyl discontinue midazolam Iatrogenic pneumothorax during central line placement currently patient has a Thora vent attached to suction 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 Continue broad-spectrum antibiotics I do not see any signs of non-STEMI Troponin trending without significant delta MOLLY anticipate improvement with better fluid hydration Check Accu-Cheks every [address] head unremarkable Repeat chest x-ray overnight to monitor pneumothorax on positive pressure ventilation Full code Spoke with his daughter Daughter is medical DPOA Attestations Medical Necessity Statement*: More than 2 midnights anticipated Coding Level of Care Code Critical Care >/= 30 minutes Critical care time (in minutes): 60 The high probability of a clinically significant, sudden or life threatening deterioration, as referenced in this documentation, required my full and direct attention, intervention and personal management. The critical care time shown is in addition to time spent performing any reported separately billable procedures and includes the following: [x] Data and vital sign review and interpretation [x] Patient assessment, examination and intervention [x] Medication orders and management [x] Patient/Family updates as able [x] Care Coordination and Documentation. 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
--- NOTE | 2023-11-03 18:20 | USCV_ITS ---
Aime Randolph Age: 68 Gender: M : 1955 Exam Date: 11/03/2023 20:13 Ordering Phys: Ivonne Woody MD Technologist: JEZ [place] [facility] [place]: nstemi patient is on ventilator in ICU-8 BP: 100 / 81 HR: 95 Rhythm: Sinus Technical Quality: Adequate MEASUREMENTS (Male / Female) Normal Values 2D ECHO LV Diastolic Diameter PLAX 2.5 cm 4.2 - 5.9 / 3.9 - 5.3 cm LV Systolic Diameter PLAX 1.9 cm IVS Diastolic Thickness 2.1 cm 0.6 - 1.0 / 0.6 - 0.9 cm IVS Systolic Thickness 2.2 cm LVPW Diastolic Thickness 2.3 cm 0.6 - 1.0 / 0.6 - 0.9 cm LVPW Systolic Thickness 2.6 cm LVOT Diameter 2.0 cm LV Ejection Fraction 2D Teich 51.3 % LV Ejection Fraction MOD 2C 56.3 % LV Ejection Fraction 2C AL 51.0 % LA Diameter 3.5 cm LA Width 3.2 cm LA Height 4.3 cm RA Width 2.3 cm RA Height 4.1 cm Aorta at Sinotubular Diameter 3.9 cm IVC Diameter 2.4 cm M-MODE Aortic Annulus Diameter 4.3 cm LA Ao Ratio MM 0.9 DOPPLER AV Peak Velocity 132.0 cm/s LVOT Peak Velocity 78.0 cm/s AV Area Cont Eq vti 2.1 cm squared AV Area Cont Eq pk 1.9 cm squared MV Peak Velocity 124.0 cm/s MV Area PHT 5.5 cm squared Mitral E to A Ratio 0.6 MV E' Velocity 32.5 cm/s Mitral E to MV E' Ratio 12.0 Mitral E to LV E' Lateral Ratio 15.3 Mitral E to LV E' Septal Ratio 10.0 TR Peak Velocity 292.0 cm/s TR Peak Gradient 34.1 mmHg TV Peak E Velocity 50.0 cm/s Right Atrial Pressure 5.0 mmHg Pulmonary Artery Systolic Pressu 39.1 mmHg PV Peak Velocity 156.0 cm/s RV Acceleration Time 0.1 s RV Ejection Time 0.3 s RV AcT/ET 0.2 FINDINGS Left Ventricle Severe left ventricular hypertrophy. LV systolic function is normal with EF of 50-55%. Grade 1 diastolic dysfunction Right Ventricle Grossly normal Right Atrium Normal in size Left Atrium Normal in size Mitral Valve Mitral valve is thickened. Aortic Valve Not well-visualized. No significant stenosis or regurgitation. Tricuspid Valve Mild tricuspid regurgitation. RVSP is 35 to 40 mmHg. This is consistent with mild pulmonary hypertension Pulmonic Valve Not visualized Pericardium Normal Aorta Aortic root is dilated IVC Dilated CONCLUSIONS Technically limited quality echocardiogram because of poor ultrasonic windows. LV systolic pressure is normal with EF of 50 to 55%. Grade 1 diastolic dysfunction Severe left ventricular hypertrophy Mild tricuspid regurgitation Mild pulmonary hypertension Aortic root is dilated IVC is dilated. Compared to prior echocardiogram from 2021, LV systolic function appears to be decreased slightly Fausto Conklin MD (Electronically Signed) Final Date: 04 November 2023 12:53 S
--- NOTE | 2023-11-03 18:21 | USCV_ITS ---
Randolph Salomon Age: 68 Gender: M : 1955 Exam Date: 11/03/2023 19:47 Ordering Phys: Ivonne Woody MD Technologist: JEZ Exam Location: [facility] – [place] Indication: nstemi patient is on ventilator in ICU-8 HISTORY: nstemi patient is on ventilator in ICU-8 PROCEDURES: Venous duplex imaging was performed in bilateral lower extremities. The following venous structures were evaluated: common femoral vein, profunda vein, proximal portion of the greater saphenous vein, superficial femoral vein, and the popliteal vein. In addition, the posterior tibial veins were evaluated. Serial compression, augmentation maneuvers, and spectral Doppler flow evaluation were performed, whcih were normal. Bilaterally, the common femoral, superficial femoral, profunda femoral, popliteal, posterior tibial, and greater saphenous veins were identified and interrogated in the standard fashion. These veins were found to be easily compressible with spontaneous blood flow. No evidence of thrombus noted. CONCLUSIONS No evidence of right lower extremity DVT. No evidence of left lower extremity DVT. Adis Mares MD (Electronically Signed) Final Date: 04 November 2023 10:44 S
--- NOTE | 2023-11-03 18:31 | PC.NURSE ---
Patient's phone was taken by his caregiver, unknown name.
[2023-11-03 18:49] LABS: ABG PCO2 54.4 mmHg (35-45); ABG PH Result 7.26 (7.35-7.45); Arterial Blood Gas Hematocrit 45.2 % (42-52); Base Excess ABG -3.8 mmol/L (-2.0-2.0); Blood Gas Operator Identificat Anonymous; Blood Gas Sample Type Arterial; HCO3 ABG 24.1 mmol/L (22-26)
[2023-11-03 19:38] LABS: Thyroid Stimulating Hormone 2.16 uIU/mL (0.27-4.20)
[2023-11-03 19:52] LABS: Sodium 153 mmol/L (136-145); Vitamin B12 > 2000 pg/mL (232-1245)
[2023-11-03] MEDS: vancomycin 1,000 MG in sodium chloride 0.9% 250 ML 250 MG IV (19:52)
[2023-11-03] MEDS: methylPREDNISolone sod succ 40 mg/mL INJ IVP (19:52)
[2023-11-03] MEDS: piperacillin-tazobactam 3.375 GM in sodium chloride 0.9% (plus) 50 ML IV (19:54)
[2023-11-03] MEDS: dextrose 5% 1,000 ML 75 ML IV (19:55)
[2023-11-03 19:56] LABS: Glucose Point of Care 172 mg/dL (70-110)
[2023-11-03] MEDS: heparin 5,000 unit/mL INJ 1 mL 5000 UNIT SUBCUT (19:56)
[2023-11-03] MEDS: sodium chloride 0.9% 1,000 ML 999 ML IV (20:19)
[2023-11-03 20:42] LABS: Lactic Acid level (Lactate) 1.5 mmol/L (0.5-2.2)
[2023-11-03 20:45] LABS: D Dimer 12.08 ug/mLFEU (0-0.59)
--- NOTE | 2023-11-03 21:09 | ECG_ITS ---
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 Measurements Intervals [place] Rate: 91 P: 81 MO: 175 QRS: 60 QRSD: 142 T: 133 QT: 417 QTc: 514 Interpretive Statements SINUS RHYTHM WITH OCCASIONAL VENTRICULAR PREMATURE COMPLEXES WITH OCCASIONAL SUPRAVENTRICULAR PREMATURE COMPLEXES RIGHT BUNDLE BRANCH BLOCK [120+ ms QRS DURATION, UPRIGHT V1, 40+ ms S IN I/aVL/V4/V5/V6] MARKED T-WAVE ABNORMALITY, CONSIDER ANTEROLATERAL ISCHEMIA [-0.5+ mV T-WAVE IN I/aVL/V3-V6] MODERATE T-WAVE ABNORMALITY, CONSIDER INFERIOR ISCHEMIA [-0.1+ mV T-WAVE IN II/aVF] Compared to ECG 11/03/2023 17:35:47 Ventricular premature complex(es) now present Right bundle-branch block now present T-wave abnormality now present Possible ischemia now present Intraventricular conduction delay no longer present Electronically Signed On 11-04-2023 9:30:53 PACKING AND SHIPPING CLERK by Fausto Conklin M.D. [id number]
[2023-11-03 22:13] LABS: Adenovirus Not Detected (NOT DETECT); Chlamydia Pneumoniae Not Detected (NOT DETECT); Coronavirus 229E,HKU1,NL63,OC4 Not Detected (NOT DETECT); Human Metapneumovirus Not Detected (NOT DETECT); Human Rhinovirus/Enterovirus Not Detected (NOT DETECT); Influenza A Not Detected (NOT DETECT); Influenza A H1 Not Detected (NOT DETECT); Influenza A H1-2009 Not Detected (NOT DETECT); Influenza A H3 Not Detected (NOT DETECT); Influenza B Not Detected (NOT DETECT); Mycoplasma Pneumoniae Not Detected (NOT DETECT); Parainfluenza Virus Type 1 Not Detected (NOT DETECT); Parainfluenza Virus Type 2 Not Detected (NOT DETECT); Parainfluenza Virus Type 3 Not Detected (NOT DETECT); Parainfluenza Virus Type 4 Not Detected (NOT DETECT); Respiratory Syncytial Virus A Not Detected (NOT DETECT); Respiratory Syncytial Virus B Not Detected (NOT DETECT); SARS-COV-2 Not Detected (NOT DETECT)
[2023-11-03 22:19] LABS: Estmated Average Glucose 137; Hemoglobin A1C 6.4 % (4.0-6.0)
[2023-11-03 22:22] LABS: Troponin 5 6HR 84.54 ng/L (0-15)
[2023-11-03 22:24] LABS: Sodium 154 mmol/L (136-145)
[2023-11-03 22:34] LABS: Troponin 5 6HR Delta 16.54 ng/L (0-12)
[2023-11-03] MEDS: fentaNYL 1,000 MCG/100 ML BAG 17.5 MCG IV (23:18)
[2023-11-04] VITALS (11 sets, daily range): PULSE 82–90; RESP 16–22; O2SAT 92–99; BMI 20.7
[2023-11-04] MEDS: propofol 1,000 MG/100 ML INJ 2.21 MG IV (01:06)
--- NOTE | 2023-11-04 01:51 | PC.NURSE ---
Doctor Donna was contacted about patient's EKG and monitor showing ST depression and his 6 hour Delta troponin being elevated. He stated that they believed it was ischemia. He ordered for troponins to be checked again.
[2023-11-04 01:52] LABS: Glucose Point of Care 205 mg/dL (70-110)
--- NOTE | 2023-11-04 03:08 | XRR_ITS ---
PROCEDURE INFORMATION: Exam: XR Chest Exam date and time: 11/04/2023 3:15 AM Age: 68 years old Clinical indication: Device placement; Other: Thoravent placement TECHNIQUE: Imaging protocol: Radiologic exam of the chest. Views: 1 view. COMPARISON: CR (CHEST, ) 11/03/2023 6:52 PM FINDINGS: Tubes, catheters and devices: ET tube, left subclavian infusion port and right internal jugular central line are in stable positions. Interval placement of enteric tube with side port at the gastroesophageal junction. Recommend advancement. Lungs: Similar left lower lobe consolidation/collapse. Pleural spaces: No evidence of pneumothorax. Heart/Mediastinum: Unremarkable. No cardiomegaly. Vasculature: Stent in the upper abdomen. Bones/joints: Unremarkable. XR/XR chest 1V portable [id number] IMPRESSION: 1. No evidence of residual pneumothorax. 2. Interval placement of enteric tube with side port at the gastroesophageal junction. Recommend advancement.
[2023-11-04] MEDS: heparin 5,000 unit/mL INJ 1 mL 5000 UNIT SUBCUT (03:26)
[2023-11-04] MEDS: piperacillin-tazobactam 3.375 GM in sodium chloride 0.9% (plus) 50 ML IV (03:26)
[2023-11-04] MEDS: fentaNYL 1,000 MCG/100 ML BAG 15 MCG IV (04:09)
[2023-11-04] MEDS: aspirin 325 mg Tablet OG-TUBE (04:09)
[2023-11-04 04:18] LABS: Basophils % 0.2 %; Hematocrit 42.1 % (37-53); Lymphocytes # 0.6 10^3/uL (0.8-4.8); Lymphocytes % 5.4 %; Mean Corpuscular HGB Conc 31.4 g/dL (30-55); Mean Corpuscular Hemoglobin 30.6 pg (27-33); Mean Corpuscular Volume 97.7 fl (82-101); Mean Platelet Volume 10.7 fL (7.4-10.4); Monocytes % 10.1 %; Neutrophils # 8.55 10^3/uL (1.8-7.7); Nucleated Red Blood Cells % 0 %; Platelet Count 331 10^3/cmm (157-399); Red Blood Count 4.31 10^6/uL (3.85-5.65); White Blood Count 10.18 10^3/uL (3.29-11.43)
[2023-11-04 04:36] LABS: Troponin T (5th) Once 81 ng/L (0-15)
[2023-11-04 04:45] LABS: ABG PCO2 46.2 mmHg (35-45); ABG PH Result 7.31 (7.35-7.45); Arterial Blood Gas Hematocrit 41.5 % (42-52); Base Excess ABG -3.2 mmol/L (-2.0-2.0); Blood Gas Operator Identificat JB; Blood Gas Sample Site Brachial, right; Blood Gas Sample Type Arterial; HCO3 ABG 23.2 mmol/L (22-26); Oxygen Device VENT; PO2 ABG 63.9 mmHg (80.0-100.0); PO2 FiO2 Ratio Arterial Blood 0
[2023-11-04 04:48] LABS: Alanine Aminotransferase 48 U/L (0-41); Alkaline Phosphatase 74 U/L (40-130); Anion Gap 17.2 (5-19); Aspartate Amino Transferase 25 U/L (0-40); Blood Urea Nitrogen 71 mg/dL (8-23); C Reactive Protein 112.4 mg/L (0.0-4.9); Calcium 7.9 mg/dL (8.5-10.5); Carbon Dioxide 23 mmol/L (22-29); Chloride 116 mmol/L (98-107); Globulin 3.7 g/dL (1.3-4.6); Glomerular Filtration Rate 35.6 mL/min (90-130); Glucose 245 mg/dL (65-115); Magnesium 2.8 mg/dL (1.7-2.3); Osmolality Calculated 343 mOsm/kg (285-295); Phosphorus 5.9 mg/dL (2.5-4.5); Potassium 4.2 mmol/L (3.5-5.1); Sodium 152 mmol/L (136-145); Total Bilirubin 0.8 mg/dL (0.15-1.2); Total Protein 6.7 g/dL (6.6-8.7)
[2023-11-04 04:51] LABS: Creatine Phosphokinase 813 U/L (39-308)
[2023-11-04] MEDS: methylPREDNISolone sod succ 40 mg/mL INJ IVP ×2 (06:15→17:47)
[2023-11-04] MEDS: ipratropium-albuterol 3 mL Neb INHALATION ×2 (08:49→14:16)
[2023-11-04] MEDS: norepinephrine 4 MG/250 ML BAG 7.5 MG IV (09:28)
[2023-11-04] MEDS: pantoprazole 40 mg SDV IVP ×2 (10:00→17:47)
--- NOTE | 2023-11-04 10:12 | PC.NUTR ---
per MD and RD discussion, initiate enteral nutrition via OG following RD recs below: -Vital AF 1.2 starting @20 ml/hr and advance 10ml q8 until goal of 60 ml/hr is reached -With 150 ml FWF q6 See RD note for details
--- NOTE | 2023-11-04 10:49 | P.PN_ITS ---
Subjective 2 Subjective: For high D-dimer added heparin Patient is hypoxic requiring FiO2 70% Not ready for weaning trial PEEP 6 Afebrile Sodium still high I will ask pharmacy to run medications for D5 Continue D5 at increased rate of 100 mL/h Recheck sodium frequently Improvement of pneumothorax Will turn off suction recheck chest x-ray after 4 hours Vitals/I&O/Wt Last Vital Signs Temp 97.9 F 11/03/23 20:22 Pulse 82 11/04/23 08:50 Resp 19 H 11/04/23 08:50 BP 100/81 11/03/23 18:15 Pulse Ox 97 11/04/23 08:50 O2 Del Method Mechanical Ventilation 11/04/23 08:50 FiO2 65 11/04/23 08:50 11/03/23 11/04/23 11/04/23 22:59 06:59 14:59 Intake Total 217.016 / 217.016 255.539 / 472.555 Output Total 550 / 550 Balance 217.016 / 217.016 -294.461 / -77.445 Weight last 48 hrs Weight 73.51 kg Weight 73.51 kg Weight 72.575 kg Physical Exam 2 Narrative: Patient is intubated sedated Dehydrated Cachectic, malnourished Dilute clear urine Erythema of scrotal area improving Díaz catheter in place Bilateral breath sounds Thora vent in place Urinary Catheter Management: Díaz: Cath Placed During This Visit: yes Reason for Continuing Indwelling Catheter: Accurate Measurement of Urinary Output in Critically Ill Patients Urinary Catheter Date of Insertion: 11/03/23 Urinary Catheter Time of Insertion: 17:00 Data 11/04/23 03:45 11/04/23 03:45 Micro: Microbiology 11/03/23 17:30 Blood Culture - Preliminary Blood SPECIMEN COLLECTED 11/03/23 17:27 Blood Culture - Preliminary Blood SPECIMEN COLLECTED A&P Assessment and plan (1) Acute respiratory failure with hypoxia: (2) Respiratory failure requiring intubation: (3) COPD (chronic obstructive pulmonary disease): (4) Pneumonia: (5) Fall from standing: Qualifiers: Encounter type: initial encounter Qualified Code(s): W19.XXXA - Unspecified fall, initial encounter (6) Lung cancer: (7) 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: (8) Hypernatremia: (9) Dehydration: (10) MOLLY (acute kidney injury): (11) Malnourished: (12) Port-A-Cath in place: (13) D-dimer, elevated: (14) Rhabdomyolysis: Plan Fall at home Likely related to generalized weakness due to underlying cancer After pneumonia concern for thromboembolic phenomenon considering high D-dimer Add a D-dimer Respiratory failure require mechanical ventilation Hypoxic hypercarbic respite failure FiO2 70% PEEP 6 Heparin added today Noted to be weaned off Will keep him on fentanyl turned off propofol and Versed were discontinued admission Pneumonia and possible thromboembolic phenomenon Dehydration generalized weakness with hypernatremia Continue D5 Try to run medications of D5 Dietary consultation for protein calorie malnourishment and dehydration Patient will get tube feeds started today Levophed is running at 2 mics only Chances of gastric necrosis minimal at this point MOLLY related dehydration Nonoliguric ATN Hypovolemic shock with dehydration Currently at minimal dose of Levophed Patient is not spiking fever No leukocytosis Iatrogenic pneumothorax Resolved Thora vent in place Turn off suction recheck chest x-ray for reaccumulation of pneumothorax Full code Updated the family Recheck sodium later in the day Attestations 2 Medical Necessity Statement*: Continue ICU management Coding Level of Care Code Critical Care >/= 30 minutes Critical care time (in minutes): 40 The high probability of a clinically significant, sudden or life threatening deterioration, as referenced in this documentation, required my full and direct attention, intervention and personal management. The critical care time shown is in addition to time spent performing any reported separately billable procedures and includes the following: [x] Data and vital sign review and interpretation [x ] Patient assessment, examination and intervention [x] Medication orders and management [x] Patient/Family updates as able [x] Care Coordination and Documentation. 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
[2023-11-04] MEDS: dextrose 5% 1,000 ML 75 ML IV (11:01)
[2023-11-04] MEDS: FUROsemide 10 mg/mL SDV 2mL 20 MG IVP (11:33)
[2023-11-04 11:57] LABS: Sodium 147 mmol/L (136-145)
--- NOTE | 2023-11-04 12:00 | XR_ITS ---
WS: [id number] XR chest 1V portable [id number] REASON FOR EXAM: PTX FINDINGS: Small bore chest tube in place over the lateral right upper chest third rib level. Small apical pneum othorax is present. There are reticular interstitial lung opacities in the right lower lung not present on the examinatio n of 317 this AM. There may still be a subpulmonic collection of air in the right pleural space. A 50% or greater left pneumothorax has occurred since the previous examination of 3:17 a.m. the same day. There is no displacement of the midline structures. IMPRESSION: Small remaining pneumothorax on the right. New left pneumothorax.
[2023-11-04] MEDS: piperacillin-tazobactam 3.375 GM in dextrose 5% (plus) 50 ML IV (12:06)
[2023-11-04] MEDS: fentaNYL 1,000 MCG/100 ML BAG 12.5 MCG IV ×2 (12:23→18:50)
[2023-11-04] MEDS: propofol 1,000 MG/100 ML INJ 4.41 MG IV (12:23)
[2023-11-04 13:58] LABS: Bacillus cereus group Not Detected (NOT DETECT); Bacillus subtillis group Not Detected (NOT DETECT); Corynebacterium Not Detected (NOT DETECT); Cutibacterium acnes (P.acnes) Not Detected (NOT DETECT); Enterococcus Not Detected (NOT DETECT); Enterococcus faecalis Not Detected (NOT DETECT); Enterococcus faecium Not Detected (NOT DETECT); Lactobacillus species Not Detected (NOT DETECT); Listeria Not Detected (NOT DETECT); Listeria monocytogenes Not Detected (NOT DETECT); Micrococcus Not Detected (NOT DETECT); Pan Candida Not Detected (NOT DETECT); Pan Gram-Negative Not Detected (NOT DETECT); Staphylococcus lugdunensis Not Detected (NOT DETECT); Streptococcus agalactiae Not Detected (NOT DETECT); Streptococcus anginosus group Not Detected (NOT DETECT); Streptococcus pneumoniae Not Detected (NOT DETECT); Streptococcus pyogenes Not Detected (NOT DETECT); Streptococcus species Not Detected (NOT DETECT)
--- NOTE | 2023-11-04 14:55 | PC.NURSE ---
new left pnumo on cxr, Dr. Woody ordered right side thora vent to be turned to suction
--- NOTE | 2023-11-04 15:30 | XR_ITS ---
WS: [id number] XR chest 1V portable [id number] REASON FOR EXAM: New Pnumo FINDINGS: The endotracheal tube, right IJ central line, chemotherapy infusion catheter, nasogastric tube, and s mall bore right chest tube remain in position unchanged compared to the examination of 12:20 p.m. the same day. There is a small right apical pneumothorax and possibly a small amount of free air in the right pleur al space subpulmonic. Unchanged compared to the examination of earlier today. 50% or greater left pneumothorax. No change compared to the examination of 12:20 p.m. the same day. IMPRESSION: Stable abnormal chest with 50% or greater left pneumothorax.
[2023-11-04 15:45] LABS: Staphylococcus epidermidis Not Detected (NOT DETECT); Staphylococcus species Not Detected (NOT DETECT)
[2023-11-04 15:59] LABS: Sodium 147 mmol/L (136-145)
--- NOTE | 2023-11-04 16:57 | XRR_ITS ---
PROCEDURE INFORMATION: Exam: XR Chest Exam date and time: 11/04/2023 5:21 PM Age: 68 years old Clinical indication: Device placement; Chest tube TECHNIQUE: Imaging protocol: Radiologic exam of the chest. Views: 1 view. COMPARISON: CR (CHEST, ) 11/04/2023 3:55 PM FINDINGS: Tubes, catheters and devices: A right-sided central line has its tip in good position within the SVC. The feeding tube is in good position within the stomach. A left-sided chest tube is noted. Lungs: There is persistent consolidation and volume loss involving the left lung base. Pleural spaces: A small right-sided pleural catheter is noted along with a very tiny right apical pneumothorax. Heart/Mediastinum: Unremarkable. No cardiomegaly. Bones/joints: Unremarkable. Other findings: A left-sided VAD is in good position. XR/XR chest 1V portable [id number] IMPRESSION: Stable tiny right apical pneumothorax Stable and persistent left basilar consolidation
--- NOTE | 2023-11-04 17:26 | PC.NURSE ---
follow up cxr reported to DR. Woody. Dr. John came to bedside and placed chest to to left lateral chest wall
--- NOTE | 2023-11-04 17:31 | P.TS_ITS ---
Transfer Summary Providers Date of Admission: 11/03/23 17:43 Date of Discharge/Transfer: 11/04/23 Attending Provider at Admission: Ivonne Woody MD Attending Provider at Transfer: Ivonne Woody MD Primary Care Provider: Cathy Trevizo MD Transfer Plans: Anticipated date of transfer: 11/04/23 . 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: Status: Acute (8) Hypernatremia: Status: Acute (9) Dehydration: Status: Acute (10) MOLLY (acute kidney injury): Status: Acute (11) Malnourished: Status: Acute (12) Port-A-Cath in place: Status: Acute (13) D-dimer, elevated: Status: Acute (14) Rhabdomyolysis: Status: Acute Reason for Visit Reason for Visit found on floor, contusion Hospital Course Hospital Course 68-year-old male who was admitted yesterday to our hospital for hypoxic hypercarbic respiratory failure, a friend called 911 when he was found on the floor of his house, apparently he was on the floor for about 2 to 3 days, carpet was glued on his skin patient was not able to ambulate at all, he has history of squamous cell poorly differentiated lung cancer, he started chemotherapy December 2022 he finished his last chemotherapy cycle few months ago, recent PET scan showed increased activity right upper lobe, he follows up with Dr. Hebert in [place], he is full code, daughter lives in [place] who is medical DPOA. Patient was intubated by the ER physician, during central line placement right pneumothorax developed, Thora vent was placed by the ER which resolved right- sided pneumothorax, patient has a right IJ, Díaz catheter, art line was not placed Patient was put on Levophed for hypovolemic shock, fentanyl with minimal vent settings FiO2 60% PEEP 5, EKG did not show ischemic or infarctive changes, troponins were trending down, his D-dimer was 12.08 there was concern related to PE related fall at home he was put on heparin drip. We were not able to get CTA chest because his creatinine was 1.6 on admission and today it is 1.9, on admission sodium was 154 today's 147 with D5, urine output 550 mL in 16 hours, no fever, white count is 10K, he has been put on vancomycin and Zosyn since admission, requiring Levophed at 2 mics, while we were doing repeat chest x-ray for his right-sided pneumothorax incidental finding of 50% pneumothorax on left side, ER physician will put a chest tube, Patient has been accepted by 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 Physical Exam Narrative: Patient is intubated sedated Dehydrated Cachectic, malnourished Dilute clear urine Erythema of scrotal area improving Díaz catheter in place Bilateral breath sounds Thora vent in place Urinary Catheter Management: Díaz: Cath Placed During This Visit: yes Reason for Continuing Indwelling Catheter: Accurate Measurement of Urinary Output in Critically Ill Patients Urinary Catheter Date of Insertion: 11/03/23 Urinary Catheter Time of Insertion: 17:00 TS Data Studies Completed and Pending Pending at discharge Category Date Time Status CXRP [XR chest 1V portable [id number]] Routine Exams 11/04/23 16:57 Ordered Arterial Blood Gas W/O Coox AM LABS Lab 11/05/23 04:00 Ordered Arterial Blood Gas W/O Coox Stat Lab 11/03/23 18:35 Results Basic Metabolic Panel AM LABS Lab 11/05/23 04:00 Ordered Blood Culture Stat Lab 11/03/23 17:30 Results Complete Blood Count w/Auto AM LABS Lab 11/05/23 04:00 Ordered Platelet Count Q2D Lab 11/06/23 04:00 Ordered Platelet Count Q2D Lab 11/08/23 04:00 Ordered Sodium Q4H Lab 11/04/23 19:21 Ordered Sodium Q4H Lab 11/04/23 23:21 Ordered Sputum Culture and Gram Stain Stat Lab 11/03/23 16:20 Results Vancomycin Trough Timed Lab 11/06/23 00:00 Ordered Completed Studies During Hospitalization Category Date Time Status CT head wo con* [id number] Stat Cat Scan 11/03/23 15:13 Completed CXRP [XR chest 1V portable [id number]] Routine Exams 11/04/23 15:30 Completed XR chest 1V portable [id number] Routine Exams 11/03/23 18:00 Completed XR chest 1V portable [id number] Routine Exams 11/04/23 12:00 Completed XR chest 1V portable [id number] Stat Exams 11/03/23 15:09 Completed XR chest 1V portable [id number] Stat Exams 11/03/23 16:11 Completed XR chest 1V portable [id number] Stat Exams 11/03/23 16:31 Completed XR chest 1V portable [id number] Stat Exams 11/04/23 03:08 [place] [id number] Routine Ultrasound 11/03/23 18:21 Completed CV. echo complete* [id number] Routine Ultrasound 11/03/23 18:20 Completed Laboratory Last Values WBC 10.18 10^3/uL (3.29-11.43) 11/04/23 03:45 RBC 4.31 10^6/uL (3.85-5.65) 11/04/23 03:45 Hgb 13.20 g/dL (11.27-16.99) 11/04/23 03:45 Hct 42.1 % (37-53) 11/04/23 03:45 MCV 97.7 fl (82-101) D 11/04/23 03:45 MCH 30.6 pg (27-33) 11/04/23 03:45 MCHC 31.4 g/dL (30-55) 11/04/23 03:45 RDW 14.0 % (12.1-15.1) 11/04/23 03:45 Plt Count 331 10^3/cmm (157-399) 11/04/23 03:45 MPV 10.7 fL (7.4-10.4) H 11/04/23 03:45 Neut % (Auto) 84.0 % 11/04/23 03:45 Lymph % (Auto) 5.4 % 11/04/23 03:45 [place] % (Auto) 10.1 % 11/04/23 03:45 Eos % (Auto) 0.0 % 11/04/23 03:45 Baso % (Auto) 0.2 % 11/04/23 03:45 Neut # (Auto) 8.55 10^3/uL (1.8-7.7) H 11/04/23 03:45 Lymph # (Auto) 0.6 10^3/uL (0.8-4.8) L 11/04/23 03:45 [place] # (Auto) 1.0 10^3/uL (0.2-0.9) H 11/04/23 03:45 Eos # (Auto) 0.0 10^3/uL (0.0-0.8) 11/04/23 03:45 Baso # (Auto) 0.0 10^3/uL (0.0-0.1) 11/04/23 03:45 Nucleated RBC % (auto) 0 % 11/04/23 03:45 Nucleated RBCs # 0.0 /100WBC 11/04/23 03:45 D-Dimer 12.08 ug/mLFEU (0-0.59) H 11/03/23 19:35 Specimen Type Arterial 11/04/23 04:33 Sample Site Brachial, right 11/04/23 04:33 ABG pH 7.31 (7.35-7.45) L 11/04/23 04:33 ABG pCO2 46.2 mmHg (35-45) H 11/04/23 04:33 ABG pO2 63.9 mmHg (80.0-100.0) L 11/04/23 04:33 ABG PO2/FiO2 Ratio 0 11/04/23 04:33 ABG HCO3 23.2 mmol/L (22-26) 11/04/23 04:33 ABG O2 Saturation 99.7 11/03/23 16:24 ABG Base Excess -3.2 mmol/L (-2.0-2.0) L 11/04/23 04:33 Josh Test N/a 11/04/23 04:33 A-a O2 Gradient 39.0 mmHg (5-10) H 11/03/23 16:24 Hematocrit 41.5 % (42-52) L 11/04/23 04:33 Hgb O2 Saturation 98.8 % (95-100) 11/03/23 16:24 Carboxyhemoglobin 0.5 %THgb (0.4-20.1) 11/03/23 16:24 Methemoglobin 0.4 % (0.4-1.5) 11/03/23 16:24 Total Hemoglobin 15.9 g/dL (14-18) 11/03/23 16:24 Sodium 159.0 mmol/L (131-143) H 11/03/23 16:24 Potassium 3.6 mmol/L (3.5-5.0) 11/03/23 16:24 Glucose 167.0 mg/dL (70-115) H 11/03/23 16:24 Ionized Calcium 1.2 mmol/L (1.1-1.4) 11/03/23 16:24 O2 Delivery Device Vent 11/04/23 04:33 FiO2 60.0 % 11/04/23 04:33 Tidal Volume 0.50 11/04/23 04:33 PEEP 6.0 cmH20 11/04/23 04:33 Product Finisher ID Hola 11/04/23 04:33 Sodium 147 mmol/L (136-145) H 11/04/23 15:25 Potassium 4.2 mmol/L (3.5-5.1) 11/04/23 03:45 Chloride 116 mmol/L (98-107) H 11/04/23 03:45 Carbon Dioxide 23 mmol/L (22-29) 11/04/23 03:45 Anion Gap 17.2 (5-19) 11/04/23 03:45 BUN 71 mg/dL (8-23) H 11/04/23 03:45 Creatinine 1.9 mg/dL (0.7-1.2) H 11/04/23 03:45 GFR Calculation 35.6 mL/min (90-130) L 11/04/23 03:45 Glucose 245 mg/dL (65-115) H 11/04/23 03:45 POC Glucose 205 mg/dL (70-110) H 11/04/23 01:45 Estimat Average Glucose 137 11/03/23 15:23 Hemoglobin A1c 6.4 % (4.0-6.0) H 11/03/23 15:23 Calculated Osmolality 343 mOsm/kg (285-295) H 11/04/23 03:45 Lactic Acid 2.3 mmol/L (0.5-2.2) H 11/03/23 15:23 Lactic Acid (Sepsis) 1.5 mmol/L (0.5-2.2) 11/03/23 19:35 Calcium 7.9 mg/dL (8.5-10.5) L 11/04/23 03:45 Phosphorus 5.9 mg/dL (2.5-4.5) H 11/04/23 03:45 Magnesium 2.8 mg/dL (1.7-2.3) H 11/04/23 03:45 Total Bilirubin 0.8 mg/dL (0.15-1.2) 11/04/23 03:45 AST 25 U/L (0-40) 11/04/23 03:45 ALT 48 U/L (0-41) H 11/04/23 03:45 Alkaline Phosphatase 74 U/L (40-130) 11/04/23 03:45 Creatine Kinase 813 U/L (39-308) H* 11/04/23 03:45 Troponin T 5th Gen ng/L 81 ng/L (0-15) H 11/04/23 03:45 Troponin T Baseline 68 ng/L (0-15) H 11/03/23 15:23 Troponin T 120 Minute 77.16 ng/L (0-15) H 11/03/23 17:27 Delta Troponin T 9.16 ABS# (0-10) 11/03/23 17:27 Troponin T Hi Sens 6Hr 84.54 ng/L (0-15) H 11/03/23 21:51 Troponin T Hi Sens 6Hr Delta 16.54 ng/L (0-12) H* 11/03/23 21:51 C-Reactive Protein 112.4 mg/L (0.0-4.9) H 11/04/23 03:45 Total Protein 6.7 g/dL (6.6-8.7) 11/04/23 03:45 Albumin 3.0 g/dL (3.5-5.2) L 11/04/23 03:45 Globulin 3.7 g/dL (1.3-4.6) 11/04/23 03:45 Vitamin B12 > 2000 pg/mL (232-1245) H 11/03/23 17:27 Procalcitonin 0.20 ng/mL (0-0.5) 11/03/23 17:27 TSH 2.16 uIU/mL (0.27-4.20) 11/03/23 17:27 Urine Color Yellow (Yellow) 11/03/23 17:07 Urine Appearance Clear (CLEAR) 11/03/23 17:07 Urine pH 6 (5-7) 11/03/23 17:07 Ur Specific [place] 1.020 (1.005-1.030) 11/03/23 17:07 Urine Protein 3+ (Negative) H 11/03/23 17:07 Urine Glucose (UA) Norm (Normal) 11/03/23 17:07 Urine Ketones 1+ (Negative) H 11/03/23 17:07 Urine Blood 3+ (Negative) H 11/03/23 17:07 Urine Nitrate Negative (Negative) 11/03/23 17:07 Urine Bilirubin Neg (Negative) 11/03/23 17:07 Urine Urobilinogen Norm mg/dL (Negative) 11/03/23 17:07 Ur Leukocyte Esterase Negative (Negative) 11/03/23 17:07 Urine RBC 5-10 /hpf (0-2) H 11/03/23 17:07 Urine WBC 0-4 /hpf (0-5) H 11/03/23 17:07 Ur Squamous Epith Cells 0-4 /hpf (0-5) H 11/03/23 17:07 Amorphous Sediment Trace /hpf 11/03/23 17:07 Urine Bacteria Trace /hpf (NONE) 11/03/23 17:07 Hyaline Casts 0-4 /lpf H 11/03/23 17:07 Fine Granular Casts 0-4 /lpf H 11/03/23 17:07 Urine Mucus 1+ /hpf 11/03/23 17:07 Serum Ketones Negative (Negative) 11/03/23 15:23 Adenovirus (PCR) Not detected (NOT DETECT) 11/03/23 19:16 C. pneumoniae DNA (PCR) Not detected (NOT DETECT) 11/03/23 19:16 Coronavirus 229E (PCR) Not detected (NOT DETECT) 11/03/23 19:16 Human Metapneumovir PCR Not detected (NOT DETECT) 11/03/23 19:16 Influenza A (H1) PCR Not detected (NOT DETECT) 11/03/23 19:16 Influ A (H1/09) PCR Not detected (NOT DETECT) 11/03/23 19:16 Influenza A (H3) PCR Not detected (NOT DETECT) 11/03/23 19:16 Influenza Type A (PCR) Not detected (NOT DETECT) 11/03/23 19:16 Influenza Type B (PCR) Not detected (NOT DETECT) 11/03/23 19:16 M. pneumoniae (PCR) Not detected (NOT DETECT) 11/03/23 19:16 Parainfluenza 1 (PCR) Not detected (NOT DETECT) 11/03/23 19:16 Parainfluenza 2 (PCR) Not detected (NOT DETECT) 11/03/23 19:16 Parainfluenza 3 (PCR) Not detected (NOT DETECT) 11/03/23 19:16 Parainfluenza 4 (PCR) Not detected (NOT DETECT) 11/03/23 19:16 RSV Type A (PCR) Not detected (NOT DETECT) 11/03/23 19:16 RSV Type B (PCR) Not detected (NOT DETECT) 11/03/23 19:16 Entero/Rhino (PCR) Not detected (NOT DETECT) 11/03/23 19:16 SARS-CoV-2 (PCR) Not detected (NOT DETECT) 11/03/23 19:[address] 11/03/23 15:13 IMPRESSION: No intracranial posttraumatic changes. Recent Clincial Data Last Vital Signs Temp 97.9 F 11/03/23 20:22 Pulse 84 11/04/23 14:16 Resp 16 11/04/23 14:26 BP 100/81 11/03/23 18:15 Pulse Ox 97 11/04/23 14:26 O2 Del Method Mechanical Ventilation 11/04/23 14:16 FiO2 70 11/04/23 15:01 Vital Signs Pulse Resp Pulse Ox O2 Del Method FiO2 11/04/23 15:01 70 11/04/23 14:26 16 97 55 11/04/23 14:16 84 21 H 96 Mechanical Ventilation 55 11/04/23 14:00 90 11/04/23 12:10 19 H 98 60 11/04/23 08:50 82 19 H 97 Mechanical Ventilation 65 11/04/23 07:58 22 H 98 70 11/04/23 05:43 87 Intake & Output/Weight 11/02/23 11/03/23 11/04/23 11/05/23 06:59 06:59 06:59 06:59 Intake Total 472.555 / 813.824 2842.087 / 1193.087 Output Total 550 / 550 Balance -77.445 / -77.445 1193.087 / 1193.087 Weight 73.51 kg Vitals Last Vital Signs Temp 97.9 F 11/03/23 20:22 Pulse 84 11/04/23 14:16 Resp 16 11/04/23 14:26 BP 100/81 11/03/23 18:15 Pulse Ox 97 11/04/23 14:26 O2 Del Method Mechanical Ventilation 11/04/23 14:16 FiO2 70 11/04/23 15:01 TS Medications Medications Acetaminophen (Acetaminophen 500 Mg Tablet) 500 mg PO Q4H PRN PRN Reason: fever Albuterol/Ipratropium (Ipratropium-Albuterol 3 Ml Neb) 3 ml INHALATION Q6H PRN PRN Reason: SHORTNESS OF BREATH Last Admin: 11/04/23 08:49 Dose: 3 ml Albuterol/Ipratropium (Ipratropium-Albuterol 3 Ml Neb) 3 ml INHALATION Q6H.RESP JULITA Last Admin: 11/04/23 14:16 Dose: 3 ml Heparin Sodium (Porcine) (Heparin 5,000 Unit/Ml Inj 1 Ml) 0 unit IV PRN PRN; Protocol PRN Reason: Heparin weight-base protocol norepinephrine (Levophed) 4 mg in 250 mls @ 0 mls/hr IV .Q0M JULITA; Protocol Last Admin: 11/04/23 09:28 Dose: 2 mcg/min, 7.5 mls/hr Fentanyl (Sublimaze) 1,000 mcg in 100 mls @ 0 mls/hr IV .Q0M JULITA; Protocol Last Admin: 11/04/23 12:23 Dose: 125 mcg/hr, 12.5 mls/hr Dextrose (D5w) 1,000 mls @ 100 mls/hr IV .Q10H JULITA Last Admin: 11/04/23 11:01 Dose: 75 mls/hr Propofol (Diprivan) 1,000 mg in 100 mls @ 0 mls/hr IV .Q0M JULITA; Protocol Last Admin: 11/04/23 12:23 Dose: 10 mcg/kg/min, 4.41 mls/hr Piperacillin Sod/Tazobactam (Sod 3.375 gm/ Dextrose) 50 mls @ 12.5 mls/hr IV Q8H JULITA; Protocol Last Admin: 11/04/23 12:06 Dose: 12.5 mls/hr Vancomycin HCl 1,000 mg/ (Dextrose) 250 mls @ 250 mls/hr IV Q18H [facility]; Protocol Last Admin: 11/04/23 12:23 Dose: 250 mls/hr Heparin Sodium/Sodium Chloride (Heparin Drip) 25,000 unit in 500 mls @ 0 mls/hr IV .Q0M [facility]; Protocol Methylprednisolone Sodium Succinate (Methylprednisolone Sod Succ 40 Mg/Ml Inj) 40 mg IVP Q12H [facility] Last Admin: 11/04/23 06:15 Dose: 40 mg Ondansetron HCl (Ondansetron 2 Mg/Ml Sdv 2 Ml) 4 mg IVP Q6H PRN PRN Reason: NAUSEA AND VOMITING Pantoprazole Sodium (Pantoprazole 40 Mg Sdv) 40 mg IVP BID JULITA Last Admin: 11/04/23 10:00 Dose: 40 mg Discontinued Medications Aspirin (Aspirin 325 Mg Tablet) 325 mg OG-TUBE ONCE ONE Stop: 11/04/23 03:59 Last Admin: 11/04/23 04:09 Dose: 325 mg Etomidate (Etomidate 2 Mg/Ml Inj Sdv 10 Ml) 20 mg IVP NOW ONE Stop: 11/03/23 15:50 Last Admin: 11/03/23 15:46 Dose: 20 mg Furosemide (Furosemide 10 Mg/Ml Sdv 2ml) 20 mg IVP ONCE ONE Stop: 11/04/23 11:06 Last Admin: 11/04/23 11:33 Dose: 20 mg Heparin Sodium (Porcine) (Heparin 5,000 Unit/Ml Inj 1 Ml) 5,000 unit SUBCUT Q8H [facility] Last Admin: 11/04/23 03:26 Dose: 5,000 unit Sodium Chloride (Sodium Chloride 0.9%) 1,000 mls @ 999 mls/hr IV .Q1H1M [facility] Stop: 11/03/23 17:45 Last Admin: 11/03/23 20:19 Dose: 999 mls/hr Midazolam HCl (Versed) 100 mg in 100 mls @ 0 mls/hr IV .Q0M JULITA; Protocol Last Titration: 11/03/23 16:46 Dose: 2 mg/hr, 2 mls/hr Sodium Chloride (Sodium Chloride 0.9%) 1,000 mls @ 100 mls/hr IV .Q10H JULITA Piperacillin Sod/Tazobactam (Sod 3.375 gm/ Sodium Chloride) 50 mls @ 12.5 mls/hr IV Q8H JULITA; Protocol Last Admin: 11/04/23 03:26 Dose: 12.5 mls/hr Vancomycin HCl 1,000 mg/ (Sodium Chloride) 250 mls @ 250 mls/hr IV Q18H JULITA; Protocol Last Admin: 11/03/23 19:52 Dose: 250 mls/hr Vecuronium [place] (Vecuronium 10 Mg Sdv) 10 mg IVP ONCE ONE Stop: 11/03/23 15:48 Last Admin: 11/03/23 15:46 Dose: 10 mg Allergies loratadine Allergy (Verified 11/03/23 15:20) Unknown rosuvastatin [From Crestor] Allergy (Verified 11/03/23 15:20) Unknown simvastatin Allergy (Verified 11/03/23 15:20) Unknown influenza vaccine Allergy (Uncoded 11/03/23 15:20) ALGY-Anaphylaxis trouble breathing Home Medications carvedilol 12.5 mg tablet 6.25 mg PO BID 11/22/22 [History Confirmed 11/04/23] amlodipine 10 mg tablet 10 mg PO DAILY 12/06/22 [History Confirmed 11/04/23] loperamide 2 mg tablet (Imodium A-D) 2 mg PO .COMPLEX #30 tabs 04/14/23 [Rx Confirmed 11/04/23] carbamide peroxide 6.5 % ear drops 4 drp otic (ear) .TWO TIMES WEEKLY PRN Ear Wax 11/04/23 [History Confirmed 11/04/23] cyanocobalamin (vitamin B-12) 1,000 mcg/mL injection solution 1,000 mcg IM Q30D 11/04/23 [History Confirmed 11/04/23] docosahexaenoic acid (dha)-epa capsule 1 cap PO BID 11/04/23 [History Confirmed 11/04/23] multivitamin with iron-mineral 1 tab PO DAILY 11/04/23 [History Confirmed 11/04/23] pantoprazole 20 mg tablet,delayed release 20 mg PO QAM 11/04/23 [History Confirmed 11/04/23] pravastatin 40 mg tablet 20 mg PO QPM 11/04/23 [History Confirmed 11/04/23] Discharge Plan Discharge Patient Disposition: Xfer Other Condition: Stable Prescriptions: No Action carvedilol 12.5 mg tablet 6.25 mg PO BID Rx Instructions: must administer with a meal/food loperamide [Imodium A-D] 2 mg tablet 2 mg PO .COMPLEX Qty: 30 1RF Rx Instructions: administer 2 tabs after first loose stool then 1 tab after each subsequent loose stool, no more than 4 tabs daily amlodipine 10 mg tablet 10 mg PO DAILY pravastatin 40 mg Tablet 20 mg PO QPM pantoprazole 20 mg Tablet,Delayed Release (Dr/Ec) 20 mg PO QAM cyanocobalamin (vitamin B-12) 1,000 mcg/mL Solution 1,000 mcg IM Q30D Rx Instructions: GIVEN IN CLINIC carbamide peroxide 6.5 % Drops 4 drp otic (ear) .TWO TIMES WEEKLY PRN (Reason: Ear Wax) Rx Instructions: LEFT EAR Multivitamin-Minerals Tablet 1 tab PO DAILY Fish Oil (with DHA-EPA) Capsule 1 cap PO BID Referrals: Cathy Trevizo MD [Primary Care Provider] - Patient Instructions: Altered Mental Status (ED), Opioid Safety Transfer Attestations Time Spent in Transfer Care: critical care time Critical Care Time (min): 60 Quality Metrics Clinical Quality Measures [ No reported AMI, CVA or VTE this stay] Coding Level of Care Code Acute Code for Chg Fwd Diagnoses Acute respiratory failure with hypoxia J96.01 Respiratory failure requiring intubation J96.90 COPD (chronic obstructive pulmonary disease) J44.9 Pneumonia J18.9 Fall from standing W19.XXXA Encounter type: initial encounter Lung cancer C34.90 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
[2023-11-04 17:49] LABS: ABG PCO2 43.7 mmHg (35-45); ABG PH Result 7.34 (7.35-7.45); Arterial Blood Gas Hematocrit 38.3 % (42-52); Base Excess ABG -2.2 mmol/L (-2.0-2.0); Blood Gas Allen Test Pos; Blood Gas Sample Type Arterial; Carboxyhemoglobin 0.5 %THgb (0.4-20.1); HCO3 ABG 23.6 mmol/L (22-26); HGB O2 Sat 97.3 % (95-100); Ionized Calcium Level - ABG 1.2 mmol/L (1.1-1.4); Methemoglobin 0.5 % (0.4-1.5); Oxygen Saturation ABG 98.4; Total Hemoglobin 12.5 g/dL (14-18)
[2023-11-04 17:51] LABS: Alveolar-Arterial Oxygen Gradi 42.4 mmHg (5-10); Blood Gas Operator Identificat MONRO; Blood Gas Sample Site Radial, right; Oxygen Device VENT; PO2 FiO2 Ratio Arterial Blood 0
--- NOTE | 2023-11-04 18:08 | PC.NURSE ---
Report called to [facility]
[2023-11-04 18:18] LABS: Blood Gas Sample Site Not specified; Oxygen Device VENT
[2023-11-04] MEDS: norepinephrine 4 MG/250 ML BAG 30 MG IV (18:50)
[2023-11-04] MEDS: propofol 1,000 MG/100 ML INJ 17.64 MG IV (18:52)
--- NOTE | 2023-11-04 19:19 | PC.NURSE ---
Shift summart: this am when HCP at bedside this nurse mentioned unequal chest rise and diminished sound in left. order to turn thoravent to suction if patient decompensates. see following notes
--- NOTE | 2023-11-04 19:52 | PC.NURSE ---
Addendum entered by Rocco Farha RN 11/04/23 20:03: witnessed waste Original Note: Witnessed waste 87 mL fentnyl gtt and 70 ml Versed gtt.
--- NOTE | 2023-11-04 20:03 | PC.NURSE ---
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
--- NOTE | 2023-11-07 07:24 | P.PNCC_ITS ---
Critical Care Event Note Was contacted by Dr. Woody and asked to place a left chest tube. Patient was admitted through the ER and has developed a left-sided pneumothorax approximately 50% reviewed chest x-ray and report. Patient is ventilated and sedated in ICU. Critical Care Time Code activated: No Critical Care Time (min): 0 Procedures Chest Tube^ Chest Tube 1: Chest tube location: Mid-Axillary Chest Size of tube: 24 Chest tube procedure: Yes betadine prep and sterile drapes applied Tube sutured to skin: Yes Sterile dressing applied: Yes Incision made with: #10 blade Post procedure: sutured to skin and sterile dressing applied Pelaez of air heard: Yes Tube Drainage: none Post procedure CXR?: Yes Patient tolerated procedure: Yes Progress: Left pneumothorax resolved. Chest tube in good position at this time. When placing a chest tube advanced felt mild resistance and stopped all the ports w ere within the chest cavity at that point was concerned since patient developed hemopneumothorax has a history of cancer of advancing and causing complication. Coding Level of Care Code Acute Code for Chg Fwchiquita
== END 2023-11-04 20:03 | disposition short-term general hospital (02) | DRG 208 ==
LOC: ER 16:53 → ICU 17:50
PROVIDERS: Internal Medicine; Admitting Provider Internal Medicine; Emergency Provider Family Medicine; PCP Family Medicine; Visit Provider Internal Medicine
DX: J96.01 Acute respiratory failure with hypoxia (principal); J18.9 Pneumonia, unspecified organism; R57.1 Hypovolemic shock; C34.11 Malignant neoplasm of upper lobe, right bronchus or lung; M62.82 Rhabdomyolysis; E87.0 Hyperosmolality and hypernatremia; N17.9 Acute kidney failure, unspecified; E46 Unspecified protein-calorie malnutrition; R64 Cachexia; J95.811 Postprocedural pneumothorax; Z87.891 Personal history of nicotine dependence; I25.10 Atherosclerotic heart disease of native coronary artery without angina pectoris; Z95.5 Presence of coronary angioplasty implant and graft; I25.2 Old myocardial infarction; J44.9 Chronic obstructive pulmonary disease, unspecified; Z86.73 Personal history of transient ischemic attack (TIA), and cerebral infarction without residual deficits; Z86.718 Personal history of other venous thrombosis and embolism; I10 Essential (primary) hypertension; K21.9 Gastro-esophageal reflux disease without esophagitis; Z95.828 Presence of other vascular implants and grafts; E86.0 Dehydration; Z68.20 Body mass index [BMI] 20.0-20.9, adult; R62.7 Adult failure to thrive; I95.9 Hypotension, unspecified; Y84.8 Other medical procedures as the cause of abnormal reaction of the patient, or of later complication, without mention of misadventure at the time of the procedure
CPT/HCPCS: 31500; 32551; 36415; 36416; 36556; 36592; 36600; 51702; 70450; 71045; 80048; 80051; 80053; 81001; 82009; 82330; 82550; 82607; 82803; 82805; 82962; 83036; 83605; 83735; 84100; 84145; 84295; 84443; 84484; 85025; 85378; 86140; 87040; 87070; 87077; 87186; 87205; 87486; 87581; 87633; 93005; 93306; 93970; 94002; 94003; 94640; 94799; 96365; 96366; 96367; 96372; 96375; 96376; 99291; 99292; C9113; J1644; J1940; J2250; J2543; J2704; J2920; J3010; J3370; J3490; J7030; J7050; J7060; J7070